=== PATIENT | male | born 1935 | race Two or more races ===

== ENCOUNTER 2018-01-09 15:01 | Inpatient (IN) | payer MEDICAID ==
[~2018-01-09] VITALS: Ht 157.5 cm; Wt 70.9 kg
[~2018-01-09 15:01] MED LIST: ACETAMINOPHEN-1 EAC1 ORAL; ACETAMINOPHEN120 MG ORAL; COLACE100 MG ORAL; LISINOPRIL10 MG ORAL; MILK OF MA400 MG/51 ORAL; TAMSULOSIN HCL0.4 MG ORAL
[2018-01-09 15:25] VITALS: BP 163/90
[2018-01-09] MEDS ORDERED: Phenazopyridine 200mg tab ORAL ONE (15:30)
[2018-01-09] MEDS ORDERED: Bacitracin Oint UD TOPIC ONE (15:30)
[2018-01-09] MEDS ORDERED: Tetanus/Diptheria/Pertussis Vaccine 0.5ml Syr IM ONE (15:30)
--- NOTE | 2018-01-09 15:30 | Emergency Room Report ---
History of Present Illness General Chief Complaint: Male Urogenital Problems Source: Patient (Mariela Nunez) Present Illness HPI 82-year-old male presents to the emergency department with several complaints. Pt. reports Dysuria, he denies fevers, chills, nausea, vomiting, abdominal pain. Patient reports his dysuria as 5 out of 10 in severity. Patient also states that he sustained a scratch from a dog yesterday on the right forearm. Patient does not know when his last tetanus vaccination was. Patient also is reporting that he has been out of his insulin for 3 days and his sugar is high. Patient reports past medical history of insulin-dependent diabetes, BPH, hypertension. (Mariela Nunez) Allergies: Coded Allergies: No Known Allergies (Unverified , 02/14/16) Patient History Limited by: language barrier Past Medical History: see triage record Past Surgical History: none Pertinent Family History: none Reviewed Nursing Documentation: PMH: Agreed; PSxH: Agreed (Mariela Nunez) Nursing Documentation-PMH Hx Hypertension: Yes Hx Diabetes: Yes - CKD STAGE 4 Hx Cerebrovascular Accident: No - BPH Hx Dementia: Yes (Mariela Nunez) Review of Systems All Other Systems: negative except mentioned in HPI (Mariela Nunez) Physical Exam Vital Signs Date Time Temp Pulse Resp B/P (MAP) Pulse Ox O2 Delivery O2 Flow Rate FiO2 01/09/18 15:12 98.7 84 18 163/90 95 Room Air 98.8 Sp02 EP Interpretation: reviewed, normal General Appearance: no apparent distress, alert, GCS 15, non-toxic, Chronically Ill Head: normocephalic, atraumatic Eyes: bilateral eye normal inspection, bilateral eye PERRL ENT: hearing grossly normal, normal voice Neck: full range of motion Respiratory: chest non-tender, lungs clear, normal breath sounds, no wheezing, speaking full sentences Cardiovascular #1: regular rate, rhythm, no edema Gastrointestinal: non tender, soft, other - mild lower abdominal distention Rectal: deferred Genitourinary: normal inspection, no CVA tenderness Musculoskeletal: back normal, gait/station normal, normal range of motion, non- tender Neurologic: alert, oriented x3, responsive, motor strength/tone normal, sensory intact, normal gait, speech normal, grossly normal Psychiatric: judgement/insight normal Skin: normal color, no rash, warm/dry, well hydrated, other - Skin tear/ scratch 3cm right lateral forearm, not bleeding. (Mariela Nunez) Medical Decision Making PA Attestation Dr. Espinal is my supervising physician whom pt. management has been discussed with. (Mariela Nunez) Diagnostic Impression: Primary Impression: UTI (urinary tract infection) Qualified Codes: N30.01 - Acute cystitis with hematuria Additional Impressions: Hyperglycemia Acute kidney injury ER Course 82-year-old male presents to the emergency department with several complaints. Pt. reports Dysuria, he denies fevers, chills, nausea, vomiting, abdominal pain. Patient reports his dysuria as 5 out of 10 in severity. Patient also states that he sustained a scratch from a dog yesterday on the right forearm. Patient does not know when his last tetanus vaccination was. Patient also is reporting that he has been out of his insulin for 3 days and his sugar is high. Patient reports past medical history of insulin-dependent diabetes, BPH, hypertension. PT MEDS: on 40mg Lasix daily, 10mg Amlodipine daily, 5mg Finasteride daily, 0.4mg Tamulosin QHS, Hydroxyzine 50mg Q6 pRN. Pt. also rx'd 600mg IBU and unknown dosage of Insulin. Ddx considered but are not limited to hyperglycemia, HONK, DKA, Encephalopathy , Renal failure, Cellulitis-animal bite. Vital signs: are WNL, pt. is afebrile H&PE are most consistent with [ ] ORDERS: - CBC -CMP -Acetone -UA: nitrite positive for UTI -Troponin -EKG: -CXR ED INTERVENTIONS: None required at this time. DISCHARGE: At this time pt. is stable for d/c to home. Will provide printed patient care instructions, and any necessary prescriptions. Care plan and follow up instructions have been discussed with the patient prior to discharge. (Mariela Nunez) ER Course I had a [id number] Encounter with this patient, urinalysis revealed evidence of UTI, he had 200 mL of urine output after Huerta catheter, he was given Rocephin, IV fluids, insulin for his hyperglycemia, I spoke with Dr. Cruz who agreed to admit the patient, hopefully his renal function improves after Huerta catheter placement and tighter glucose control. Patient has normal CO2, do not suspect DKA, will admit. (LAYNE ESPINAL M.D) EKG Diagnostic Results EP Interpretation: Dr. Espinal Rate: normal - 68 BPM Rhythm: NSR ST Segments: no acute changes ASA given to the pt in ED: No PA Scribe Text This Interpretation was scribed by SYLVIA Nunez. (Mariela Nunez) Last Vital Signs Date Time Temp Pulse Resp B/P (MAP) Pulse Ox O2 Delivery O2 Flow Rate FiO2 01/09/18 15:25 98.8 84 18 163/90 95 Room Air 98.8 (Mariela Nunez) Disposition: ADMITTED INPATIENT Condition: Serious Mariela Nunez Jan 09, 2018 15:30 LAYNE ESPINAL M.D Jan 09, 2018 20:14
[2018-01-09 16:01] LABS: BILIRUBIN, URINE NEGATIVE (NEGATIVE); COLOR,URINE PALE YELLOW; GLUCOSE, URINE (UA) 4+ (NEGATIVE); KETONES,URINE NEGATIVE (NEGATIVE); LEUKOCYTE ESTERASE ,URINE 3+ (NEGATIVE); NITRITE,URINE POSITIVE (NEGATIVE); PH,URINE 5 (4.5-8.0); PROTEIN,URINE 4+ (NEGATIVE); UROBILINOGEN,URINE NORMAL MG/DL (0.0-1.0)
[2018-01-09 16:04] LABS: APPEARANCE,URINE SLIGHTLY CLOUDY
[2018-01-09] MEDS ORDERED: Insulin Human Regular 100units/ml 3ml IV ONE ×2 (16:30→17:45)
[2018-01-09 17:05] LABS: BASOPHILS % (AUTO) 1.5 % (0.0-2.0); EOSINOPHILS % (AUTO) 16.2 % (0.0-3.0); HEMATOCRIT 43.4 % (42.0-52.0); HEMOGLOBIN 15.1 G/DL (14.2-18.0); LYMPHOCYTES % (AUTO) 28.9 % (20.0-45.0); MEAN CORPUSCULAR VOLUME 89 FL (80-99); MONOCYTES % (AUTO) 7.7 % (1.0-10.0); NEUTROPHILS % (AUTO) 45.7 % (45.0-75.0); PLATELET COUNT 184 K/UL (150-450); RED BLOOD COUNT 4.87 M/UL (4.70-6.10); RED CELL DISTRIBUTION WIDTH 11.6 % (11.6-14.8); WHITE BLOOD COUNT 9.6 K/UL (4.8-10.8)
[2018-01-09 17:21] LABS: ALANINE AMINOTRANSFERASE 17 U/L (12-78); ALBUMIN 3.5 G/DL (3.4-5.0); ALBUMIN/GLOBULIN RATIO 0.7 (1.0-2.7); ALKALINE PHOSPHATASE 112 U/L (46-116); ANION GAP 11 mmol/L (5-15); ASPARTATE AMINO TRANSFERASE 7 U/L (15-37); BILIRUBIN,TOTAL 0.6 MG/DL (0.2-1.0); BLOOD UREA NITROGEN 67 mg/dL (7-18); CALCIUM 8.9 MG/DL (8.5-10.1); CARBON DIOXIDE 24 MMOL/L (21-32); CHLORIDE 101 MMOL/L (98-107); CREATININE 4.5 MG/DL (0.55-1.30); POTASSIUM 4.3 MMOL/L (3.5-5.1); SODIUM 136 MMOL/L (136-145)
[2018-01-09] MEDS ORDERED: cefTRIAXone 1 GM in NS 55 ML IVPB SCH (17:45)
[2018-01-09 18:11] VITALS: BP 174/78
[2018-01-09 18:43] VITALS: BP 150/73
[2018-01-09] MEDS ORDERED: PROSCAR5 MG ORAL (19:58)
[2018-01-09] MEDS ORDERED: IBUPROFEN600 MG ORAL (19:58)
[2018-01-09] MEDS ORDERED: HYDRALAZINE HCL50 MG ORAL (19:58)
[2018-01-09] MEDS ORDERED: FUROSEMIDE40 MG ORAL (19:58)
[2018-01-09] MEDS ORDERED: AMLODIPINE BESY10 MG ORAL (19:58)
[2018-01-09 22:16] VITALS: BP 136/68
[2018-01-10] VITALS: BP 128/77
[2018-01-10 04:00] VITALS: BP 157/76
--- NOTE | 2018-01-10 05:00 | History and Physical Report ---
DATE OF ADMISSION: 01/09/2018 REASON FOR ADMISSION: Urinary tract infection and acute on chronic renal failure. HISTORY OF PRESENT ILLNESS: This is an 82-year-old male. He came to the emergency room complaining of dysuria of several days duration. The symptoms have been worsening over the past day. The patient has been out of his insulin for several days as well and notes very high sugar levels. It is unclear why he has not refilled his prescription. The patient also sustained a scratch from a dog yesterday on the right forearm. In the emergency room, he received a tetanus immunization. PAST MEDICAL HISTORY: Includes prostatic hypertrophy, cerebrovascular disease, insulin-requiring diabetes mellitus, and hypertension. ALLERGIES: None. FAMILY HISTORY: Noncontributory. SOCIAL HISTORY: He denies smoking, alcohol, or substance abuse. MEDICATIONS: Prior to admission, reviewed and reconciled. It is unclear . REVIEW OF SYSTEMS: ____ due to the patient's poor historical knowledge, however, pertinent data has been outlined above. PHYSICAL EXAMINATION: GENERAL: Alert, but withdrawn, no distress. VITAL SIGNS: Afebrile, blood pressure 162/90, pulse 84, and respiratory rate 18. HEENT: Conjunctivae are pink. Sclerae are anicteric. Oropharynx clear. Mucous membranes dry. NECK: Supple. Jugular venous pressure normal. LUNGS: Clear. CARDIAC: Regular rhythm and rate. Normal S1 and S2 with no murmur, rub, or gallop. ABDOMEN: Soft and nontender. No guarding. No rebound. No suprapubic pain. No CVA tenderness. EXTREMITIES: No clubbing or cyanosis. There is skin tear and scratches of around 3 cm over the right lateral forearm. No adenopathy. NEUROLOGIC: Nonfocal. LABORATORY AND DIAGNOSTIC DATA: Sodium 136, potassium 4.3, bicarbonate 24, BUN 67, creatinine 4.5, and glucose 532. White count 9.6 and hemoglobin 15.1. Urinalysis, 10 to 15 red cells, 5 to 10 white cells, and moderate bacteria. IMPRESSION: 1. Dog scratch and cellulitis, right forearm. 2. Diabetes mellitus, insulin-requiring and uncontrolled on therapy. 3. Urinary tract infection. 4. Acute on chronic renal failure. 5. History of prostatic hypertrophy. 6. History of hypertension. PLAN: 1. IV fluid hydration. 2. Bladder scan and renal ultrasound. 3. Monitor intake and output. 4. Empiric antibiotics, pending final culture results. 5. Continue tamsulosin and insulin titration. Sean Merchant M.D. DR: RENETTA JOB#: [id number] CC:
[2018-01-10] MEDS: NovoLOG Insulin Flexpen SUBQ SCH ×4 (06:05→21:01)
[2018-01-10 08:00] VITALS: BP 178/89
[2018-01-10 08:24] LABS: HEMATOCRIT 40.1 % (42.0-52.0); HEMOGLOBIN 13.7 G/DL (14.2-18.0); MEAN CORPUSCULAR VOLUME 88 FL (80-99); PLATELET COUNT 179 K/UL (150-450); RED BLOOD COUNT 4.56 M/UL (4.70-6.10); RED CELL DISTRIBUTION WIDTH 11.8 % (11.6-14.8); WHITE BLOOD COUNT 9.5 K/UL (4.8-10.8)
[2018-01-10 08:46] LABS: ALANINE AMINOTRANSFERASE 13 U/L (12-78); ALBUMIN 2.9 G/DL (3.4-5.0); ALBUMIN/GLOBULIN RATIO 0.7 (1.0-2.7); ALKALINE PHOSPHATASE 87 U/L (46-116); ANION GAP 11 mmol/L (5-15); ASPARTATE AMINO TRANSFERASE 8 U/L (15-37); BILIRUBIN,TOTAL 0.7 MG/DL (0.2-1.0); BLOOD UREA NITROGEN 57 mg/dL (7-18); CALCIUM 8.6 MG/DL (8.5-10.1); CARBON DIOXIDE 21 MMOL/L (21-32); CHLORIDE 110 MMOL/L (98-107); CREATININE 3.7 MG/DL (0.55-1.30); POTASSIUM 3.4 MMOL/L (3.5-5.1); SODIUM 142 MMOL/L (136-145)
[2018-01-10] MEDS: Heparin 5000 units/ml inj SUBQ SCH ×2 (08:54→21:00)
[2018-01-10 12:00] VITALS: BP 146/76
--- NOTE | 2018-01-10 14:23 | Diagnostic Imaging Report ---
Indication: Abnormal renal function tests, dysuria Technique: Grayscale and duplex images of the kidneys, retroperitoneum, and bladder were obtained. Comparison: none Findings: Right kidney measures 10.4 cm in length. Left kidney measures 9.6 cm in length. Both kidneys demonstrate normal echogenicity. Right kidney demonstrates equivocal minimal renal collecting system fullness, prominent extrarenal pelvis and proximal mild hydroureter. No hydronephrosis on the left.. There are renal cysts bilaterally.. Normal inferior vena cava. Bladder is empty, contains a Huerta catheter. Impression: Mild right renal findings is some fullness and slight proximal hydroureter, significance/etiology uncertain Empty bladder with a Huerta catheter Right renal cyst incidentally noted.
[2018-01-10 16:00] VITALS: BP 118/67
[2018-01-10] MEDS ORDERED: cefTRIAXone 1 GM in D5W 55 ML IVPB SCH (18:00)
[2018-01-10 20:00] VITALS: BP 159/77
[2018-01-10] MEDS: Tamsulosin 0.4mg cap ORAL SCH (20:57)
[2018-01-11] VITALS: BP 126/76
--- NOTE | 2018-01-11 02:30 | Progress Note ---
DATE: 01/10/2018 INTERNAL MEDICINE PROGRESS NOTE SUBJECTIVE: The patient has no nausea, vomiting, or shortness of breath. No noted abdominal pain. He is on IV fluids, antimicrobials, and has an indwelling Huerta catheter. Renal ultrasound revealed minimal right-sided collecting system abnormality, but no obstruction. PHYSICAL EXAMINATION: VITAL SIGNS: Blood pressure 159/77, earlier 118/67; heart rate 65; and respiratory rate 19. LUNGS: Clear. CARDIAC: Regular. ABDOMEN: Soft. No CVA tenderness. EXTREMITIES: No edema. LABORATORY DATA: White count 9.5 and hemoglobin 13.7. BUN down to 57 and creatinine 3.7. Hemoglobin A1c is 9.8. TSH is 4.98. Potassium 3.4. IMPRESSION: 1. Acute on chronic renal failure. 2. Urinary tract infection. 3. Sepsis. 4. Diabetes mellitus, on insulin and uncontrolled. 5. Possible hypothyroidism. 6. Prostatic hypertrophy with history of urinary retention. PLAN: 1. Titrate insulin. 2. Continue hydration, Huerta drainage, Flomax, and Proscar. 3. Potassium replacement. 4. Consider thyroid replacement. 5. Await final urine cultures. Sean Merchant M.D. DR: SOFI JOB#: [id number] CC:
[2018-01-11 04:00] VITALS: BP 121/86
[2018-01-11 06:32] LABS: HEMATOCRIT 38.8 % (42.0-52.0); HEMOGLOBIN 13.6 G/DL (14.2-18.0); MEAN CORPUSCULAR VOLUME 87 FL (80-99); PLATELET COUNT 177 K/UL (150-450); RED BLOOD COUNT 4.45 M/UL (4.70-6.10); RED CELL DISTRIBUTION WIDTH 11.4 % (11.6-14.8); WHITE BLOOD COUNT 9.2 K/UL (4.8-10.8)
[2018-01-11] MEDS: NovoLOG Insulin Flexpen SUBQ SCH ×5 (06:55→21:15)
[2018-01-11 07:02] LABS: CHLORIDE 110 MMOL/L (98-107); POTASSIUM 3.7 MMOL/L (3.5-5.1); SODIUM 142 MMOL/L (136-145)
[2018-01-11 07:30] LABS: ALANINE AMINOTRANSFERASE 14 U/L (12-78); ALBUMIN 2.8 G/DL (3.4-5.0); ALBUMIN/GLOBULIN RATIO 0.7 (1.0-2.7); ALKALINE PHOSPHATASE 83 U/L (46-116); ANION GAP 13 mmol/L (5-15); ASPARTATE AMINO TRANSFERASE 8 U/L (15-37); BILIRUBIN,TOTAL 0.4 MG/DL (0.2-1.0); BLOOD UREA NITROGEN 50 mg/dL (7-18); CALCIUM 8.4 MG/DL (8.5-10.1); CARBON DIOXIDE 20 MMOL/L (21-32); CREATININE 3.5 MG/DL (0.55-1.30)
[2018-01-11 08:00] VITALS: BP 129/76
[2018-01-11] MEDS: Heparin 5000 units/ml inj SUBQ SCH ×2 (08:46→21:11)
[2018-01-11 12:00] VITALS: BP 137/72
[2018-01-11 16:00] VITALS: BP 135/75
[2018-01-11 20:00] VITALS: BP 142/78
[2018-01-11] MEDS ORDERED: Ertapenem 0.5 GM in NS 55 ML IVPB SCH (20:00)
[2018-01-11] MEDS: Tamsulosin 0.4mg cap ORAL SCH (21:10)
[2018-01-12] VITALS: BP 140/80
--- NOTE | 2018-01-12 02:00 | Progress Note ---
DATE: 01/11/2018 INTERNAL MEDICINE PROGRESS NOTE SUBJECTIVE: The patient remains without new complaints. No chest pain or shortness of breath, but with urinary catheter. Culture with ESBL pathogen of the E. coli species. OBJECTIVE: VITAL SIGNS: Blood pressure 135/75, heart rate 85, respiratory rate 18, and afebrile. LUNGS: Clear. CARDIAC: Regular. Normal S1 and S2. No murmur. ABDOMEN: Soft. EXTREMITIES: No edema. LABORATORY DATA: White count 9.2 and hemoglobin 13.6. Potassium 3.7, BUN 50, creatinine 3.5, and glucose 206. IMPRESSION: 1. Urinary tract infection with sepsis. 2. Escherichia coli extended-spectrum beta-lactamase pathogen. 3. Hypovolemia with dehydration. 4. Acute on chronic renal failure. 5. Prostatic hypertrophy with history of urinary retention. 6. Diabetes mellitus, on insulin with elevated glucose. PLAN: 1. Adjust antimicrobials. 2. Discontinue Huerta catheter. 3. Observe for urinary retention. 4. Titrate diabetic regimen. 5. Continue acute care. Sean Merchant M.D. DR: ROSS JOB#: [id number] CC:
[2018-01-12 04:00] VITALS: BP 155/90
[2018-01-12] MEDS: GlipiZIDE 5mg tab ORAL SCH (06:14)
[2018-01-12] MEDS: NovoLOG Insulin Flexpen SUBQ SCH ×4 (06:15→20:59)
[2018-01-12 06:29] LABS: HEMATOCRIT 39.6 % (42.0-52.0); HEMOGLOBIN 13.8 G/DL (14.2-18.0); MEAN CORPUSCULAR VOLUME 87 FL (80-99); PLATELET COUNT 171 K/UL (150-450); RED BLOOD COUNT 4.52 M/UL (4.70-6.10); RED CELL DISTRIBUTION WIDTH 11.9 % (11.6-14.8); WHITE BLOOD COUNT 9.1 K/UL (4.8-10.8)
[2018-01-12 07:20] LABS: ANION GAP 11 mmol/L (5-15); BLOOD UREA NITROGEN 39 mg/dL (7-18); CALCIUM 8.6 MG/DL (8.5-10.1); CARBON DIOXIDE 22 MMOL/L (21-32); CHLORIDE 110 MMOL/L (98-107); CREATININE 3.4 MG/DL (0.55-1.30); SODIUM 143 MMOL/L (136-145)
[2018-01-12 08:00] VITALS: BP 146/81
[2018-01-12] MEDS: Heparin 5000 units/ml inj SUBQ SCH ×2 (09:44→21:02)
[2018-01-12 12:00] VITALS: BP 140/78
[2018-01-12 16:00] VITALS: BP 148/82
--- NOTE | 2018-01-12 19:15 | Consultation ---
DATE OF CONSULTATION: 01/12/2018 INFECTIOUS DISEASE CONSULTATION This consult is for coverage of Dr. Duffy. CONSULTING PHYSICIAN: Robbie Vyas M.D. PRIMARY ATTENDING PHYSICIAN: Sean Merchant M.D. REASON FOR CONSULT: UTI. HISTORY OF PRESENT ILLNESS: This is an 82-year-old male, admitted on 01/09/2018 complaining of dysuria. The patient has history of diabetes for long time, was also found to have high blood sugar. The patient states that he had sustained a scratch from the dog one day before admission. The dog was a family pet and it bite or scratched the right forearm. The wound was not too deep. The patient was out of insulin three days before admission. 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 MEDICATIONS: Meropenem, glipizide, sodium chloride, Flomax, amlodipine, ertapenem, finasteride, Protonix, insulin, temazepam, Tylenol and Zofran. SOCIAL HISTORY: He is originally from [facility]. He has a son and lives with his son. Denies alcohol, drug abuse, or smoking. 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 ALLERGIES: Allergic to penicillin. REVIEW OF SYSTEMS: Decreased hearing. No coughing. No nausea. No vomiting. No pain. No dysuria at the time of examination, ambulatory with walker. PHYSICAL EXAMINATION: VITAL SIGNS: Afebrile since admission, temperature 97.7, pulse 80, and blood pressure 146/81. GENERAL APPEARANCE: No acute distress. HEAD AND NECK: [place] conjunctivae. HEART: S1 and S2. Regular. LUNGS: Clear. ABDOMEN: Soft and nontender. GENITOURINARY: He has Huerta catheter. EXTREMITIES: He has no edema. LABORATORY AND DIAGNOSTIC DATA: WBC 9.1, hemoglobin 13.8, hematocrit 39.6, and platelets 171. Sodium 143, potassium 4, chloride 110, bicarbonate 22, BUN 39, and creatinine 3.4. UA showed rbc of 10 to 50, wbc of 5 to 10, leukocyte esterase 3+, bacteria moderate, nitrite positive. Urine culture grew ESBL E. coli. The patient had a renal ultrasound that showed mild right renal findings, some fullness and slight proximal hydroureter, empty bladder. IMPRESSION: Escherichia coli ESBL urinary tract infection. The patient seems to have acute cystitis with hematuria, acute renal failure with a history of chronic kidney disease, diabetes mellitus type 2 with hyperglycemia, BPH, hypertension, dog bite or scratch that is shallow and does not seem to be infected. RECOMMENDATION: I would continue with meropenem. At the end of my exam, I thank Dr. Merchant for involving me in the care of this patient. Robbie Vyas M.D. DR: TIMUR JOB#: [id number] CC: TATIANA
[2018-01-12 20:00] VITALS: BP 148/86
[2018-01-12] MEDS: Meropenem 500 MG in NS 55 ML IVPB SCH (20:43)
[2018-01-12] MEDS: Tamsulosin 0.4mg cap ORAL SCH (21:00)
--- NOTE | 2018-01-12 23:45 | Progress Note ---
INTERNAL MEDICINE PROGRESS NOTE DATE: 01/12/2018 SUBJECTIVE: The patient without fevers. No chest pain or shortness of breath. No nausea, vomiting, or abdominal pain. OBJECTIVE: VITAL SIGNS: Blood pressure 146/81, pulse 80, and respirations 20. Afebrile. LUNGS: Clear. CARDIAC: Regular. ABDOMEN: Soft. SKIN: Catheter in place. EXTREMITIES: No edema. LABORATORY DATA: White count 9.1, hemoglobin 13.8. BUN 39, creatinine 3.4. PSA 1.2. IMPRESSION: 1. Acute on chronic renal failure, improving. 2. Escherichia coli ESBL urinary tract infection. 3. Diabetes mellitus, poorly controlled with improvement. PLAN: 1. DC Huerta. 2. Continue ertapenem with intravenous route. 3. Cautious hydration with IV fluids. 4. Monitor renal parameters. 5. Titrate diabetic regimen. Sean Merchant M.D. DR: FRANCESCA JOB#: [id number] CC:
[2018-01-13] VITALS: BP 141/82
[2018-01-13 04:00] VITALS: BP 137/78
[2018-01-13] MEDS: GlipiZIDE 5mg tab ORAL SCH (06:00)
[2018-01-13] MEDS: NovoLOG Insulin Flexpen SUBQ SCH ×4 (06:01→20:46)
[2018-01-13 08:00] VITALS: BP 135/92
[2018-01-13] MEDS: Meropenem 500 MG in NS 55 ML IVPB SCH ×2 (08:05→20:34)
[2018-01-13] MEDS: Heparin 5000 units/ml inj SUBQ SCH ×2 (08:07→20:32)
--- NOTE | 2018-01-13 11:47 | Infectious Diseases Prog Note ---
Assessment/Plan Assessment/Plan antibiotics : meropenem A 1. e.coli esbl UTI 2. renal failure improving 3. diabetes mellitus 4. hypertension P 1. continue meropenem 4 more days 2. will follow up cultures Subjective ROS Limited/Unobtainable: Yes Allergies: Coded Allergies: PENICILLINS (Verified Allergy, Unknown, 01/10/18) Objective Vital Signs Last 24 Hour Vital Signs Date Time Temp Pulse Resp B/P (MAP) Pulse Ox O2 Delivery O2 Flow Rate FiO2 01/13/18 09:00 Room Air 01/13/18 08:17 85 135/92 01/13/18 08:00 98.2 85 20 135/92 (106) 85 98.2 01/13/18 04:00 97.3 78 20 137/78 (97) 97 97.3 01/13/18 00:00 97.7 89 20 141/82 (101) 99 97.7 01/12/18 21:14 Room Air 01/12/18 20:00 97.3 82 18 148/86 (106) 98 97.3 01/12/18 17:00 Room Air 01/12/18 16:00 97.9 71 18 148/82 (104) 98 97.9 01/12/18 12:00 97.0 81 18 140/78 (98) 98 97.0 Height (Feet): 5 Height (Inches): 2.00 Weight (Pounds): 150 Respiratory/Chest: lungs clear Cardiovascular: normal rate, regular rhythm, no gallop/murmur Abdomen: soft, non tender Extremities: no edema Current Medications Medications (Trade) Dose Ordered Sig/Venessa Route PRN Reason Start Time Stop Time Status Last Admin Dose Admin Acetaminophen (Tylenol) 650 mg Q4H PRN ORAL Mild Pain/Temp > 100.5 01/09/18 21:15 02/08/18 21:14 Amlodipine Besylate (Norvasc) 10 mg DAILY ORAL 01/10/18 09:00 02/09/18 08:59 01/13/18 08:17 Dextrose (Dextrose 50%) 25 ml Q30M PRN IV Hypoglycemia 01/09/18 21:15 02/08/18 21:14 Dextrose (Dextrose 50%) 50 ml Q30M PRN IV Hypoglycemia 01/09/18 21:15 02/08/18 21:14 Finasteride (Proscar) 5 mg DAILY ORAL 01/10/18 09:00 02/09/18 08:59 01/13/18 08:05 Glipizide (Glucotrol) 5 mg ACBREAKFAST ORAL 01/12/18 06:30 02/11/18 06:29 01/13/18 06:00 Heparin Sodium (Porcine) (Heparin 5000 units/ml) 5,000 units EVERY 12 HOURS SUBQ 01/10/18 09:00 02/09/18 08:59 01/13/18 08:07 Insulin Aspart (NovoLOG) BEFORE MEALS AND HS SUBQ 01/10/18 06:30 02/09/18 06:29 01/13/18 06:01 Meropenem 500 mg/ Sodium Chloride 55 ml @ 110 mls/hr Q12H IVPB 01/12/18 20:00 01/17/18 19:59 01/13/18 08:05 Ondansetron HCl (Zofran) 4 mg Q6H PRN IVP Nausea & Vomiting 01/09/18 21:15 02/08/18 21:14 Pantoprazole (Protonix) 40 mg DAILY ORAL 01/10/18 09:00 02/09/18 08:59 01/13/18 08:05 Sodium Chloride 1,000 ml @ 75 mls/hr [id number] IV 01/11/18 01:30 02/10/18 01:29 01/13/18 06:03 Tamsulosin HCl (Flomax) 0.4 mg BEDTIME ORAL 01/10/18 21:00 02/09/18 20:59 01/12/18 21:00 Temazepam (Restoril) 15 mg HSPRN PRN ORAL Insomnia 01/09/18 21:45 01/16/18 21:44 01/12/18 21:00 CHRISTINA SANTOS Jan 13, 2018 11:47
[2018-01-13 12:00] VITALS: BP 134/88
--- NOTE | 2018-01-13 14:54 | Cardiology Report ---
APPROVED REPORT EKG Measurement Heart [id number] Normal sinus rhythm Normal ECG
[2018-01-13 16:00] VITALS: BP 156/88
[2018-01-13 20:00] VITALS: BP 141/81
[2018-01-13] MEDS ORDERED: Tubing IV Secondary IV ONE (20:05)
[2018-01-13] MEDS: Tamsulosin 0.4mg cap ORAL SCH (20:34)
[2018-01-14] VITALS: BP 146/77
[2018-01-14 04:00] VITALS: BP 142/79
--- NOTE | 2018-01-14 04:45 | Progress Note ---
DATE: 01/13/2018 INTERNAL MEDICINE PROGRESS NOTE SUBJECTIVE: The patient has no shortness of breath, abdominal pain, or chest pain. He remains on IV antibiotics. ____ ESBL urinary tract infection. OBJECTIVE: VITAL SIGNS: Blood pressure 148/80, pulse 80, and respiratory rate 20. LUNGS: Clear. CARDIAC: Regular. ABDOMEN: Soft. No CVA tenderness. EXTREMITIES: No edema. PLAN: 1. Continue intravenous antibiotics per Infectious Disease recommendation. 2. Adjust diabetic regimen. 3. Check for postvoid residual. Sean Merchant M.D. DR: PURA JOB#: [id number] CC:
[2018-01-14] MEDS: GlipiZIDE 5mg tab ORAL SCH ×2 (06:23→16:40)
[2018-01-14] MEDS: NovoLOG Insulin Flexpen SUBQ SCH ×4 (06:23→20:40)
[2018-01-14 06:38] LABS: BASOPHILS % (AUTO) 1.5 % (0.0-2.0); EOSINOPHILS % (AUTO) 18.2 % (0.0-3.0); HEMATOCRIT 39.6 % (42.0-52.0); MEAN CORPUSCULAR VOLUME 88 FL (80-99); MONOCYTES % (AUTO) 8.4 % (1.0-10.0); NEUTROPHILS % (AUTO) 32.9 % (45.0-75.0); PLATELET COUNT 173 K/UL (150-450); RED BLOOD COUNT 4.52 M/UL (4.70-6.10); RED CELL DISTRIBUTION WIDTH 11.8 % (11.6-14.8); WHITE BLOOD COUNT 8.6 K/UL (4.8-10.8)
[2018-01-14 07:24] LABS: ALANINE AMINOTRANSFERASE 24 U/L (12-78); ALBUMIN 2.8 G/DL (3.4-5.0); ALBUMIN/GLOBULIN RATIO 0.7 (1.0-2.7); ALKALINE PHOSPHATASE 93 U/L (46-116); ASPARTATE AMINO TRANSFERASE 22 U/L (15-37); BILIRUBIN,TOTAL 0.5 MG/DL (0.2-1.0); BLOOD UREA NITROGEN 32 mg/dL (7-18); CALCIUM 9.1 MG/DL (8.5-10.1); CHLORIDE 111 MMOL/L (98-107); CREATININE 3.1 MG/DL (0.55-1.30); POTASSIUM 3.7 MMOL/L (3.5-5.1); SODIUM 144 MMOL/L (136-145)
[2018-01-14 07:59] LABS: CARBON DIOXIDE 21 MMOL/L (21-32)
[2018-01-14 08:00] VITALS: BP 148/85
[2018-01-14] MEDS: Meropenem 500 MG in NS 55 ML IVPB SCH ×2 (08:39→20:32)
[2018-01-14] MEDS: Heparin 5000 units/ml inj SUBQ SCH ×2 (08:40→20:34)
[2018-01-14 12:00] VITALS: BP 158/88
--- NOTE | 2018-01-14 14:17 | Infectious Diseases Prog Note ---
Assessment/Plan Assessment/Plan A: 1. E.coli ESBL UTI 2. renal failure improving 3. diabetes mellitus 4. hypertension P 1. continue meropenem 3 more days Subjective ROS Limited/Unobtainable: Yes Neurologic: Reports: weakness, other - in legs Allergies: Coded Allergies: PENICILLINS (Verified Allergy, Unknown, 01/10/18) Objective Vital Signs Last 24 Hour Vital Signs Date Time Temp Pulse Resp B/P (MAP) Pulse Ox O2 Delivery O2 Flow Rate FiO2 01/14/18 12:00 97.5 75 20 158/88 (111) 97 97.5 01/14/18 09:00 Room Air 01/14/18 08:40 76 148/85 01/14/18 08:00 96.6 76 19 148/85 (106) 96 96.6 01/14/18 04:00 98.2 79 19 142/79 (100) 95 98.2 01/14/18 00:00 98.7 68 19 146/77 (100) 98 98.7 01/13/18 21:00 Room Air 01/13/18 20:00 99.0 66 20 141/81 (101) 97 99.0 01/13/18 16:00 97.7 84 20 156/88 (110) 96 97.7 Height (Feet): 5 Height (Inches): 2.00 Weight (Pounds): 150 General Appearance: no acute distress HEENT: mucous membranes moist Respiratory/Chest: lungs clear Cardiovascular: normal peripheral pulses Abdomen: soft, non tender Neurologic/Psychiatric: alert, responsive, other - hearig loss Laboratory Tests Test 01/14/18 06:00 White Blood Count 8.6 K/UL (4.8-10.8) Red Blood Count 4.52 M/UL (4.70-6.10) L Hemoglobin 14.0 G/DL (14.2-18.0) L Hematocrit 39.6 % (42.0-52.0) L Mean Corpuscular Volume 88 FL (80-99) Mean Corpuscular Hemoglobin 30.9 PG (27.0-31.0) Mean Corpuscular Hemoglobin Concent 35.3 G/DL (32.0-36.0) Red Cell Distribution Width 11.8 % (11.6-14.8) Platelet Count 173 K/UL (150-450) Mean Platelet Volume 10.9 FL (6.5-10.1) H Neutrophils (%) (Auto) 32.9 % (45.0-75.0) L Lymphocytes (%) (Auto) 39.0 % (20.0-45.0) Monocytes (%) (Auto) 8.4 % (1.0-10.0) Eosinophils (%) (Auto) 18.2 % (0.0-3.0) H Basophils (%) (Auto) 1.5 % (0.0-2.0) Sodium Level 144 MMOL/L (136-145) Potassium Level 3.7 MMOL/L (3.5-5.1) Chloride Level 111 MMOL/L (98-107) H Carbon Dioxide Level 21 MMOL/L (21-32) Blood Urea Nitrogen 32 mg/dL (7-18) H Creatinine 3.1 MG/DL (0.55-1.30) H Estimat Glomerular Filtration Rate mL/min (>60) Glucose Level 180 MG/DL (74-106) H Calcium Level 9.1 MG/DL (8.5-10.1) Magnesium Level 1.8 MG/DL (1.8-2.4) Total Bilirubin 0.5 MG/DL (0.2-1.0) Aspartate Amino Transf (AST/SGOT) 22 U/L (15-37) Alanine Aminotransferase (ALT/SGPT) 24 U/L (12-78) Alkaline Phosphatase 93 U/L (46-116) Pro-B-Type Natriuretic Peptide 641 pg/mL (0-125) H Total Protein 6.9 G/DL (6.4-8.2) Albumin 2.8 G/DL (3.4-5.0) L Globulin 4.1 g/dL Albumin/Globulin Ratio 0.7 (1.0-2.7) L Current Medications Medications (Trade) Dose Ordered Sig/Venessa Route PRN Reason Start Time Stop Time Status Last Admin Dose Admin Acetaminophen (Tylenol) 650 mg Q4H PRN ORAL Mild Pain/Temp > 100.5 01/09/18 21:15 02/08/18 21:14 Amlodipine Besylate (Norvasc) 10 mg DAILY ORAL 01/10/18 09:00 02/09/18 08:59 01/14/18 08:40 Dextrose (Dextrose 50%) 25 ml Q30M PRN IV Hypoglycemia 01/09/18 21:15 02/08/18 21:14 Dextrose (Dextrose 50%) 50 ml Q30M PRN IV Hypoglycemia 01/09/18 21:15 02/08/18 21:14 Finasteride (Proscar) 5 mg DAILY ORAL 01/10/18 09:00 02/09/18 08:59 01/14/18 08:40 Glipizide (Glucotrol) 5 mg BIAC ORAL 01/14/18 06:30 02/13/18 06:29 01/14/18 06:23 Heparin Sodium (Porcine) (Heparin 5000 units/ml) 5,000 units EVERY 12 HOURS SUBQ 01/10/18 09:00 02/09/18 08:59 01/14/18 08:40 Insulin Aspart (NovoLOG) BEFORE MEALS AND HS SUBQ 01/10/18 06:30 02/09/18 06:29 01/14/18 12:01 Meropenem 500 mg/ Sodium Chloride 55 ml @ 110 mls/hr Q12H IVPB 01/12/18 20:00 01/17/18 19:59 01/14/18 08:39 Ondansetron HCl (Zofran) 4 mg Q6H PRN IVP Nausea & Vomiting 01/09/18 21:15 02/08/18 21:14 Pantoprazole (Protonix) 40 mg DAILY ORAL 01/10/18 09:00 02/09/18 08:59 01/14/18 08:41 Sodium Chloride 1,000 ml @ 75 mls/hr [id number] IV 01/11/18 01:30 02/10/18 01:29 01/13/18 20:33 Tamsulosin HCl (Flomax) 0.4 mg BEDTIME ORAL 01/10/18 21:00 02/09/18 20:59 01/13/18 20:34 Temazepam (Restoril) 15 mg HSPRN PRN ORAL Insomnia 01/09/18 21:45 01/16/18 21:44 01/13/18 20:34 Robbie Vyas MD Jan 14, 2018 14:17
[2018-01-14 16:00] VITALS: BP 129/64
[2018-01-14 20:00] VITALS: BP 154/86
[2018-01-14] MEDS: Tamsulosin 0.4mg cap ORAL SCH (20:32)
[2018-01-15] VITALS: BP 129/79
--- NOTE | 2018-01-15 01:45 | Progress Note ---
DATE: 01/14/2018 INTERNAL MEDICINE PROGRESS NOTE SUBJECTIVE: The patient without any new complaints. No nausea, vomiting, or abdominal pain. No chest pain or shortness of breath. Condom catheter is in place. OBJECTIVE: VITAL SIGNS: Blood pressure 148/85, pulse 76, and respiratory rate 19. LUNGS: Clear. CARDIAC: Regular. ABDOMEN: Soft. EXTREMITIES: No edema. Postvoid residual is 170 mL. LABORATORY DATA: White count 8.6, hemoglobin 14. Albumin 2.8. BUN 32 and creatinine 3.1. IMPRESSION: 1. Urinary tract infection with Escherichia coli multi-drug resistant pathogen. 2. Moderate protein-calorie malnutrition. 3. Improving renal failure. 4. Chronic diastolic congestive heart failure. 5. Chronic kidney disease. PLAN: 1. Antimicrobials per Infectious Disease sales and service consultant. 2. Titrate antihypertensives. 3. Protein supplement. 4. Monitor volume status and cardiorenal parameters. 5. Continue cautious hydration. Sean Merchant M.D. DR: JORJE JOB#: [id number] CC:
[2018-01-15 04:00] VITALS: BP 150/86
[2018-01-15] MEDS: GlipiZIDE 5mg tab ORAL SCH ×2 (06:24→17:19)
[2018-01-15] MEDS: NovoLOG Insulin Flexpen SUBQ SCH ×4 (06:33→20:39)
[2018-01-15 08:00] VITALS: BP 158/79
[2018-01-15] MEDS: Heparin 5000 units/ml inj SUBQ SCH ×2 (08:41→20:39)
[2018-01-15] MEDS: Meropenem 500 MG in NS 55 ML IVPB SCH ×2 (08:42→20:38)
--- NOTE | 2018-01-15 11:13 | Infectious Diseases Prog Note ---
Assessment/Plan Assessment/Plan antibiotics : meropenem A 1. e.coli esbl UTI 2. renal failure improving 3. diabetes mellitus 4. hypertension P 1. continue meropenem 2 more days 2. will follow up cultures Subjective Constitutional: Denies: fever, chills Respiratory: Denies: shortness of breath, dry cough Gastrointestinal/Abdominal: Denies: nausea, vomiting, diarrhea Musculoskeletal: Denies: pain Allergies: Coded Allergies: PENICILLINS (Verified Allergy, Unknown, 01/10/18) Objective Vital Signs Last 24 Hour Vital Signs Date Time Temp Pulse Resp B/P (MAP) Pulse Ox O2 Delivery O2 Flow Rate FiO2 01/15/18 09:00 Room Air 01/15/18 08:40 74 158/79 01/15/18 08:00 97.5 74 19 158/79 (105) 95 97.5 01/15/18 04:00 98.1 83 19 150/86 (107) 97 98.1 01/15/18 00:00 98.3 81 18 129/79 (96) 96 98.3 01/14/18 21:00 Room Air 01/14/18 20:00 98.4 77 18 154/86 (108) 95 98.4 01/14/18 16:00 98.0 81 18 129/64 (85) 97 98.0 01/14/18 12:00 97.5 75 20 158/88 (111) 97 97.5 Height (Feet): 5 Height (Inches): 2.00 Weight (Pounds): 156 Respiratory/Chest: lungs clear Cardiovascular: normal rate, regular rhythm, no gallop/murmur Abdomen: soft, non tender Extremities: no edema Current Medications Medications (Trade) Dose Ordered Sig/Venessa Route PRN Reason Start Time Stop Time Status Last Admin Dose Admin Acetaminophen (Tylenol) 650 mg Q4H PRN ORAL Mild Pain/Temp > 100.5 01/09/18 21:15 02/08/18 21:14 01/14/18 22:19 Amlodipine Besylate (Norvasc) 10 mg DAILY ORAL 01/10/18 09:00 02/09/18 08:59 01/15/18 08:40 Dextrose (Dextrose 50%) 25 ml Q30M PRN IV Hypoglycemia 01/09/18 21:15 02/08/18 21:14 Dextrose (Dextrose 50%) 50 ml Q30M PRN IV Hypoglycemia 01/09/18 21:15 02/08/18 21:14 Finasteride (Proscar) 5 mg DAILY ORAL 01/10/18 09:00 02/09/18 08:59 01/15/18 08:40 Glipizide (Glucotrol) 5 mg BIAC ORAL 01/14/18 06:30 02/13/18 06:29 01/15/18 06:24 Heparin Sodium (Porcine) (Heparin 5000 units/ml) 5,000 units EVERY 12 HOURS SUBQ 01/10/18 09:00 02/09/18 08:59 01/15/18 08:41 Insulin Aspart (NovoLOG) BEFORE MEALS AND HS SUBQ 01/10/18 06:30 02/09/18 06:29 01/15/18 06:33 Meropenem 500 mg/ Sodium Chloride 55 ml @ 110 mls/hr Q12H IVPB 01/12/18 20:00 01/17/18 19:59 01/15/18 08:42 Ondansetron HCl (Zofran) 4 mg Q6H PRN IVP Nausea & Vomiting 01/09/18 21:15 02/08/18 21:14 Pantoprazole (Protonix) 40 mg DAILY ORAL 01/10/18 09:00 02/09/18 08:59 01/15/18 08:40 Sodium Chloride 1,000 ml @ 75 mls/hr [id number] IV 01/11/18 01:30 02/10/18 01:29 01/15/18 06:24 Tamsulosin HCl (Flomax) 0.4 mg BEDTIME ORAL 01/10/18 21:00 02/09/18 20:59 01/14/18 20:32 Temazepam (Restoril) 15 mg HSPRN PRN ORAL Insomnia 01/09/18 21:45 01/16/18 21:44 01/14/18 20:32 CHRISTINA SANTOS Jan 15, 2018 11:13
[2018-01-15 12:00] VITALS: BP 157/75
[2018-01-15 16:00] VITALS: BP 145/86
[2018-01-15] MEDS ORDERED: Milk of Magnesia 30ml Ud ORAL PRN (18:45)
[2018-01-15] MEDS ORDERED: Milk of Magnesia 30ml Ud ORAL SCH (18:46)
[2018-01-15 20:00] VITALS: BP 154/75
[2018-01-15] MEDS: Tamsulosin 0.4mg cap ORAL SCH (20:38)
[2018-01-16] VITALS: BP 131/61
[2018-01-16 04:00] VITALS: BP 150/82
[2018-01-16] MEDS: GlipiZIDE 5mg tab ORAL SCH ×2 (06:23→17:09)
[2018-01-16] MEDS: NovoLOG Insulin Flexpen SUBQ SCH ×4 (06:25→21:15)
[2018-01-16] MEDS: Meropenem 500 MG in NS 55 ML IVPB SCH ×2 (08:15→20:37)
[2018-01-16 08:22] VITALS: BP 142/87
[2018-01-16] MEDS: Docusate 250mg cap ORAL SCH (08:31)
[2018-01-16] MEDS: Heparin 5000 units/ml inj SUBQ SCH ×2 (08:33→21:10)
[2018-01-16 12:00] VITALS: BP 134/65
--- NOTE | 2018-01-16 13:48 | Infectious Diseases Prog Note ---
Assessment/Plan Assessment/Plan A: 1. E.coli ESBL UTI 2. renal failure improving 3. diabetes mellitus 4. hypertension P 1. continue meropenem 1 more day Subjective ROS Limited/Unobtainable: Yes Allergies: Coded Allergies: PENICILLINS (Verified Allergy, Unknown, 01/10/18) Objective Vital Signs Last 24 Hour Vital Signs Date Time Temp Pulse Resp B/P (MAP) Pulse Ox O2 Delivery O2 Flow Rate FiO2 01/16/18 12:00 98.1 85 20 134/65 (88) 98 98.1 01/16/18 09:00 Room Air 01/16/18 08:32 78 142/87 01/16/18 08:22 97.3 78 18 142/87 (105) 96 97.3 01/16/18 04:00 98.1 68 19 150/82 (104) 96 98.1 01/16/18 00:00 98.0 76 19 131/61 (84) 96 98.0 01/15/18 21:00 Room Air 01/15/18 20:00 97.6 69 19 154/75 (101) 96 97.6 01/15/18 16:00 98.1 69 18 145/86 (105) 97 98.1 Height (Feet): 5 Height (Inches): 2.00 Weight (Pounds): 156 General Appearance: no acute distress HEENT: mucous membranes moist Respiratory/Chest: lungs clear Cardiovascular: normal rate Abdomen: soft, non tender Extremities: no edema Neurologic/Psychiatric: alert, responsive, other - hearing loss Current Medications Medications (Trade) Dose Ordered Sig/Venessa Route PRN Reason Start Time Stop Time Status Last Admin Dose Admin Acetaminophen (Tylenol) 650 mg Q4H PRN ORAL Mild Pain/Temp > 100.5 01/09/18 21:15 02/08/18 21:14 01/15/18 21:32 Amlodipine Besylate (Norvasc) 10 mg DAILY ORAL 01/10/18 09:00 02/09/18 08:59 01/16/18 08:32 Dextrose (Dextrose 50%) 25 ml Q30M PRN IV Hypoglycemia 01/09/18 21:15 02/08/18 21:14 Dextrose (Dextrose 50%) 50 ml Q30M PRN IV Hypoglycemia 01/09/18 21:15 02/08/18 21:14 Docusate Sodium (Colace) 250 mg DAILY ORAL 01/16/18 09:00 02/15/18 08:59 01/16/18 08:31 Finasteride (Proscar) 5 mg DAILY ORAL 01/10/18 09:00 02/09/18 08:59 01/16/18 08:32 Glipizide (Glucotrol) 5 mg BIAC ORAL 01/14/18 06:30 02/13/18 06:29 01/16/18 06:23 Heparin Sodium (Porcine) (Heparin 5000 units/ml) 5,000 units EVERY 12 HOURS SUBQ 01/10/18 09:00 02/09/18 08:59 01/16/18 08:33 Insulin Aspart (NovoLOG) BEFORE MEALS AND HS SUBQ 01/10/18 06:30 02/09/18 06:29 01/16/18 11:55 Magnesium Hydroxide (Mom) 30 ml HSPRN PRN ORAL Constipation 01/15/18 18:45 02/14/18 18:44 Meropenem 500 mg/ Sodium Chloride 55 ml @ 110 mls/hr Q12H IVPB 01/12/18 20:00 01/17/18 19:59 01/16/18 08:15 Ondansetron HCl (Zofran) 4 mg Q6H PRN IVP Nausea & Vomiting 01/09/18 21:15 02/08/18 21:14 Pantoprazole (Protonix) 40 mg DAILY ORAL 01/10/18 09:00 02/09/18 08:59 01/16/18 08:32 Sodium Chloride 1,000 ml @ 75 mls/hr [id number] IV 01/11/18 01:30 02/10/18 01:29 01/15/18 20:50 Tamsulosin HCl (Flomax) 0.4 mg BEDTIME ORAL 01/10/18 21:00 02/09/18 20:59 01/15/18 20:38 Temazepam (Restoril) 15 mg HSPRN PRN ORAL Insomnia 01/09/18 21:45 01/16/18 21:44 01/15/18 20:38 Robbie Vyas MD Jan 16, 2018 13:48
[2018-01-16 16:00] VITALS: BP 140/77
[2018-01-16 20:00] VITALS: BP 143/75
[2018-01-16] MEDS: Tamsulosin 0.4mg cap ORAL SCH (21:16)
[2018-01-17] VITALS: BP 148/76
[2018-01-17 04:00] VITALS: BP 129/77
[2018-01-17] MEDS: GlipiZIDE 5mg tab ORAL SCH ×2 (06:14→17:06)
[2018-01-17] MEDS: NovoLOG Insulin Flexpen SUBQ SCH ×4 (06:15→21:45)
[2018-01-17 08:09] VITALS: BP 154/90
[2018-01-17] MEDS: Meropenem 500 MG in NS 55 ML IVPB SCH (08:15)
[2018-01-17] MEDS: Docusate 250mg cap ORAL SCH (08:15)
[2018-01-17] MEDS: Heparin 5000 units/ml inj SUBQ SCH ×2 (08:18→21:00)
--- NOTE | 2018-01-17 11:22 | Infectious Diseases Prog Note ---
Assessment/Plan Assessment/Plan antibiotics : meropenem A 1. e.coli esbl UTI s/p rx 2. renal failure improving 3. diabetes mellitus 4. hypertension P 1. d/c meropenem 2. observe off antibiotics Subjective ROS Limited/Unobtainable: Yes Allergies: Coded Allergies: PENICILLINS (Verified Allergy, Unknown, 01/10/18) Objective Vital Signs Last 24 Hour Vital Signs Date Time Temp Pulse Resp B/P (MAP) Pulse Ox O2 Delivery O2 Flow Rate FiO2 01/17/18 08:15 90 154/90 01/17/18 08:09 97.3 90 19 154/90 (111) 94 97.3 01/17/18 04:00 97.8 79 16 129/77 (94) 93 97.8 01/17/18 00:00 97.7 73 17 148/76 (100) 96 97.7 01/16/18 23:54 Room Air 01/16/18 20:00 97.7 79 17 143/75 (97) 96 97.7 01/16/18 16:00 97.9 73 20 140/77 (98) 100 97.9 01/16/18 12:00 98.1 85 20 134/65 (88) 98 98.1 Height (Feet): 5 Height (Inches): 2.00 Weight (Pounds): 156 Respiratory/Chest: lungs clear Cardiovascular: normal rate, regular rhythm, no gallop/murmur Abdomen: soft, non tender Extremities: no edema Current Medications Medications (Trade) Dose Ordered Sig/Venessa Route PRN Reason Start Time Stop Time Status Last Admin Dose Admin Acetaminophen (Tylenol) 650 mg Q4H PRN ORAL Mild Pain/Temp > 100.5 01/09/18 21:15 02/08/18 21:14 01/15/18 21:32 Amlodipine Besylate (Norvasc) 10 mg DAILY ORAL 01/10/18 09:00 02/09/18 08:59 01/17/18 08:15 Dextrose (Dextrose 50%) 25 ml Q30M PRN IV Hypoglycemia 01/09/18 21:15 02/08/18 21:14 Dextrose (Dextrose 50%) 50 ml Q30M PRN IV Hypoglycemia 01/09/18 21:15 02/08/18 21:14 Docusate Sodium (Colace) 250 mg DAILY ORAL 01/16/18 09:00 11/10/18 08:59 01/17/18 08:15 Finasteride (Proscar) 5 mg DAILY ORAL 01/10/18 09:00 02/09/18 08:59 01/17/18 08:16 Glipizide (Glucotrol) 5 mg BIAC ORAL 01/14/18 06:30 02/13/18 06:29 01/17/18 06:14 Heparin Sodium (Porcine) (Heparin 5000 units/ml) 5,000 units EVERY 12 HOURS SUBQ 01/10/18 09:00 02/09/18 08:59 01/17/18 08:18 Insulin Aspart (NovoLOG) BEFORE MEALS AND HS SUBQ 01/10/18 06:30 02/09/18 06:29 01/17/18 06:15 Magnesium Hydroxide (Mom) 30 ml HSPRN PRN ORAL Constipation 01/15/18 18:45 02/14/18 18:44 Meropenem 500 mg/ Sodium Chloride 55 ml @ 110 mls/hr Q12H IVPB 01/12/18 20:00 01/17/18 19:59 01/17/18 08:15 Ondansetron HCl (Zofran) 4 mg Q6H PRN IVP Nausea & Vomiting 01/09/18 21:15 02/08/18 21:14 Pantoprazole (Protonix) 40 mg DAILY ORAL 01/10/18 09:00 02/09/18 08:59 01/17/18 08:16 Sodium Chloride 1,000 ml @ 75 mls/hr [id number] IV 01/11/18 01:30 02/10/18 01:29 01/17/18 04:04 Tamsulosin HCl (Flomax) 0.4 mg BEDTIME ORAL 01/10/18 21:00 02/09/18 20:59 01/16/18 21:16 Alhaji Duffy MD Jan 17, 2018 11:22
[2018-01-17 12:00] VITALS: BP 140/76
[2018-01-17 16:00] VITALS: BP 150/78
[2018-01-17] MEDS: Tamsulosin 0.4mg cap ORAL SCH (21:00)
--- NOTE | 2018-01-18 02:15 | Progress Note ---
DATE: 01/15/2018 INTERNAL MEDICINE PROGRESS NOTE SUBJECTIVE: The case was discussed with the Infectious Disease senior erp consultant. Recommendations for an additional 2 days of intravenous antibiotics for multidrug-resistant E. coli pathogen. The patient has no chest pain, abdominal pain, or shortness of breath. OBJECTIVE: VITAL SIGNS: Blood pressure 154/75, pulse 69, respiratory rate 19. LUNGS: Clear. CARDIAC: Regular. ABDOMEN: Soft. EXTREMITIES: No edema. IMPRESSION: Improved. PLAN: 1. Continue hydration. 2. Monitor cardiorenal parameters. 3. Titrate diabetic and antihypertensive drugs. 4. Complete IV antibiotics for E. coli infection as noted. Sean Merchant M.D. DR: Paz JOB#: [id number] CC:
--- NOTE | 2018-01-18 03:15 | Progress Note ---
DATE: 01/16/2018 INTERNAL MEDICINE PROGRESS NOTE SUBJECTIVE: No new complaints. Vitals are stable. Afebrile. Voiding well with no catheter in place. OBJECTIVE: LUNGS: Clear. ABDOMEN: Soft and nontender CARDIAC: Regular with no new murmur. EXTREMITIES: No edema. IMPRESSION: Continued progress. PLAN: 1. Complete antibiotics tomorrow with discharge plan anticipated. 2. Outpatient monitoring of cardiorenal parameters. 3. Diabetic regimen. Sean Merchant M.D. DR: JACK JOB#: [id number] CC:
--- NOTE | 2018-01-19 11:02 | Discharge Summary ---
Discharge Summary Discharge Summary _ DATE OF ADMISSION: 01/09/2018 DATE OF DISCHARGE: 01/17/2018 REASON FOR ADMISSION: 82 years old male with past medical history of hypertension, BPH, chronic kidney disease stage IV, bilateral hearing loss, insulin-dependent diabetes mellitus , presented from home with few complaints. Patient reported dysuria 5 out of 10 on a scale 1-10, but denied fever, chills , nausea, vomiting, and abdominal pain. Patient reported scratch by the dog to right forearm few days ago. No bleeding. Patient also reported not being on insulin for the past few days and high blood sugar readings at home. Patient denied chest pain or shortness of breath. Upon evaluation vital signs revealed elevated blood pressure 163/90. Laboratory workup revealed no leukocytosis, stable hemoglobin and hematocrit. BUN 67, creatinine 4.5. Glucose 532, normal anion gap and bicarbonate. Potassium within normal limits. Urinalysis with evidence of UTI. Patient received T dap vaccine in ED and started on empiric antibiotic for UTI. Pyridium provided for comfort. Patient admitted with diagnoses of possible sepsis, dog scratch and cellulitis right shoulder, hyperglycemia associated with insulin dependent diabetes mellitus, urinary tract infection , acute on chronic renal failure , BPH, hypertension. CONSULTANTS: ID specialist Dr. Duffy [facility] COURSE: Patient admitted and started on cautious hydration and empiric antibiotics. Infectious disease specialist followed. Urine culture revealed Escherichia coli ESBL . Antibiotic regimen optimized and completed prior to discharge. Topical wound care provided with Bacitracin ointment .Wound improved with treatment. No fevers,no chills, no leukocytosis. Infectious disease recommended to observe patient off antibiotics. Postvoid residual revealed significant amount of urine. Subsequently Huerta catheter was placed. Renal parameters and electrolytes were closely monitored. Electrolytes were corrected as needed. Nephrotoxins were avoided. Renal ultrasound revealed normal kidney echogenicity bilaterally. No hydronephrosis on the left. Right kidney demonstrated equivocal minimal renal collecting system fullness, prominent extrarenal pelvis and proximal mild hydroureter. No hydronephrosis on the left. Bladder empty containing Huerta catheter. As patient clinically improved , Huerta catheter was discontinued. Patient started on Flomax and Proscar. PSA was within normal limits. Patient was able to void . BUN down to 32, creatinine down to 3.1. renal parameters down to baseline/ chronic kidney disease stage 4. Acute renal failure was likely precipitated by infection. Blood sugar was managed with glipizide and sliding scale of insulin as needed. Hemoglobin A1c -9.8, not at goal. Patient will need further optimization of anti- glycemic regimen as outpatient. Blood pressure was managed with calcium channel whitney and remained stable. Volumes and cardiorenal parameters closely monitored. Bowel regimen instituted. Dietary supplement implemented in plan of care. Patient clinically improved and was stable for discharge home . FINAL DIAGNOSES: Possible sepsis Escherichia coli ESBL urinary tract infection, status post treatment Dog scratch and cellulitis right forearm Hyperglycemia associated with insulin-dependent diabetes mellitus, uncontrolled Acute on chronic renal failure Hypertension Moderate protein calorie malnutrition Chronic diastolic congestive heart failure BPH with a history of urinary retention DISCHARGE MEDICATIONS: See Medication Reconciliation list. DISCHARGE INSTRUCTIONS: Patient was discharged home Follow up with primary care provider in one week. Patient was counseled on adherence with medication regimen I have been assigned to dictate discharge summary for this account. I was not involved in the patient's management. Nancy Bazan NP Jan 19, 2018 11:02
== END 2018-01-17 22:00 | disposition home or self-care (01) | DRG 720 ==
LOC: EMR 15:33 → EDBEDREQ 17:56 → 4E 18:50 → EDBEDREQ 19:24
DX: A41.9 Sepsis, unspecified organism (principal); N17.9 Acute kidney failure, unspecified; E44.0 Moderate protein-calorie malnutrition; E11.22 Type 2 diabetes mellitus with diabetic chronic kidney disease; N39.0 Urinary tract infection, site not specified; I13.0 Hypertensive heart and chronic kidney disease with heart failure and stage 1 through stage 4 chronic kidney disease, or unspecified chronic kidney disease; I50.32 Chronic diastolic (congestive) heart failure; E11.65 Type 2 diabetes mellitus with hyperglycemia; B96.20 Unspecified Escherichia coli [E. coli] as the cause of diseases classified elsewhere; Z16.12 Extended spectrum beta lactamase (ESBL) resistance; N18.9 Chronic kidney disease, unspecified; Z79.4 Long term (current) use of insulin; N40.1 Benign prostatic hyperplasia with lower urinary tract symptoms; R33.8 Other retention of urine; Z91.14 Patient's other noncompliance with medication regimen; Z23 Encounter for immunization; S50.811A Abrasion of right forearm, initial encounter; L03.113 Cellulitis of right upper limb; W54.8XXA Other contact with dog, initial encounter; Y92.009 Unspecified place in unspecified non-institutional (private) residence as the place of occurrence of the external cause; H91.93 Unspecified hearing loss, bilateral; Z88.0 Allergy status to penicillin; E03.9 Hypothyroidism, unspecified; E86.1 Hypovolemia; E86.0 Dehydration
CPT/HCPCS: 36415; 76770; 80048; 80053; 81003; 82009; 82962; 83036; 83735; 83880; 84153; 84443; 84550; 85007; 85025; 87086; 87181; 90471; 90715; 93005; 96361; 96365; 96375; 96376; 99285; J1815; J8499

== ENCOUNTER 2018-02-16 12:42 | Inpatient (IN) | payer MEDICAID ==
[~2018-02-16] VITALS: Ht 167.6 cm; Wt 67.8 kg
[~2018-02-16 12:42] MED LIST changes: +AMLODIPINE BESY10 MG ORAL; +FUROSEMIDE40 MG ORAL; +HYDRALAZINE HCL50 MG ORAL; +IBUPROFEN600 MG ORAL; +PROSCAR5 MG ORAL
[2018-02-16 12:54] VITALS: BP 152/84
--- NOTE | 2018-02-16 12:54 | Emergency Room Report ---
History of Present Illness General Chief Complaint: Abnormal Labs Source: Family Member Present Illness HPI Patient was recently in the hospital and dispositioned This is the patient's note from recent discharge >>>>82 years old male with past medical history of hypertension, BPH, chronic kidney disease stage IV, bilateral hearing loss, insulin-dependent diabetes mellitus , presented from home with few complaints. Patient reported dysuria 5 out of 10 on a scale 1-10, but denied fever, chills , nausea, vomiting, and abdominal pain. Patient reported scratch by the dog to right forearm few days ago. No bleeding. Patient also reported not being on insulin for the past few days and high blood sugar readings at home. Patient denied chest pain or shortness of breath. Upon evaluation vital signs revealed elevated blood pressure 163/90. Laboratory workup revealed no leukocytosis, stable hemoglobin and hematocrit. BUN 67, creatinine 4.5. Glucose 532, normal anion gap and bicarbonate. Potassium within normal limits. Urinalysis with evidence of UTI. Patient received T dap vaccine in ED and started on empiric antibiotic for UTI. Pyridium provided for comfort. Patient admitted with diagnoses of possible sepsis, dog scratch and cellulitis right shoulder, hyperglycemia associated with insulin dependent diabetes mellitus, urinary tract infection , acute on chronic renal failure , BPH, hypertension.<<< < Currently the history is obtained essentially from the patient's son, he reports that the patient was previously in a intermediate for approximately 5 years, after recent hospitalization patient has been out home however over the past several days has been acting weaker than usual more lethargic, essentially fairly similar to the reason why he came to the hospital recently There was no reports of any obvious fever Patient's Accu-Chek upon arrival was elevated however the patient does not have any obvious history of diabetes and the son reports that the patient does not take any diabetic medication Allergies: Coded Allergies: PENICILLINS (Verified Allergy, Unknown, 01/10/18) Patient History Limited by: medical condition Pertinent Family History: none Reviewed Nursing Documentation: PMH: Agreed; PSxH: Agreed Nursing Documentation-PM Past Medical History: No History, Except For Hx Hypertension: Yes Hx Diabetes: Yes - CKD STAGE 4 Hx Cancer: No Hx Cerebrovascular Accident: No - BPH Hx Dementia: Yes Review of Systems All Other Systems: limited - Other than the ones mentioned in the history of present illness all others are reviewed however they do stay limited due to the patient's mental status Physical Exam Vital Signs Date Time Temp Pulse Resp B/P (MAP) Pulse Ox O2 Delivery O2 Flow Rate FiO2 02/16/18 12:44 97.5 106 18 113/75 95 Room Air Sp02 EP Interpretation: reviewed, normal General Appearance: no apparent distress Head: normocephalic, atraumatic Eyes: bilateral eye PERRL, bilateral eye EOMI ENT: dry mucus membranes Neck: full range of motion, supple Respiratory: lungs clear, normal breath sounds Cardiovascular #1: regular rate, rhythm Gastrointestinal: non tender, soft Genitourinary: no CVA tenderness Musculoskeletal: other - No obvious focal deficit Neurologic: alert, responsive Skin: normal color, no rash Lymphatic: no adenopathy Medical Decision Making Diagnostic Impression: Primary Impression: Acute encephalopathy Additional Impressions: Hyperglycemia Dehydration ER Course Patient is a fairly complex patient with multiple differential to consideration including but not limited to cardiac cardiopulmonary and vascular emergencies Patient's Accu-Chek is also reading elevated patient initiated on IV hydration Patient shows significant abnormalities including glucose in the 900 range No obvious acidosis and does not appear to be in acute DKA however patient also shows signs of UTI IV hydration, insulin and antibiotics and provided patient requiring admission to monitored bed Labs Test 02/16/18 13:10 02/16/18 13:20 White Blood Count 9.9 K/UL (4.8-10.8) Red Blood Count 5.93 M/UL (4.70-6.10) Hemoglobin 17.0 G/DL (14.2-18.0) Hematocrit 52.5 % (42.0-52.0) Mean Corpuscular Volume 88 FL (80-99) Mean Corpuscular Hemoglobin 28.8 PG (27.0-31.0) Mean Corpuscular Hemoglobin Concent 32.5 G/DL (32.0-36.0) Red Cell Distribution Width 11.1 % (11.6-14.8) Platelet Count 285 K/UL (150-450) Mean Platelet Volume 10.7 FL (6.5-10.1) Neutrophils (%) (Auto) 73.9 % (45.0-75.0) Lymphocytes (%) (Auto) 15.7 % (20.0-45.0) Monocytes (%) (Auto) 7.7 % (1.0-10.0) Eosinophils (%) (Auto) 2.0 % (0.0-3.0) Basophils (%) (Auto) 0.8 % (0.0-2.0) Sodium Level 131 MMOL/L (136-145) Potassium Level 4.5 MMOL/L (3.5-5.1) Chloride Level 89 MMOL/L (98-107) Carbon Dioxide Level 23 MMOL/L (21-32) Anion Gap 19 mmol/L (5-15) Blood Urea Nitrogen 93 mg/dL (7-18) Creatinine 4.9 MG/DL (0.55-1.30) Estimat Glomerular Filtration Rate mL/min (>60) Glucose Level 989 MG/DL (74-106) Calcium Level 9.9 MG/DL (8.5-10.1) Total Bilirubin 0.7 MG/DL (0.2-1.0) Aspartate Amino Transf (AST/SGOT) 8 U/L (15-37) Alanine Aminotransferase (ALT/SGPT) 6 U/L (12-78) Alkaline Phosphatase 139 U/L (46-116) Total Creatine Kinase 63 U/L (26-308) Creatine Kinase MB 1.3 NG/ML (0.0-3.6) Creatine Kinase MB Relative Index 2.0 Troponin I 0.004 ng/mL (0.000-0.056) Pro-B-Type Natriuretic Peptide 841 pg/mL (0-125) Total Protein 10.2 G/DL (6.4-8.2) Albumin 3.8 G/DL (3.4-5.0) Globulin 6.4 g/dL Albumin/Globulin Ratio 0.6 (1.0-2.7) Lipase 242 U/L (73-393) Urine Color Pale yellow Urine Appearance Clear Urine pH 5 (4.5-8.0) Urine Specific Cyrus 1.010 (1.005-1.035) Urine Protein 3+ (NEGATIVE) Urine Glucose (UA) 4+ (NEGATIVE) Urine Ketones 1+ (NEGATIVE) Urine Blood 4+ (NEGATIVE) Urine Nitrite Positive (NEGATIVE) Urine Bilirubin Negative (NEGATIVE) Urine Urobilinogen Normal MG/DL (0.0-1.0) Urine Leukocyte Esterase 3+ (NEGATIVE) Urine RBC 2-4 /HPF (0 - 0) Urine WBC 10-15 /HPF (0 - 0) Urine Squamous Epithelial Cells Few /LPF (NONE/OCC) Urine Bacteria Moderate /HPF (NONE) Rhythm Strip Diag. Results EP Interpretation: yes Rate: 88 Rhythm: NSR, no PVC's, no ectopy Chest X-Ray Diagnostic Results Chest X-Ray Diagnostic Results : Chest X-Ray Ordered: Yes # of Views/Limited/Complete: 1 View Indication: Chest Pain EP Interpretation: Yes Interpretation: no consolidation, no effusion, no pneumothorax Impression: No acute disease Electronically Signed by: Aileen Ulloa DO Last Vital Signs Date Time Temp Pulse Resp B/P (MAP) Pulse Ox O2 Delivery O2 Flow Rate FiO2 02/16/18 12:44 97.5 106 18 113/75 95 Room Air Status: improved Disposition: ADMITTED INPATIENT Condition: Critical Aileen Ulloa DO Feb 16, 2018 12:54
[2018-02-16 13:30] LABS: BASOPHILS % (AUTO) 0.8 % (0.0-2.0); HEMATOCRIT 52.5 % (42.0-52.0); LYMPHOCYTES % (AUTO) 15.7 % (20.0-45.0); MEAN CORPUSCULAR VOLUME 88 FL (80-99); MONOCYTES % (AUTO) 7.7 % (1.0-10.0); NEUTROPHILS % (AUTO) 73.9 % (45.0-75.0); PLATELET COUNT 285 K/UL (150-450); RED BLOOD COUNT 5.93 M/UL (4.70-6.10); RED CELL DISTRIBUTION WIDTH 11.1 % (11.6-14.8); WHITE BLOOD COUNT 9.9 K/UL (4.8-10.8)
[2018-02-16 13:42] LABS: APPEARANCE,URINE CLEAR; BILIRUBIN, URINE NEGATIVE (NEGATIVE); COLOR,URINE PALE YELLOW; GLUCOSE, URINE (UA) 4+ (NEGATIVE); KETONES,URINE 1+ (NEGATIVE); LEUKOCYTE ESTERASE ,URINE 3+ (NEGATIVE); NITRITE,URINE POSITIVE (NEGATIVE); PH,URINE 5 (4.5-8.0); PROTEIN,URINE 3+ (NEGATIVE); UROBILINOGEN,URINE NORMAL MG/DL (0.0-1.0)
[2018-02-16 13:59] LABS: ALANINE AMINOTRANSFERASE 6 U/L (12-78); ALBUMIN 3.8 G/DL (3.4-5.0); ALBUMIN/GLOBULIN RATIO 0.6 (1.0-2.7); ALKALINE PHOSPHATASE 139 U/L (46-116); ANION GAP 19 mmol/L (5-15); ASPARTATE AMINO TRANSFERASE 8 U/L (15-37); BILIRUBIN,TOTAL 0.7 MG/DL (0.2-1.0); BLOOD UREA NITROGEN 93 mg/dL (7-18); CALCIUM 9.9 MG/DL (8.5-10.1); CARBON DIOXIDE 23 MMOL/L (21-32); CHLORIDE 89 MMOL/L (98-107); CKMB 1.3 NG/ML (0.0-3.6); CREATINE KINASE 63 U/L (26-308); CREATININE 4.9 MG/DL (0.55-1.30); POTASSIUM 4.5 MMOL/L (3.5-5.1); SODIUM 131 MMOL/L (136-145)
[2018-02-16] MEDS ORDERED: Clindamycin 600mg 50 ML IVPB ONE (14:00)
[2018-02-16] MEDS ORDERED: Insulin Human Regular 100units/ml 3ml IV ONE ×2 (14:00→14:15)
[2018-02-16] MEDS ORDERED: Miralax 17gm pkt ORAL PRN (14:30)
[2018-02-16] MEDS ORDERED: Morphine Sulfate 2mg/ml Inj IVP PRN (14:30)
[2018-02-16] MEDS ORDERED: Albuterol/Ipratropium 3ml neb HHN PRN (14:30)
[2018-02-16] MEDS ORDERED: Nitroglycerin Subl 0.4mg tab SL PRN (14:30)
[2018-02-16 15:00] VITALS: BP 146/82
[2018-02-16] MEDS ORDERED: Vancomycin 1250mg/D5W 250ml IVPB SCH (16:00)
[2018-02-16 16:22] VITALS: BP 125/80
[2018-02-16 16:30] VITALS: BP 139/84
[2018-02-16] MEDS ORDERED: NovoLOG Insulin Flexpen SUBQ SCH (16:30)
[2018-02-16 20:00] VITALS: BP 135/76
[2018-02-16] MEDS: Heparin 5000 units/ml inj SUBQ SCH (20:57)
[2018-02-16] MEDS ORDERED: Tamsulosin 0.4mg cap ORAL SCH (21:00)
[2018-02-16] MEDS ORDERED: Cefepime HCl 2 GM in D5W 110 ML IV SCH (21:00)
[2018-02-16] MEDS: NovoLOG Insulin Flexpen SUBQ SCH (21:15)
[2018-02-17] VITALS: BP 113/71
[2018-02-17] MEDS ORDERED: Vancomycin 1 GM in D5W 275 ML IV SCH (00:30)
[2018-02-17 01:54] LABS: BILIRUBIN, URINE NEGATIVE (NEGATIVE); COLOR,URINE PALE YELLOW; GLUCOSE, URINE (UA) 4+ (NEGATIVE); KETONES,URINE NEGATIVE (NEGATIVE); LEUKOCYTE ESTERASE ,URINE 3+ (NEGATIVE); NITRITE,URINE POSITIVE (NEGATIVE); PH,URINE 5 (4.5-8.0); PROTEIN,URINE 3+ (NEGATIVE); UROBILINOGEN,URINE NORMAL MG/DL (0.0-1.0)
[2018-02-17 02:03] LABS: APPEARANCE,URINE SLIGHTLY CLOUDY
[2018-02-17 04:00] VITALS: BP 140/77
[2018-02-17] MEDS: NovoLOG Insulin Flexpen SUBQ SCH ×9 (06:21→22:47)
[2018-02-17 07:02] LABS: BASOPHILS % (AUTO) 0.9 % (0.0-2.0); EOSINOPHILS % (AUTO) 4.2 % (0.0-3.0); HEMATOCRIT 46.9 % (42.0-52.0); HEMOGLOBIN 16.3 G/DL (14.2-18.0); LYMPHOCYTES % (AUTO) 19.3 % (20.0-45.0); MEAN CORPUSCULAR VOLUME 86 FL (80-99); MONOCYTES % (AUTO) 6.1 % (1.0-10.0); NEUTROPHILS % (AUTO) 69.5 % (45.0-75.0); PLATELET COUNT 242 K/UL (150-450); RED BLOOD COUNT 5.46 M/UL (4.70-6.10); RED CELL DISTRIBUTION WIDTH 10.9 % (11.6-14.8); WHITE BLOOD COUNT 11.4 K/UL (4.8-10.8)
[2018-02-17 07:14] LABS: ALANINE AMINOTRANSFERASE 14 U/L (12-78); ALBUMIN 3.3 G/DL (3.4-5.0); ALBUMIN/GLOBULIN RATIO 0.5 (1.0-2.7); ALKALINE PHOSPHATASE 110 U/L (46-116); ANION GAP 15 mmol/L (5-15); ASPARTATE AMINO TRANSFERASE 13 U/L (15-37); BILIRUBIN,TOTAL 0.8 MG/DL (0.2-1.0); BLOOD UREA NITROGEN 83 mg/dL (7-18); CALCIUM 9.8 MG/DL (8.5-10.1); CARBON DIOXIDE 24 MMOL/L (21-32); CHLORIDE 101 MMOL/L (98-107); CREATININE 4.3 MG/DL (0.55-1.30); POTASSIUM 4.5 MMOL/L (3.5-5.1); SODIUM 140 MMOL/L (136-145)
[2018-02-17 08:00] VITALS: BP 143/75
[2018-02-17] MEDS: Heparin 5000 units/ml inj SUBQ SCH ×2 (08:32→22:46)
[2018-02-17] MEDS ORDERED: Levemir Flexpen SUBQ SCH (09:00)
--- NOTE | 2018-02-17 09:20 | Diagnostic Imaging Report ---
Indication: Chest pain Technique: One view of the chest Comparison: none Findings: The lungs and pleural spaces are clear. The heart is upper limits normal in size. The aorta is elongated tortuous and calcified. Impression: No acute process
[2018-02-17 12:00] VITALS: BP 114/70
--- NOTE | 2018-02-17 13:24 | Consultation ---
History of Present Illness General Date patient seen: Feb 17, 2018 Chief Complaint: Abnormal Labs Present Illness HPI 82 years old male with past medical history of hypertension, BPH, chronic kidney disease stage IV, bilateral hearing loss, insulin-dependent diabetes mellitus brought in by ambulance because over the past several days has been acting weaker than usual more lethargic His Glucose level was critically high and he is admitted for further evaluation. Allergies: Coded Allergies: PENICILLINS (Verified Allergy, Unknown, 01/10/18) Medication History Scheduled Amlodipine Besylate* (Amlodipine Besylate*), 10 MG ORAL DAILY, (Reported) Finasteride* (Proscar*), 5 MG ORAL DAILY, (Reported) Furosemide* (Lasix*), 40 MG ORAL DAILY, (Reported) Tamsulosin Hcl (Tamsulosin Hcl*), 0.4 MG ORAL BEDTIME, (Reported) Scheduled PRN Hydralazine Hcl* (Hydralazine Hcl*), 100 MG ORAL Q6HR PRN for Itching, (Reported ) Ibuprofen* (Motrin*), 600 MG ORAL Q6H PRN for For Pain, (Reported) Patient History Healthcare decision maker Resuscitation status Advanced Directive on File Past Medical/Surgical History Past Medical/Surgical History: (1) Stage 4 chronic kidney disease (2) Diabetes mellitus Review of Systems All Other Systems: negative except mentioned in HPI Physical Exam General Appearance: cachetic Lines, tubes and drains: peripheral HEENT: normocephalic Neck: non-tender, normal alignment Respiratory/Chest: chest wall non-tender, lungs clear Cardiovascular/Chest: normal peripheral pulses, normal rate Abdomen: normal bowel sounds Genitourinary/Rectal: normal genital exam Last 24 Hour Vital Signs Date Time Temp Pulse Resp B/P (MAP) Pulse Ox O2 Delivery O2 Flow Rate FiO2 02/17/18 09:00 Room Air 02/17/18 08:32 108 143/75 02/17/18 08:00 97.8 108 20 143/75 (97) 96 02/17/18 08:00 107 02/17/18 04:00 98.0 96 20 140/77 (98) 97 02/17/18 04:00 99 02/17/18 00:00 97.0 94 20 113/71 (85) 96 02/17/18 00:00 97 02/16/18 21:00 Room Air 02/16/18 20:00 91 02/16/18 20:00 97.3 66 20 135/76 (95) 96 02/16/18 17:11 Room Air 02/16/18 16:30 98.6 90 18 139/84 (102) 96 02/16/18 16:22 97.8 93 22 125/80 100 Room Air 02/16/18 16:22 97.8 93 22 125/80 100 Room Air 02/16/18 15:00 99 25 146/82 100 Room Air Intake and Output 02/16/18 02/17/18 18:59 06:59 Intake Total 2000 ml 450 ml Balance 2000 ml 450 ml Intake IV Total 2000 ml Other 450 ml # Voids 1 2 # Bowel Movements 1 Laboratory Tests Test 02/16/18 13:20 02/16/18 14:33 02/16/18 17:00 02/17/18 05:30 Urine Color Pale yellow Urine Appearance Clear Urine pH 5 (4.5-8.0) Urine Specific [place] 1.010 (1.005-1.035) Urine Protein 3+ (NEGATIVE) H Urine Glucose (UA) 4+ (NEGATIVE) H Urine Ketones 1+ (NEGATIVE) H Urine Blood 4+ (NEGATIVE) H Urine Nitrite Positive (NEGATIVE) H Urine Bilirubin Negative (NEGATIVE) Urine Urobilinogen Normal MG/DL (0.0-1.0) Urine Leukocyte Esterase 3+ (NEGATIVE) H Urine RBC 2-4 /HPF (0 - 0) H Urine WBC 10-15 /HPF (0 - 0) H Urine Squamous Epithelial Cells Few /LPF (NONE/OCC) Urine Bacteria Moderate /HPF (NONE) H Lactic Acid Level 2.60 mmol/L (0.66-2.22) H Glucose Level 545 MG/DL (74-106) #*H 248 MG/DL (74-106) #H White Blood Count 11.4 K/UL (4.8-10.8) H Red Blood Count 5.46 M/UL (4.70-6.10) Hemoglobin 16.3 G/DL (14.2-18.0) Hematocrit 46.9 % (42.0-52.0) Mean Corpuscular Volume 86 FL (80-99) Mean Corpuscular Hemoglobin 29.8 PG (27.0-31.0) Mean Corpuscular Hemoglobin Concent 34.8 G/DL (32.0-36.0) Red Cell Distribution Width 10.9 % (11.6-14.8) L Platelet Count 242 K/UL (150-450) Mean Platelet Volume 10.8 FL (6.5-10.1) H Neutrophils (%) (Auto) 69.5 % (45.0-75.0) Lymphocytes (%) (Auto) 19.3 % (20.0-45.0) L Monocytes (%) (Auto) 6.1 % (1.0-10.0) Eosinophils (%) (Auto) 4.2 % (0.0-3.0) H Basophils (%) (Auto) 0.9 % (0.0-2.0) Sodium Level 140 MMOL/L (136-145) Potassium Level 4.5 MMOL/L (3.5-5.1) Chloride Level 101 MMOL/L (98-107) Carbon Dioxide Level 24 MMOL/L (21-32) Anion Gap 15 mmol/L (5-15) Blood Urea Nitrogen 83 mg/dL (7-18) H Creatinine 4.3 MG/DL (0.55-1.30) H Estimat Glomerular Filtration Rate mL/min (>60) Calcium Level 9.8 MG/DL (8.5-10.1) Total Bilirubin 0.8 MG/DL (0.2-1.0) Aspartate Amino Transf (AST/SGOT) 13 U/L (15-37) L Alanine Aminotransferase (ALT/SGPT) 14 U/L (12-78) Alkaline Phosphatase 110 U/L (46-116) Total Protein 9.4 G/DL (6.4-8.2) H Albumin 3.3 G/DL (3.4-5.0) L Globulin 6.1 g/dL Albumin/Globulin Ratio 0.5 (1.0-2.7) L Microbiology Date/Time Source Procedure Growth Status 02/16/18 13:20 Urine,Clean Catch Urine Culture - Preliminary Gram Negative Bacillus 1 Resulted Height (Feet): 5 Height (Inches): 6.00 Weight (Pounds): 150 Medications Current Medications Medications (Trade) Dose Ordered Sig/Venessa Route PRN Reason Start Time Stop Time Status Last Admin Dose Admin Acetaminophen (Tylenol) 650 mg Q4H PRN ORAL fever 02/16/18 14:30 03/18/18 14:29 Albuterol/ Ipratropium (Albuterol/ Ipratropium) 3 ml Q4H PRN HHN Shortness of Breath 02/16/18 14:30 02/21/18 14:29 Amlodipine Besylate (Norvasc) 10 mg DAILY ORAL 02/17/18 09:00 03/19/18 08:59 02/17/18 08:32 Dextrose (Dextrose 50%) 25 ml Q30M PRN IV Hypoglycemia 02/17/18 07:00 03/19/18 06:59 Dextrose (Dextrose 50%) 50 ml Q30M PRN IV Hypoglycemia 02/17/18 07:00 03/19/18 06:59 Finasteride (Proscar) 5 mg DAILY ORAL 02/17/18 09:00 03/19/18 08:59 02/17/18 08:32 Heparin Sodium (Porcine) (Heparin 5000 units/ml) 5,000 units EVERY 12 HOURS SUBQ 02/16/18 21:00 03/18/18 20:59 02/17/18 08:32 Insulin Aspart (NovoLOG) BEFORE MEALS AND HS SUBQ 02/16/18 21:00 03/18/18 16:29 02/17/18 12:10 Insulin Aspart (NovoLOG) 5 units NOVOTIAC SUBQ 02/17/18 08:00 03/19/18 07:59 02/17/18 12:09 Insulin Detemir (Levemir) 15 units DAILY SUBQ 02/17/18 09:00 03/19/18 08:59 02/17/18 09:25 Morphine Sulfate (Morphine Sulfate) 2 mg Q4H PRN IVP Moderate Pain (Pain Scale 4-6) 02/16/18 14:30 02/23/18 14:29 Nitroglycerin (Ntg) 0.4 mg Q5M PRN SL Prn Chest Pain 02/16/18 14:30 03/18/18 14:29 Ondansetron HCl (Zofran) 4 mg Q6H PRN IVP Nausea & Vomiting 02/16/18 14:30 03/18/18 14:29 Polyethylene Glycol (Miralax) 17 gm DAILYPRN PRN ORAL Constipation 02/16/18 14:30 03/18/18 14:29 Tamsulosin HCl (Flomax) 0.4 mg BEDTIME ORAL 02/16/18 21:00 03/18/18 20:59 02/16/18 20:56 Temazepam (Restoril) 15 mg HSPRN PRN ORAL Insomnia 02/16/18 14:30 02/23/18 14:29 Vancomycin HCl (Vanco rx to dose) 1 ea DAILY PRN MISC per rx protocol 02/16/18 15:45 03/18/18 15:44 Assessment/Plan Problem List: (1) Hyperglycemia ICD Codes: R73.9 - Hyperglycemia, unspecified SNOMED: 11660048 (2) Acute encephalopathy ICD Codes: G93.40 - Encephalopathy, unspecified SNOMED: 2670925 (3) Stage 4 chronic kidney disease ICD Codes: N18.4 - Chronic kidney disease, stage 4 (severe) SNOMED: 342520395 (4) Diabetes mellitus ICD Codes: E11.9 - Type 2 diabetes mellitus without complications SNOMED: 79583401 (5) mild vascular dementia Assessment/Plan iv fluids sliding scale Renal evaluation diabetic diet Joyce Winters MD Feb 17, 2018 13:24
[2018-02-17 13:38] LABS: CREATINE KINASE 77 U/L (26-308)
[2018-02-17] MEDS ORDERED: Tamsulosin 0.4mg cap ORAL SCH (15:04)
--- NOTE | 2018-02-17 15:09 | Consultation ---
Consult Note Consult Note ID DIC # [id number] Deshaun Cheung MD Feb 17, 2018 15:09
--- NOTE | 2018-02-17 15:13 | Consultation ---
Consult Note Consult Note asked to eval for renal failure- 82 years old male with past medical history of hypertension, BPH, chronic kidney disease stage IV, bilateral hearing loss, insulin-dependent diabetes mellitus , presented from home with few complaints. Patient reported dysuria 5 out of 10 on a scale 1-10, but denied fever, chills , nausea, vomiting, and abdominal pain. Patient reported scratch by the dog to right forearm few days ago. No bleeding. Patient also reported not being on insulin for the past few days and high blood sugar readings at home. Patient denied chest pain or shortness of breath. Upon evaluation vital signs revealed elevated blood pressure 163/90. Laboratory workup revealed no leukocytosis, stable hemoglobin and hematocrit. BUN 67, creatinine 4.5. Glucose 532, normal anion gap and bicarbonate. Potassium within normal limits. Urinalysis with evidence of UTI. Patient received T dap vaccine in ED and started on empiric antibiotic for UTI. Pyridium provided for comfort. Patient admitted with diagnoses of possible sepsis, dog scratch and cellulitis right shoulder, hyperglycemia associated with insulin dependent diabetes mellitus, urinary tract infection , acute on chronic renal failure , BPH, hypertension examined- hard of hearing data reviewed . Assessment/Plan Acute on Chronic Renal failure- Hyperglycemia HyperUrecemia UTI Proteinuria and HypoAlbuminemia Flomax Fluid Challenge BS control Monitor renal parameters 2D Echo Kidney HIEN per orders Guilherme Ernandez MD Feb 17, 2018 15:13
[2018-02-17] MEDS ORDERED: Meropenem 1 GM in NS 55 ML IVPB SCH (15:15)
[2018-02-17] MEDS ORDERED: Allopurinol 100mg Tab ORAL SCH (15:19)
[2018-02-17 15:35] LABS: APPEARANCE,URINE SLIGHTLY CLOUDY; BILIRUBIN, URINE NEGATIVE (NEGATIVE); COLOR,URINE PALE YELLOW; GLUCOSE, URINE (UA) 3+ (NEGATIVE); KETONES,URINE 1+ (NEGATIVE); LEUKOCYTE ESTERASE ,URINE 3+ (NEGATIVE); NITRITE,URINE POSITIVE (NEGATIVE); PH,URINE 5 (4.5-8.0); PROTEIN,URINE 3+ (NEGATIVE); UROBILINOGEN,URINE NORMAL MG/DL (0.0-1.0)
[2018-02-17 16:00] VITALS: BP 127/69
[2018-02-17] MEDS ORDERED: Albuterol/Ipratropium 3ml neb HHN PRN (16:29)
[2018-02-17] MEDS ORDERED: Nitroglycerin Subl 0.4mg tab SL PRN (16:30)
[2018-02-17] MEDS ORDERED: Miralax 17gm pkt ORAL PRN (16:30)
--- NOTE | 2018-02-17 17:43 | Diagnostic Imaging Report ---
Indication: Acute renal failure and chronic renal failure Technique: Grayscale and duplex images of the kidneys, retroperitoneum, and bladder were obtained. Comparison: 01/10/2018 Findings: Right kidney measures 10.5 cm in length. Left kidney measures 9 cm in length. Both kidneys demonstrate slightly increased echogenicity. Mildly prominent right extrarenal pelvis but no patti hydronephrosis. There are bilateral renal cysts. Previously demonstrated Huerta catheter is no longer evident. Poorly visualized Inferior vena cava. The prostate is enlarged, calculated volume 51 mL. It protrudes into the bladder floor. There is posterior bladder wall thickening versus intraluminal debris. Impression: Increased hepatic echogenicity, consistent with medical renal disease. No definite hydronephrosis Posterior bladder wall thickening versus debris, bladder neoplasm not excludable. Consider further evaluation with cystoscopy if clinically indicated Enlarged 51 mL prostate Bilateral renal cysts incidentally noted
[2018-02-17] MEDS: Docusate 100mg cap ORAL SCH (17:49)
[2018-02-17] MEDS ORDERED: Docusate 100mg cap ORAL SCH (18:00)
--- NOTE | 2018-02-17 18:26 | Cardiology Report ---
APPROVED REPORT EKG Measurement Heart [id number] Normal sinus rhythm Possible Inferior infarct, age undetermined Cannot rule out Anterior infarct, age undetermined Abnormal ECG
[2018-02-17 20:00] VITALS: BP 127/69
--- NOTE | 2018-02-17 20:01 | History and Physical Report ---
DATE OF ADMISSION: 02/16/2018 TIME SEEN: 1 p.m. CONSULTANTS: 1. Joyce Winters M.D. 2. Reji Correa M.D. 3. Armani Goodson M.D. 4. Deshaun Cheung M.D CHIEF COMPLAINT: Hyperglycemia , weakness, urinary tract infection, poor hearing. BRIEF HISTORY: The patient is an 82-year-old male who lives at home presents with shaky, weakness and thirsty, came to [facility], diagnosed with hyperglycemia and admitted to telemetry for further care. Currently, calm in bed, slightly weak, no complaint. REVIEW OF SYSTEMS: No chest pain. No shortness of breath. No nausea, vomiting, or diarrhea. PAST MEDICAL HISTORY: Includes diabetes, hypertension, poor hearing. PAST SURGICAL HISTORY: Bladder catheterization. MEDICATIONS: Norvasc, Proscar, insulin, , albuterol, Tylenol, morphine, and Zofran. ALLERGIES: PENICILLIN. SOCIAL HISTORY: No smoking. No alcohol. No intravenous drug abuse. FAMILY HISTORY: Noncontributory. PHYSICAL EXAMINATION: GENERAL: Calm in bed, oriented x1, in no acute distress. VITAL SIGNS: Temperature 97, pulse 108, respiratory rate 20, blood pressure 143/75. CARDIOVASCULAR: No murmur. LUNGS: Distant and clear. ABDOMEN: Positive bowel sounds. Soft, nontender, nondistended. EXTREMITIES: Show no cyanosis, clubbing, or edema. NEUROLOGIC: The patient moves all extremities, slightly weak. LABORATORY DATA: Labs at this time show white count 11.4, otherwise CBC is normal. BMP shows BUN and creatinine is 83 over 4.3, renal failure. Glucose was initially 535 now 248. Urinalysis show 3+ leukocyte esterase. ASSESSMENT: 1. Weakness. 2. Thirsty. 3. Shaky. 4. Hyperglycemia, diabetes. 5. Renal failure. 6. UTI. 7. Hypertension. PLAN: 1. OT/PT, dietary evaluation. 2. Blood pressure and blood sugar control. 3. CBC and BMP in the morning. 4. Antibiotics per Infectious Diseases. Dr. Ernandez Nephrology will be added. We will continue to follow the patient. Kevon Viera D.O. DR: Rafa JOB#: [id number] CC:
--- NOTE | 2018-02-17 20:46 | Consultation ---
DATE OF CONSULTATION: 02/17/2018 INFECTIOUS DISEASE CONSULTATION CONSULTING PHYSICIAN: Deshaun Cheung M.D. REFERRING PHYSICIAN: Kevon Viera D.O. REASON FOR CONSULTATION: Evaluation of the patient for UTI and antibiotic management. HISTORY OF PRESENT ILLNESS: The patient is an 82-year-old male with multiple medical problems, who was recently admitted to this medical center with UTI. The patient now comes to the hospital with chief complaint of difficulty urination/dysuria and painful urination, admitted with impression of possible recurrent UTI. Infectious Disease consultation has been requested for further evaluation of the patient and antibiotic management. PAST MEDICAL HISTORY: 1. Bilateral hearing loss. 2. Dementia. 3. BPH. 4. Hypertension. 5. History of hydronephrosis. 6. Diabetes. 7. CKD. ALLERGIES: Allergic to penicillin? (severity of reaction), the patient has in the past. MEDICATIONS: The patient received a dose of cefepime prior to admission. SOCIAL HISTORY: The patient lives at home. FAMILY HISTORY: Not contributing. REVIEW OF SYSTEMS: Limited. Much of information is able to gather patient and nursing as mentioned above. PHYSICAL EXAMINATION: VITAL SIGNS: Temperature 97.8, pulse 86, respiratory rate 18, and blood pressure 114/70. HEENT: No pale conjunctivae. No icterus. NECK: No lymphadenopathy. CHEST: Clear. HEART: S1 and S2. ABDOMEN: Soft and nontender. EXTREMITIES: No cyanosis at this time. LABORATORY AND DIAGNOSTIC DATA: White blood cells 11.44, hemoglobin 16, and platelets 242,000. UA shows 10 to 15 white blood cells, too numerous to count. BUN 83 and creatinine 4.3. ALT, AST, and alkaline phosphatase are unremarkable. Urine culture is growing gram-negative rods. Urine culture from 01/09/2018 growing ESBL E. coli. Ultrasound of kidney on 01/10/2018 showed mild renal hydroureter. ASSESSMENT: 1. The patient is an 82-year-old male with UTI. Urine culture is growing gram-negative rods (history of ESBL E. coli UTI). 2. Probable prostatitis. 3. Probable urinary obstruction. 4. Worsening of CKD. PLAN: 1. We will start the patient on IV meropenem day #1. 2. Monitor CBC. 3. Monitor BMP. 4. Monitor cultures (blood, urine). 5. Ultrasound of kidney is pending. 6. Nephrology follow up. 7. PSA. 8. Based on the patient's laboratories and cultures, we will do further recommendations. Deshaun Cheung M.D. DR: INDIRA JOB#: [id number] CC:
[2018-02-17] MEDS ORDERED: Meropenem 500mg in NS 55ml IVPB SCH (21:00)
[2018-02-17] MEDS: Meropenem 500 MG in NS 55 ML IVPB SCH (22:45)
[2018-02-18] VITALS: BP 133/79
[2018-02-18 04:00] VITALS: BP 132/78
[2018-02-18] MEDS: NovoLOG Insulin Flexpen SUBQ SCH ×7 (06:29→20:57)
--- NOTE | 2018-02-18 06:29 | General Progress Note ---
Assessment/Plan Problem List: (1) Stage 4 chronic kidney disease ICD Codes: N18.4 - Chronic kidney disease, stage 4 (severe) SNOMED: 688445997 (2) Diabetes mellitus ICD Codes: E11.9 - Type 2 diabetes mellitus without complications SNOMED: 83495090 (3) Hyperglycemia ICD Codes: R73.9 - Hyperglycemia, unspecified SNOMED: 06702153 Assessment/Plan continue Levemir 15 units daily continue Novolog 5 units ac tid + NSSI ac / hs Subjective ROS Limited/Unobtainable: Yes Allergies: Coded Allergies: PENICILLINS (Verified Allergy, Unknown, 01/10/18) Subjective events noted Objective Last 24 Hour Vital Signs Date Time Temp Pulse Resp B/P (MAP) Pulse Ox O2 Delivery O2 Flow Rate FiO2 02/18/18 04:00 99.2 97 19 132/78 (96) 95 02/18/18 00:00 98.5 92 18 133/79 (97) 97 02/17/18 21:00 Room Air 02/17/18 21:00 Room Air 02/17/18 20:00 98.1 89 18 127/69 (88) 100 02/17/18 16:00 98.3 93 20 127/69 (88) 98 02/17/18 12:00 96 02/17/18 12:00 98.7 101 20 114/70 (85) 98 02/17/18 09:00 Room Air 02/17/18 08:32 108 143/75 02/17/18 08:00 97.8 108 20 143/75 (97) 96 02/17/18 08:00 107 Intake and Output 02/17/18 02/18/18 19:00 07:00 Intake Total 390 ml 855 ml Balance 390 ml 855 ml Intake Oral 290 ml IV Total 100 ml 855 ml # Voids 3 Laboratory Tests 02/17/18 14:36: Urine Color Pale yellow, Urine Appearance Slightly cloudy, Urine pH 5, Urine Specific [place] 1.015, Urine Protein 3+H, Urine Glucose (UA) 3+H, Urine Ketones 1+H, Urine Blood 4+H, Urine Nitrite PositiveH, Urine Bilirubin Negative , Urine Urobilinogen Normal, Urine Leukocyte Esterase 3+H, Urine RBC 5-10H, Urine WBC 15-20H, Urine Squamous Epithelial Cells None, Urine Amorphous Sediment FewH, Urine Bacteria ModerateH, Urine Yeast FewH, Urine Eosinophils None seen, Urine Random Sodium < 20L, Urine Potassium Timed 35 02/18/18 05:33: White Blood Count [Pending], Red Blood Count [Pending], Hemoglobin [Pending], Hematocrit [Pending], Mean Corpuscular Volume [Pending], Mean Corpuscular Hemoglobin [Pending], Mean Corpuscular Hemoglobin Concent [Pending], Red Cell Distribution Width [Pending], Platelet Count [Pending], Mean Platelet Volume [ Pending], Neutrophils (%) (Auto) [Pending], Lymphocytes (%) (Auto) [Pending], Monocytes (%) (Auto) [Pending], Eosinophils (%) (Auto) [Pending], Basophils (%) (Auto) [Pending], Sodium Level [Pending], Potassium Level [Pending], Chloride Level [Pending], Carbon Dioxide Level [Pending], Blood Urea Nitrogen [Pending], Creatinine [Pending], Estimat Glomerular Filtration Rate [Pending], Glucose Level [Pending], Hemoglobin A1c [Pending], Uric Acid [Pending], Calcium Level [ Pending], Phosphorus Level [Pending], Magnesium Level [Pending], Total Bilirubin [Pending], Gamma Glutamyl Transpeptidase [Pending], Aspartate Amino Transf (AST/SGOT) [Pending], Alanine Aminotransferase (ALT/SGPT) [Pending], Alkaline Phosphatase [Pending], Ammonia [Pending], Total Creatine Kinase [ Pending], Pro-B-Type Natriuretic Peptide [Pending], Total Protein [Pending], Albumin [Pending], Globulin [Pending], Triglycerides Level [Pending], Cholesterol Level [Pending], LDL Cholesterol [Pending], HDL Cholesterol [Pending ], Cholesterol/HDL Ratio [Pending] Height (Feet): 5 Height (Inches): 6.00 Weight (Pounds): 150 General Appearance: no apparent distress Neck: normal alignment Cardiovascular: normal rate Respiratory/Chest: lungs clear Abdomen: normal bowel sounds Objective Current Medications Medications (Trade) Dose Ordered Sig/Venessa Route PRN Reason Start Time Stop Time Status Last Admin Dose Admin Acetaminophen (Tylenol) 650 mg Q4H PRN ORAL fever 02/17/18 16:29 03/18/18 16:28 Albuterol/ Ipratropium (Albuterol/ Ipratropium) 3 ml Q4H PRN HHN Shortness of Breath 02/17/18 16:29 02/21/18 16:28 Allopurinol (Zyloprim) 100 mg DAILY ORAL 02/18/18 09:00 03/20/18 08:59 Dextrose (Dextrose 50%) 25 ml Q30M PRN IV Hypoglycemia 02/17/18 16:29 03/19/18 16:28 Dextrose (Dextrose 50%) 50 ml Q30M PRN IV Hypoglycemia 02/17/18 16:30 03/19/18 06:59 Docusate Sodium (Colace) 100 mg THREE TIMES A DAY ORAL 02/17/18 18:00 03/19/18 17:59 02/17/18 17:49 Finasteride (Proscar) 5 mg DAILY ORAL 02/18/18 09:00 03/19/18 08:59 Heparin Sodium (Porcine) (Heparin 5000 units/ml) 5,000 units EVERY 12 HOURS SUBQ 02/17/18 21:00 03/18/18 20:59 02/17/18 22:46 Insulin Aspart (NovoLOG) BEFORE MEALS AND HS SUBQ 02/17/18 16:30 03/18/18 16:29 02/17/18 22:47 Insulin Aspart (NovoLOG) 5 units NOVOTIAC SUBQ 02/17/18 16:50 03/19/18 07:59 Insulin Detemir (Levemir) 15 units DAILY SUBQ 02/18/18 09:00 03/19/18 08:59 Meropenem 500 mg/ Sodium Chloride 55 ml @ 110 mls/hr EVERY 12 HOURS IVPB 02/17/18 21:00 02/22/18 20:59 02/17/18 22:45 Morphine Sulfate (Morphine Sulfate) 2 mg Q4H PRN IVP Moderate Pain (Pain Scale 4-6) 02/17/18 16:30 02/23/18 16:29 Nitroglycerin (Ntg) 0.4 mg Q5M PRN SL Prn Chest Pain 02/17/18 16:30 03/18/18 14:29 Ondansetron HCl (Zofran) 4 mg Q6H PRN IVP Nausea & Vomiting 02/17/18 16:30 03/18/18 16:29 Polyethylene Glycol (Miralax) 17 gm DAILYPRN PRN ORAL Constipation 02/17/18 16:30 03/19/18 16:29 Sodium Chloride 1,000 ml @ 100 mls/hr Q10H IV 02/17/18 16:28 03/19/18 16:27 02/18/18 02:35 Tamsulosin HCl (Flomax) 0.4 mg BID ORAL 02/18/18 09:00 03/20/18 08:59 Temazepam (Restoril) 15 mg HSPRN PRN ORAL Insomnia 02/17/18 16:31 02/24/18 16:30 Vancomycin HCl (Vanco rx to dose) 1 ea DAILY PRN MISC per rx protocol 02/18/18 09:00 03/18/18 15:44 Item Value Date Time Bedside Blood Glucose 125 mg/dl H 02/17/18 2247 Bedside Blood Glucose 235 mg/dl H 02/17/18 1650 Bedside Blood Glucose 274 mg/dl H 02/17/18 1210 Bedside Blood Glucose 241 mg/dl H 02/17/18 0927 Bedside Blood Glucose 241 mg/dl H 02/17/18 0630 Reji Correa MD Feb 18, 2018 06:29
[2018-02-18 06:36] LABS: BASOPHILS % (AUTO) 0.8 % (0.0-2.0); EOSINOPHILS % (AUTO) 4.6 % (0.0-3.0); HEMATOCRIT 44.4 % (42.0-52.0); HEMOGLOBIN 15.2 G/DL (14.2-18.0); LYMPHOCYTES % (AUTO) 19.9 % (20.0-45.0); MEAN CORPUSCULAR VOLUME 86 FL (80-99); MONOCYTES % (AUTO) 7.2 % (1.0-10.0); NEUTROPHILS % (AUTO) 67.5 % (45.0-75.0); PLATELET COUNT 243 K/UL (150-450); RED BLOOD COUNT 5.16 M/UL (4.70-6.10); RED CELL DISTRIBUTION WIDTH 10.8 % (11.6-14.8); WHITE BLOOD COUNT 8.9 K/UL (4.8-10.8)
[2018-02-18 07:25] LABS: ALANINE AMINOTRANSFERASE 11 U/L (12-78); ALBUMIN 3.4 G/DL (3.4-5.0); ALBUMIN/GLOBULIN RATIO 0.7 (1.0-2.7); ALKALINE PHOSPHATASE 88 U/L (46-116); ANION GAP 12 mmol/L (5-15); ASPARTATE AMINO TRANSFERASE 13 U/L (15-37); BLOOD UREA NITROGEN 73 mg/dL (7-18); CARBON DIOXIDE 25 MMOL/L (21-32); CHLORIDE 101 MMOL/L (98-107); CHOLESTEROL 185 MG/DL (< 200); CREATINE KINASE 42 U/L (26-308); CREATININE 3.8 MG/DL (0.55-1.30); GAMMA GLUTAMYL TRANSPEPTIDASE 87 U/L (5-85); HDL CHOLESTEROL 45 MG/DL (40-60); POTASSIUM 3.7 MMOL/L (3.5-5.1); SODIUM 138 MMOL/L (136-145); TRIGLYCERIDES 114 MG/DL (30-150)
[2018-02-18 07:27] LABS: AMMONIA 20 umol/L (11-32)
[2018-02-18 08:47] VITALS: BP 140/80
[2018-02-18] MEDS ORDERED: Tamsulosin 0.4mg cap ORAL SCH (09:00)
[2018-02-18] MEDS ORDERED: Allopurinol 100mg Tab ORAL SCH ×2 (09:00)
[2018-02-18] MEDS: Allopurinol 100mg Tab ORAL SCH (09:00)
[2018-02-18] MEDS ORDERED: Levemir Flexpen SUBQ SCH (09:00)
[2018-02-18] MEDS: Tamsulosin 0.4mg cap ORAL SCH ×2 (10:20→18:17)
[2018-02-18] MEDS: Docusate 100mg cap ORAL SCH ×3 (10:21→18:17)
[2018-02-18] MEDS: Heparin 5000 units/ml inj SUBQ SCH ×2 (10:24→20:57)
[2018-02-18] MEDS: Meropenem 500 MG in NS 55 ML IVPB SCH ×2 (11:18→22:53)
[2018-02-18 12:16] VITALS: BP 116/67
--- NOTE | 2018-02-18 12:31 | Consultation ---
DATE OF CONSULTATION: 02/17/2018 ENDOCRINOLOGY CONSULTATION CONSULTING PHYSICIAN: Reji Correa M.D. REFERRING PHYSICIAN: Kevon Viera D.O. REASON FOR CONSULTATION: Hyperglycemia. HISTORY OF PRESENT ILLNESS: The patient is an 82-year-old male with past medical history of diabetes, insulin-dependent; hypertension; BPH; and chronic kidney disease, stage 4 with bilateral hearing loss who was brought to the hospital via ambulance by family because of acting weaker than usual. He has not been taking his insulin, glucose of over 400. He was not in DKA. Endocrinology was consulted to assist in management of diabetes. PAST MEDICAL HISTORY: 1. Insulin-dependent diabetes. 2. Hypertension. 3. BPH. 4. Chronic kidney disease. 5. Bilateral hearing loss. MEDICATIONS: Reviewed and reconciled. SOCIAL HISTORY: No smoking, alcohol, or drug use. He lives at home. PAST SURGICAL HISTORY: None. FAMILY HISTORY: Noncontributory. ALLERGIES: Penicillin. REVIEW OF SYSTEMS: Difficult to obtain due to the patient's hearing deficit. PHYSICAL EXAMINATION: GENERAL: He is awake. VITAL SIGNS: Blood pressure is 143/75, pulse 108, temperature 97, and respiratory rate of 20. HEENT: Pupils are equal and reactive to light. Sclerae are anicteric. NECK: No JVD. HEART: Regular. LUNGS: Clear. ABDOMEN: Positive bowel sounds. Soft. EXTREMITIES: No clubbing or cyanosis. Positive for edema. ATTENDING PHYSICIAN: WBC 11, hemoglobin 16.3, hematocrit 46.9, and platelets of 242. Sodium 140, potassium 4.5, chloride 101, bicarb 24, BUN 82, creatinine 4.3, and glucose 248. Uric acid of 14.1. Hemoglobin A1c is still pending. DIAGNOSES: 1. Diabetes, out of control. 2. Noncompliance with insulin. 3. Chronic kidney disease, stage 4. PLAN: 1. Start Levemir 15 units daily. 2. Start NovoLog 5 units before each meal. 3. NovoLog sliding scale before meals and at bedtime. 4. The patient is followed by Nephrology. I will follow the patient during the hospital stay. Thank you, Dr. Viera, for the courtesy of this consultation. Reji Nazemi, M.D. DR: RAINA JOB#: [id number] CC: TATIANA
--- NOTE | 2018-02-18 12:56 | Nephrology Progress Note ---
Assessment/Plan Problem List: (1) Acute on chronic renal failure (2) Hyperglycemia (3) Dehydration (4) UTI (urinary tract infection) Assessment Acute on Chronic Renal failure- Cr lower Hyperglycemia HyperUrecemia UTI Proteinuria and HypoAlbuminemia Plan Flomax Fluid Challenge BS control Monitor renal parameters 2D Echo pending 70% ejFx Kidney HIEN no hydro per orders Subjective ROS Limited/Unobtainable: No Constitutional: Reports: malaise, weakness Objective Objective Last 24 Hour Vital Signs Date Time Temp Pulse Resp B/P (MAP) Pulse Ox O2 Delivery O2 Flow Rate FiO2 02/18/18 12:16 98.2 91 20 116/67 (83) 97 02/18/18 08:47 98.5 94 18 140/80 (100) 98 02/18/18 08:46 Room Air 02/18/18 04:00 99.2 97 19 132/78 (96) 95 02/18/18 00:00 98.5 92 18 133/79 (97) 97 02/17/18 21:00 Room Air 02/17/18 21:00 Room Air 02/17/18 20:00 98.1 89 18 127/69 (88) 100 02/17/18 16:00 98.3 93 20 127/69 (88) 98 Intake and Output 02/17/18 02/18/18 18:59 06:59 Intake Total 390 ml 1515 ml Output Total 900 ml Balance 390 ml 615 ml Intake Oral 290 ml 360 ml IV Total 100 ml 1155 ml Output Urine Total 900 ml # Voids 3 Laboratory Tests 02/17/18 14:36: Urine Color Pale yellow, Urine Appearance Slightly cloudy, Urine pH 5, Urine Specific [place] 1.015, Urine Protein 3+H, Urine Glucose (UA) 3+H, Urine Ketones 1+H, Urine Blood 4+H, Urine Nitrite PositiveH, Urine Bilirubin Negative , Urine Urobilinogen Normal, Urine Leukocyte Esterase 3+H, Urine RBC 5-10H, Urine WBC 15-20H, Urine Squamous Epithelial Cells None, Urine Amorphous Sediment FewH, Urine Bacteria ModerateH, Urine Yeast FewH, Urine Eosinophils None seen, Urine Random Sodium < 20L, Urine Potassium Timed 35 02/18/18 05:33: White Blood Count 8.9, Red Blood Count 5.16, Hemoglobin 15.2, Hematocrit 44.4, Mean Corpuscular Volume 86, Mean Corpuscular Hemoglobin 29.4, Mean Corpuscular Hemoglobin Concent 34.2, Red Cell Distribution Width 10.8L, Platelet Count 243, Mean Platelet Volume 12.5H, Neutrophils (%) (Auto) 67.5, Lymphocytes (%) (Auto) 19.9L, Monocytes (%) (Auto) 7.2, Eosinophils (%) (Auto) 4.6H, Basophils (%) ( Auto) 0.8, Sodium Level 138, Potassium Level 3.7, Chloride Level 101, Carbon Dioxide Level 25, Anion Gap 12, Blood Urea Nitrogen 73H, Creatinine 3.8H, Estimat Glomerular Filtration Rate , Glucose Level 185H, Hemoglobin A1c 10.5H, Uric Acid 11.6H, Calcium Level 9.0, Phosphorus Level 3.0, Magnesium Level 2.3, Total Bilirubin 1.0, Gamma Glutamyl Transpeptidase 87H, Aspartate Amino Transf ( AST/SGOT) 13L, Alanine Aminotransferase (ALT/SGPT) 11L, Alkaline Phosphatase 88 , Ammonia 20, Total Creatine Kinase 42, Pro-B-Type Natriuretic Peptide 737H, Total Protein 8.5H, Albumin 3.4, Globulin 5.1, Albumin/Globulin Ratio 0.7L, Triglycerides Level 114, Cholesterol Level 185, LDL Cholesterol 120H, HDL Cholesterol 45, Cholesterol/HDL Ratio 4.1 Height (Feet): 5 Height (Inches): 6.00 Weight (Pounds): 150 General Appearance: no apparent distress Cardiovascular: tachycardia Respiratory/Chest: decreased breath sounds Abdomen: distended Guilherme Ernandez MD Feb 18, 2018 12:56
--- NOTE | 2018-02-18 13:00 | Pulmonology Progress Note ---
Assessment/Plan Problems: (1) Bacteremia (2) Hyperglycemia (3) Acute encephalopathy (4) Stage 4 chronic kidney disease (5) Diabetes mellitus (6) mild vascular dementia Assessment/Plan continue iv fluids continue IV abx f/u blood culture results BS improving f/u electrolytes all consults reviewed. Subjective ROS Limited/Unobtainable: No Constitutional: Reports: no symptoms HEENT: Repors: no symptoms Respiratory: Reports: no symptoms Allergies: Coded Allergies: PENICILLINS (Verified Allergy, Unknown, 01/10/18) Objective Last 24 Hour Vital Signs Date Time Temp Pulse Resp B/P (MAP) Pulse Ox O2 Delivery O2 Flow Rate FiO2 02/18/18 12:16 98.2 91 20 116/67 (83) 97 02/18/18 08:47 98.5 94 18 140/80 (100) 98 02/18/18 08:46 Room Air 02/18/18 04:00 99.2 97 19 132/78 (96) 95 02/18/18 00:00 98.5 92 18 133/79 (97) 97 02/17/18 21:00 Room Air 02/17/18 21:00 Room Air 02/17/18 20:00 98.1 89 18 127/69 (88) 100 02/17/18 16:00 98.3 93 20 127/69 (88) 98 Intake and Output 02/17/18 02/18/18 18:59 06:59 Intake Total 390 ml 1515 ml Output Total 900 ml Balance 390 ml 615 ml Intake Oral 290 ml 360 ml IV Total 100 ml 1155 ml Output Urine Total 900 ml # Voids 3 General Appearance: WD/WN HEENT: normocephalic Respiratory/Chest: chest wall non-tender, normal breath sounds Cardiovascular: normal peripheral pulses, normal rate Abdomen: normal bowel sounds, soft, non tender Genitourinary: normal external genitalia Extremities: no cyanosis 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, abnormal gait Lymphatic: no neck adenopathy Microbiology Date/Time Source Procedure Growth Status 02/16/18 13:15 Blood Blood Culture - Preliminary NO GROWTH AFTER 24 HOURS Resulted 02/16/18 13:10 Blood Blood Culture - Preliminary Resulted 02/17/18 14:36 Urine,Clean Catch Urine Culture - Preliminary Gram Negative Bacillus 1 Resulted 02/17/18 01:00 Indwelling Cath Urine Culture - Preliminary Gram Negative Bacillus 1 Resulted 02/16/18 13:20 Urine,Clean Catch Urine Culture - Final Escherichia Coli - Esbl Complete Laboratory Tests 02/17/18 14:36: Urine Color Pale yellow, Urine Appearance Slightly cloudy, Urine pH 5, Urine Specific [place] 1.015, Urine Protein 3+H, Urine Glucose (UA) 3+H, Urine Ketones 1+H, Urine Blood 4+H, Urine Nitrite PositiveH, Urine Bilirubin Negative , Urine Urobilinogen Normal, Urine Leukocyte Esterase 3+H, Urine RBC 5-10H, Urine WBC 15-20H, Urine Squamous Epithelial Cells None, Urine Amorphous Sediment FewH, Urine Bacteria ModerateH, Urine Yeast FewH, Urine Eosinophils None seen, Urine Random Sodium < 20L, Urine Potassium Timed 35 02/18/18 05:33: White Blood Count 8.9, Red Blood Count 5.16, Hemoglobin 15.2, Hematocrit 44.4, Mean Corpuscular Volume 86, Mean Corpuscular Hemoglobin 29.4, Mean Corpuscular Hemoglobin Concent 34.2, Red Cell Distribution Width 10.8L, Platelet Count 243, Mean Platelet Volume 12.5H, Neutrophils (%) (Auto) 67.5, Lymphocytes (%) (Auto) 19.9L, Monocytes (%) (Auto) 7.2, Eosinophils (%) (Auto) 4.6H, Basophils (%) ( Auto) 0.8, Sodium Level 138, Potassium Level 3.7, Chloride Level 101, Carbon Dioxide Level 25, Anion Gap 12, Blood Urea Nitrogen 73H, Creatinine 3.8H, Estimat Glomerular Filtration Rate , Glucose Level 185H, Hemoglobin A1c 10.5H, Uric Acid 11.6H, Calcium Level 9.0, Phosphorus Level 3.0, Magnesium Level 2.3, Total Bilirubin 1.0, Gamma Glutamyl Transpeptidase 87H, Aspartate Amino Transf ( AST/SGOT) 13L, Alanine Aminotransferase (ALT/SGPT) 11L, Alkaline Phosphatase 88 , Ammonia 20, Total Creatine Kinase 42, Pro-B-Type Natriuretic Peptide 737H, Total Protein 8.5H, Albumin 3.4, Globulin 5.1, Albumin/Globulin Ratio 0.7L, Triglycerides Level 114, Cholesterol Level 185, LDL Cholesterol 120H, HDL Cholesterol 45, Cholesterol/HDL Ratio 4.1 Current Medications Medications (Trade) Dose Ordered Sig/Venessa Route PRN Reason Start Time Stop Time Status Last Admin Dose Admin Acetaminophen (Tylenol) 650 mg Q4H PRN ORAL fever 02/17/18 16:29 03/18/18 16:28 Albuterol/ Ipratropium (Albuterol/ Ipratropium) 3 ml Q4H PRN HHN Shortness of Breath 02/17/18 16:29 02/21/18 16:28 Allopurinol (Zyloprim) 200 mg DAILY ORAL 02/18/18 09:00 03/20/18 08:59 02/18/18 09:00 Dextrose (Dextrose 50%) 25 ml Q30M PRN IV Hypoglycemia 02/17/18 16:29 03/19/18 16:28 Dextrose (Dextrose 50%) 50 ml Q30M PRN IV Hypoglycemia 02/17/18 16:30 03/19/18 06:59 Docusate Sodium (Colace) 100 mg THREE TIMES A DAY ORAL 02/17/18 18:00 03/19/18 17:59 02/18/18 10:21 Finasteride (Proscar) 5 mg DAILY ORAL 02/18/18 09:00 03/19/18 08:59 02/18/18 10:20 Heparin Sodium (Porcine) (Heparin 5000 units/ml) 5,000 units EVERY 12 HOURS SUBQ 02/17/18 21:00 03/18/18 20:59 02/18/18 10:24 Insulin Aspart (NovoLOG) BEFORE MEALS AND HS SUBQ 02/17/18 16:30 03/18/18 16:29 02/18/18 12:23 Insulin Aspart (NovoLOG) 5 units NOVOTIAC SUBQ 02/17/18 16:50 03/19/18 07:59 02/18/18 12:25 Insulin Detemir (Levemir) 15 units DAILY SUBQ 02/18/18 09:00 03/19/18 08:59 02/18/18 10:30 Meropenem 500 mg/ Sodium Chloride 55 ml @ 110 mls/hr EVERY 12 HOURS IVPB 02/17/18 21:00 02/22/18 20:59 02/18/18 11:18 Morphine Sulfate (Morphine Sulfate) 2 mg Q4H PRN IVP Moderate Pain (Pain Scale 4-6) 02/17/18 16:30 02/23/18 16:29 Nitroglycerin (Ntg) 0.4 mg Q5M PRN SL Prn Chest Pain 02/17/18 16:30 03/18/18 14:29 Ondansetron HCl (Zofran) 4 mg Q6H PRN IVP Nausea & Vomiting 02/17/18 16:30 03/18/18 16:29 Polyethylene Glycol (Miralax) 17 gm DAILYPRN PRN ORAL Constipation 02/17/18 16:30 03/19/18 16:29 Sodium Chloride 1,000 ml @ 75 mls/hr [id number] IV 02/18/18 08:00 03/20/18 07:59 Tamsulosin HCl (Flomax) 0.4 mg BID ORAL 02/18/18 09:00 03/20/18 08:59 02/18/18 10:20 Temazepam (Restoril) 15 mg HSPRN PRN ORAL Insomnia 02/17/18 16:31 02/24/18 16:30 Vancomycin HCl (Vanco rx to dose) 1 ea DAILY PRN MISC per rx protocol 02/18/18 09:00 03/18/18 15:44 Joyce Winters MD Feb 18, 2018 13:00
--- NOTE | 2018-02-18 14:21 | General Progress Note ---
Assessment/Plan Problem List: (1) Diabetes mellitus ICD Codes: E11.9 - Type 2 diabetes mellitus without complications SNOMED: 42843966 (2) Acute on chronic renal failure ICD Codes: N17.9 - Acute kidney failure, unspecified; N18.9 - Chronic kidney disease, unspecified SNOMED: 958349805 (3) UTI (urinary tract infection) ICD Codes: N39.0 - Urinary tract infection, site not specified SNOMED: 43483662 (4) Hyperglycemia ICD Codes: R73.9 - Hyperglycemia, unspecified SNOMED: 10284648 (5) Dehydration ICD Codes: E86.0 - Dehydration SNOMED: 59146413 Status: unchanged Assessment/Plan ot pt diet abx cbc bmp am dc plan snf w hh if clear Subjective Constitutional: Reports: weakness Allergies: Coded Allergies: PENICILLINS (Verified Allergy, Unknown, 01/10/18) All Systems: reviewed and negative except above Subjective sleepy calm Objective Last 24 Hour Vital Signs Date Time Temp Pulse Resp B/P (MAP) Pulse Ox O2 Delivery O2 Flow Rate FiO2 02/18/18 12:16 98.2 91 20 116/67 (83) 97 02/18/18 08:47 98.5 94 18 140/80 (100) 98 02/18/18 08:46 Room Air 02/18/18 04:00 99.2 97 19 132/78 (96) 95 02/18/18 00:00 98.5 92 18 133/79 (97) 97 02/17/18 21:00 Room Air 02/17/18 21:00 Room Air 02/17/18 20:00 98.1 89 18 127/69 (88) 100 02/17/18 16:00 98.3 93 20 127/69 (88) 98 Intake and Output 02/17/18 02/18/18 18:59 06:59 Intake Total 390 ml 1515 ml Output Total 900 ml Balance 390 ml 615 ml Intake Oral 290 ml 360 ml IV Total 100 ml 1155 ml Output Urine Total 900 ml # Voids 3 Laboratory Tests 02/17/18 14:36: Urine Color Pale yellow, Urine Appearance Slightly cloudy, Urine pH 5, Urine Specific [place] 1.015, Urine Protein 3+H, Urine Glucose (UA) 3+H, Urine Ketones 1+H, Urine Blood 4+H, Urine Nitrite PositiveH, Urine Bilirubin Negative , Urine Urobilinogen Normal, Urine Leukocyte Esterase 3+H, Urine RBC 5-10H, Urine WBC 15-20H, Urine Squamous Epithelial Cells None, Urine Amorphous Sediment FewH, Urine Bacteria ModerateH, Urine Yeast FewH, Urine Eosinophils None seen, Urine Random Sodium < 20L, Urine Potassium Timed 35 02/18/18 05:33: White Blood Count 8.9, Red Blood Count 5.16, Hemoglobin 15.2, Hematocrit 44.4, Mean Corpuscular Volume 86, Mean Corpuscular Hemoglobin 29.4, Mean Corpuscular Hemoglobin Concent 34.2, Red Cell Distribution Width 10.8L, Platelet Count 243, Mean Platelet Volume 12.5H, Neutrophils (%) (Auto) 67.5, Lymphocytes (%) (Auto) 19.9L, Monocytes (%) (Auto) 7.2, Eosinophils (%) (Auto) 4.6H, Basophils (%) ( Auto) 0.8, Sodium Level 138, Potassium Level 3.7, Chloride Level 101, Carbon Dioxide Level 25, Anion Gap 12, Blood Urea Nitrogen 73H, Creatinine 3.8H, Estimat Glomerular Filtration Rate , Glucose Level 185H, Hemoglobin A1c 10.5H, Uric Acid 11.6H, Calcium Level 9.0, Phosphorus Level 3.0, Magnesium Level 2.3, Total Bilirubin 1.0, Gamma Glutamyl Transpeptidase 87H, Aspartate Amino Transf ( AST/SGOT) 13L, Alanine Aminotransferase (ALT/SGPT) 11L, Alkaline Phosphatase 88 , Ammonia 20, Total Creatine Kinase 42, Pro-B-Type Natriuretic Peptide 737H, Total Protein 8.5H, Albumin 3.4, Globulin 5.1, Albumin/Globulin Ratio 0.7L, Triglycerides Level 114, Cholesterol Level 185, LDL Cholesterol 120H, HDL Cholesterol 45, Cholesterol/HDL Ratio 4.1 Height (Feet): 5 Height (Inches): 6.00 Weight (Pounds): 150 General Appearance: lethargic EENT: normal ENT inspection Neck: normal alignment Cardiovascular: normal peripheral pulses, normal rate, regular rhythm Respiratory/Chest: chest wall non-tender, lungs clear, normal breath sounds Abdomen: normal bowel sounds, non tender, soft Extremities: normal inspection Edema: no edema noted Arm (L), no edema noted Arm (R), no edema noted Leg (L), no edema noted Leg (R), no edema noted Pedal (L), no edema noted Pedal (R), no edema noted Generalized Neurologic: motor weakness Skin: normal pigmentation, warm/dry Kevon Viera DO Feb 18, 2018 14:21
--- NOTE | 2018-02-18 14:58 | Cardiology Report ---
APPROVED REPORT EXAM: Two-dimensional and M-mode echocardiogram with Doppler and color Doppler. INDICATION Congestive Heart Failure M-Mode DIMENSIONS IVSd1.1 (0.7-1.1cm)Left Atrium (MM)3.3 (1.6-4.0cm) LVDd3.6 (3.5-5.6cm)Aortic Root3.7 (2.0-3.7cm) PWd1.0 (0.7-1.1cm)Aortic Cusp Exc.2.0 (1.5-2.0cm) LVDs1.9 (2.5-4.0cm) PWs1.7 cm Normal left ventricular chamber size, systolic function and wall motion. Left ventricular ejection fraction estimated to be 65-70 %. No evidence of left ventricular hypertrophy. No evidence of pericardial effusion. All other cardiac chamber sizes are within normal limits. Focal aortic valve sclerosis with adequate cusp excursion. Thickened mitral valve leaflets with normal excursion. Mitral annulus and aortic root calcification. Pulmonic valve not well visualized. Normal tricuspid valve structure. IVC at normal size with physiologic collapse. A color flow and spectral Doppler study was performed and revealed: Mild aortic regurgitation. Trace mitral regurgitation. Mitral diastolic velocities suggest reduced left ventricular relaxation c/w mild LV diastolic dysfunction (Grade I ). Mild tricuspid regurgitation. Tricuspid systolic velocities suggests peak right ventricular systolic pressure of 38 mmHg, consistent with mild pulmonary hypertension. Pulmonic regurgitation present.
[2018-02-18 15:50] VITALS: BP 130/78
--- NOTE | 2018-02-18 16:05 | Infectious Diseases Prog Note ---
Assessment/Plan Assessment/Plan ASSESSMENT: The patient is an 82-year-old male with +ve blood cx / : GPC Leukocytosis, SP UTI. UCX ESBL E. coli. Ultrasound of kidney on US kid : no hydroureter doubt prostatitis.: PSA : nl EF: 70% JENNY / CKD. Cr improving Bilateral hearing loss Dementia BPH Hypertension History of hydronephrosis Diabetes CKD Allergic to penicillin? (severity of reaction), the patient tolerated Carbapenem PLAN: Cont pt on on IV meropenem day # 2 / 14 and IV Vanco d# 1 Monitor CBC Monitor BMP. Monitor cultures (blood, urine).Rpt blood cx Nephrology follow up. Subjective Allergies: Coded Allergies: PENICILLINS (Verified Allergy, Unknown, 01/10/18) Subjective Comfortable Objective Vital Signs Last 24 Hour Vital Signs Date Time Temp Pulse Resp B/P (MAP) Pulse Ox O2 Delivery O2 Flow Rate FiO2 02/18/18 15:50 99.3 91 18 130/78 (95) 97 02/18/18 12:16 98.2 91 20 116/67 (83) 97 02/18/18 08:47 98.5 94 18 140/80 (100) 98 02/18/18 08:46 Room Air 02/18/18 04:00 99.2 97 19 132/78 (96) 95 02/18/18 00:00 98.5 92 18 133/79 (97) 97 02/17/18 21:00 Room Air 02/17/18 21:00 Room Air 02/17/18 20:00 98.1 89 18 127/69 (88) 100 Height (Feet): 5 Height (Inches): 6.00 Weight (Pounds): 150 HEENT: atraumatic Respiratory/Chest: normal breath sounds Cardiovascular: regularly irregular Abdomen: no organomegaly Microbiology Date/Time Source Procedure Growth Status 02/16/18 13:15 Blood Blood Culture - Preliminary NO GROWTH AFTER 24 HOURS Resulted 02/16/18 13:10 Blood Blood Culture - Preliminary Resulted 02/17/18 14:36 Urine,Clean Catch Urine Culture - Preliminary Gram Negative Bacillus 1 Resulted 02/17/18 01:00 Indwelling Cath Urine Culture - Preliminary Gram Negative Bacillus 1 Resulted 02/16/18 13:20 Urine,Clean Catch Urine Culture - Final Escherichia Coli - Esbl Complete Laboratory Tests Test 02/18/18 05:33 White Blood Count 8.9 K/UL (4.8-10.8) Red Blood Count 5.16 M/UL (4.70-6.10) Hemoglobin 15.2 G/DL (14.2-18.0) Hematocrit 44.4 % (42.0-52.0) Mean Corpuscular Volume 86 FL (80-99) Mean Corpuscular Hemoglobin 29.4 PG (27.0-31.0) Mean Corpuscular Hemoglobin Concent 34.2 G/DL (32.0-36.0) Red Cell Distribution Width 10.8 % (11.6-14.8) L Platelet Count 243 K/UL (150-450) Mean Platelet Volume 12.5 FL (6.5-10.1) H Neutrophils (%) (Auto) 67.5 % (45.0-75.0) Lymphocytes (%) (Auto) 19.9 % (20.0-45.0) L Monocytes (%) (Auto) 7.2 % (1.0-10.0) Eosinophils (%) (Auto) 4.6 % (0.0-3.0) H Basophils (%) (Auto) 0.8 % (0.0-2.0) Sodium Level 138 MMOL/L (136-145) Potassium Level 3.7 MMOL/L (3.5-5.1) Chloride Level 101 MMOL/L (98-107) Carbon Dioxide Level 25 MMOL/L (21-32) Anion Gap 12 mmol/L (5-15) Blood Urea Nitrogen 73 mg/dL (7-18) H Creatinine 3.8 MG/DL (0.55-1.30) H Estimat Glomerular Filtration Rate mL/min (>60) Glucose Level 185 MG/DL (74-106) H Hemoglobin A1c 10.5 % (4.3-6.0) H Uric Acid 11.6 MG/DL (2.6-7.2) H Calcium Level 9.0 MG/DL (8.5-10.1) Phosphorus Level 3.0 MG/DL (2.5-4.9) Magnesium Level 2.3 MG/DL (1.8-2.4) Total Bilirubin 1.0 MG/DL (0.2-1.0) Gamma Glutamyl Transpeptidase 87 U/L (5-85) H Aspartate Amino Transf (AST/SGOT) 13 U/L (15-37) L Alanine Aminotransferase (ALT/SGPT) 11 U/L (12-78) L Alkaline Phosphatase 88 U/L (46-116) Ammonia 20 umol/L (11-32) Total Creatine Kinase 42 U/L (26-308) Pro-B-Type Natriuretic Peptide 737 pg/mL (0-125) H Total Protein 8.5 G/DL (6.4-8.2) H Albumin 3.4 G/DL (3.4-5.0) Globulin 5.1 g/dL Albumin/Globulin Ratio 0.7 (1.0-2.7) L Triglycerides Level 114 MG/DL (30-150) Cholesterol Level 185 MG/DL (< 200) LDL Cholesterol 120 mg/dL (<100) H HDL Cholesterol 45 MG/DL (40-60) Cholesterol/HDL Ratio 4.1 (3.3-4.4) Current Medications Medications (Trade) Dose Ordered Sig/Venessa Route PRN Reason Start Time Stop Time Status Last Admin Dose Admin Acetaminophen (Tylenol) 650 mg Q4H PRN ORAL fever 02/17/18 16:29 03/18/18 16:28 Albuterol/ Ipratropium (Albuterol/ Ipratropium) 3 ml Q4H PRN HHN Shortness of Breath 02/17/18 16:29 02/21/18 16:28 Allopurinol (Zyloprim) 200 mg DAILY ORAL 02/18/18 09:00 03/20/18 08:59 02/18/18 09:00 Dextrose (Dextrose 50%) 25 ml Q30M PRN IV Hypoglycemia 02/17/18 16:29 03/19/18 16:28 Dextrose (Dextrose 50%) 50 ml Q30M PRN IV Hypoglycemia 02/17/18 16:30 03/19/18 06:59 Docusate Sodium (Colace) 100 mg THREE TIMES A DAY ORAL 02/17/18 18:00 03/19/18 17:59 02/18/18 14:57 Finasteride (Proscar) 5 mg DAILY ORAL 02/18/18 09:00 03/19/18 08:59 02/18/18 10:20 Heparin Sodium (Porcine) (Heparin 5000 units/ml) 5,000 units EVERY 12 HOURS SUBQ 02/17/18 21:00 03/18/18 20:59 02/18/18 10:24 Insulin Aspart (NovoLOG) BEFORE MEALS AND HS SUBQ 02/17/18 16:30 03/18/18 16:29 02/18/18 12:23 Insulin Aspart (NovoLOG) 5 units NOVOTIAC SUBQ 02/17/18 16:50 03/19/18 07:59 02/18/18 12:25 Insulin Detemir (Levemir) 15 units DAILY SUBQ 02/18/18 09:00 03/19/18 08:59 02/18/18 10:30 Meropenem 500 mg/ Sodium Chloride 55 ml @ 110 mls/hr EVERY 12 HOURS IVPB 02/17/18 21:00 02/22/18 20:59 02/18/18 11:18 Morphine Sulfate (Morphine Sulfate) 2 mg Q4H PRN IVP Moderate Pain (Pain Scale 4-6) 02/17/18 16:30 02/23/18 16:29 Nitroglycerin (Ntg) 0.4 mg Q5M PRN SL Prn Chest Pain 02/17/18 16:30 03/18/18 14:29 Ondansetron HCl (Zofran) 4 mg Q6H PRN IVP Nausea & Vomiting 02/17/18 16:30 03/18/18 16:29 Polyethylene Glycol (Miralax) 17 gm DAILYPRN PRN ORAL Constipation 02/17/18 16:30 03/19/18 16:29 Sodium Chloride 1,000 ml @ 75 mls/hr [id number] IV 02/18/18 08:00 03/20/18 07:59 Tamsulosin HCl (Flomax) 0.4 mg BID ORAL 02/18/18 09:00 03/20/18 08:59 02/18/18 10:20 Temazepam (Restoril) 15 mg HSPRN PRN ORAL Insomnia 02/17/18 16:31 02/24/18 16:30 Vancomycin HCl (Vanco rx to dose) 1 ea DAILY PRN MISC per rx protocol 02/18/18 09:00 03/18/18 15:44 Deshaun Cheung MD Feb 18, 2018 16:05
[2018-02-18 20:00] VITALS: BP 138/79
[2018-02-18] MEDS ORDERED: Vancomycin 1250mg/D5W 250ml IVPB ONE (20:00)
[2018-02-19] VITALS: BP 110/64
[2018-02-19 04:00] VITALS: BP 135/85
[2018-02-19] MEDS: NovoLOG Insulin Flexpen SUBQ SCH ×7 (05:56→20:20)
[2018-02-19 06:14] LABS: BASOPHILS % (AUTO) 1.3 % (0.0-2.0); EOSINOPHILS % (AUTO) 8.4 % (0.0-3.0); HEMATOCRIT 43.2 % (42.0-52.0); HEMOGLOBIN 14.6 G/DL (14.2-18.0); LYMPHOCYTES % (AUTO) 32.7 % (20.0-45.0); MEAN CORPUSCULAR VOLUME 86 FL (80-99); MONOCYTES % (AUTO) 13.1 % (1.0-10.0); NEUTROPHILS % (AUTO) 44.6 % (45.0-75.0); PLATELET COUNT 214 K/UL (150-450); RED BLOOD COUNT 5.03 M/UL (4.70-6.10); WHITE BLOOD COUNT 6.4 K/UL (4.8-10.8)
[2018-02-19 06:37] LABS: ALANINE AMINOTRANSFERASE 12 U/L (12-78); ALBUMIN/GLOBULIN RATIO 0.6 (1.0-2.7); ALKALINE PHOSPHATASE 83 U/L (46-116); ANION GAP 13 mmol/L (5-15); ASPARTATE AMINO TRANSFERASE 13 U/L (15-37); BILIRUBIN,TOTAL 0.7 MG/DL (0.2-1.0); BLOOD UREA NITROGEN 64 mg/dL (7-18); CALCIUM 8.7 MG/DL (8.5-10.1); CARBON DIOXIDE 22 MMOL/L (21-32); CHLORIDE 101 MMOL/L (98-107); CREATININE 3.6 MG/DL (0.55-1.30); PHOSPHORUS 3.6 MG/DL (2.5-4.9); POTASSIUM 3.3 MMOL/L (3.5-5.1); SODIUM 136 MMOL/L (136-145)
--- NOTE | 2018-02-19 06:54 | General Progress Note ---
Assessment/Plan Problem List: (1) Stage 4 chronic kidney disease ICD Codes: N18.4 - Chronic kidney disease, stage 4 (severe) SNOMED: 561935188 (2) Diabetes mellitus ICD Codes: E11.9 - Type 2 diabetes mellitus without complications SNOMED: 27264689 (3) Hyperglycemia ICD Codes: R73.9 - Hyperglycemia, unspecified SNOMED: 80792184 Assessment/Plan increase Levemir to 18 units daily continue Novolog 5 units ac tid + NSSI ac / hs Subjective Allergies: Coded Allergies: PENICILLINS (Verified Allergy, Unknown, 01/10/18) All Systems: reviewed and negative except above Subjective events noted Objective Last 24 Hour Vital Signs Date Time Temp Pulse Resp B/P (MAP) Pulse Ox O2 Delivery O2 Flow Rate FiO2 02/19/18 04:00 98.1 94 17 135/85 (102) 97 02/19/18 00:00 98.0 85 18 110/64 (79) 97 02/18/18 21:00 Room Air 02/18/18 20:00 98.2 96 17 138/79 (98) 97 02/18/18 15:50 99.3 91 18 130/78 (95) 97 02/18/18 12:16 98.2 91 20 116/67 (83) 97 02/18/18 08:47 98.5 94 18 140/80 (100) 98 02/18/18 08:46 Room Air Intake and Output 02/18/18 02/19/18 19:00 07:00 Intake Total 240 ml 880 ml Balance 240 ml 880 ml Intake Oral 240 ml IV Total 880 ml # Voids 100 Laboratory Tests 02/18/18 17:40: Random Vancomycin Level 9.0 02/19/18 05:50: White Blood Count 6.4, Red Blood Count 5.03, Hemoglobin 14.6, Hematocrit 43.2, Mean Corpuscular Volume 86, Mean Corpuscular Hemoglobin 28.9, Mean Corpuscular Hemoglobin Concent 33.7, Red Cell Distribution Width 11.0L, Platelet Count 214, Mean Platelet Volume 11.5H, Neutrophils (%) (Auto) 44.6L, Lymphocytes (%) (Auto ) 32.7, Monocytes (%) (Auto) 13.1H, Eosinophils (%) (Auto) 8.4H, Basophils (%) ( Auto) 1.3, Erythrocyte Sedimentation Rate [Pending], Sodium Level 136, Potassium Level 3.3L, Chloride Level 101, Carbon Dioxide Level 22, Anion Gap 13 , Blood Urea Nitrogen 64H, Creatinine 3.6H, Estimat Glomerular Filtration Rate , Glucose Level 229H, Uric Acid 10.3H, Calcium Level 8.7, Phosphorus Level 3.6, Magnesium Level 2.2, Total Bilirubin 0.7, Aspartate Amino Transf (AST/SGOT) 13L , Alanine Aminotransferase (ALT/SGPT) 12, Alkaline Phosphatase 83, C-Reactive Protein, Quantitative 1.7H, Pro-B-Type Natriuretic Peptide 772H, Total Protein 7.7, Albumin 3.0L, Globulin 4.7, Albumin/Globulin Ratio 0.6L Height (Feet): 5 Height (Inches): 6.00 Weight (Pounds): 149 General Appearance: no apparent distress Neck: normal alignment Cardiovascular: normal rate Respiratory/Chest: lungs clear Abdomen: normal bowel sounds Pelvis: normal external exam Objective Current Medications Medications (Trade) Dose Ordered Sig/Venessa Route PRN Reason Start Time Stop Time Status Last Admin Dose Admin Acetaminophen (Tylenol) 650 mg Q4H PRN ORAL fever 02/17/18 16:29 03/18/18 16:28 Albuterol/ Ipratropium (Albuterol/ Ipratropium) 3 ml Q4H PRN HHN Shortness of Breath 02/17/18 16:29 02/21/18 16:28 Allopurinol (Zyloprim) 200 mg DAILY ORAL 02/18/18 09:00 03/20/18 08:59 02/18/18 09:00 Dextrose (Dextrose 50%) 25 ml Q30M PRN IV Hypoglycemia 02/17/18 16:29 03/19/18 16:28 Dextrose (Dextrose 50%) 50 ml Q30M PRN IV Hypoglycemia 02/17/18 16:30 03/19/18 06:59 Docusate Sodium (Colace) 100 mg THREE TIMES A DAY ORAL 02/17/18 18:00 03/19/18 17:59 02/18/18 18:17 Finasteride (Proscar) 5 mg DAILY ORAL 02/18/18 09:00 03/19/18 08:59 02/18/18 10:20 Heparin Sodium (Porcine) (Heparin 5000 units/ml) 5,000 units EVERY 12 HOURS SUBQ 02/17/18 21:00 03/18/18 20:59 02/18/18 20:57 Insulin Aspart (NovoLOG) BEFORE MEALS AND HS SUBQ 02/17/18 16:30 03/18/18 16:29 02/19/18 05:56 Insulin Aspart (NovoLOG) 5 units NOVOTIAC SUBQ 02/17/18 16:50 03/19/18 07:59 02/19/18 05:57 Insulin Detemir (Levemir) 15 units DAILY SUBQ 02/18/18 09:00 03/19/18 08:59 02/18/18 10:30 Meropenem 500 mg/ Sodium Chloride 55 ml @ 110 mls/hr EVERY 12 HOURS IVPB 02/17/18 21:00 02/22/18 20:59 02/18/18 22:53 Morphine Sulfate (Morphine Sulfate) 2 mg Q4H PRN IVP Moderate Pain (Pain Scale 4-6) 02/17/18 16:30 02/23/18 16:29 Nitroglycerin (Ntg) 0.4 mg Q5M PRN SL Prn Chest Pain 02/17/18 16:30 03/18/18 14:29 Ondansetron HCl (Zofran) 4 mg Q6H PRN IVP Nausea & Vomiting 02/17/18 16:30 03/18/18 16:29 Polyethylene Glycol (Miralax) 17 gm DAILYPRN PRN ORAL Constipation 02/17/18 16:30 03/19/18 16:29 Sodium Chloride 1,000 ml @ 75 mls/hr [id number] IV 02/18/18 08:00 03/20/18 07:59 02/18/18 18:18 Tamsulosin HCl (Flomax) 0.4 mg BID ORAL 02/18/18 09:00 03/20/18 08:59 02/18/18 18:17 Temazepam (Restoril) 15 mg HSPRN PRN ORAL Insomnia 02/17/18 16:31 02/24/18 16:30 Vancomycin HCl (Vanco rx to dose) 1 ea DAILY PRN MISC per rx protocol 02/18/18 09:00 03/18/18 15:44 Item Value Date Time Bedside Blood Glucose 220 mg/dl H 02/19/18 0557 Bedside Blood Glucose 261 mg/dl H 02/18/18 2057 Bedside Blood Glucose 146 mg/dl H 02/18/18 1702 Bedside Blood Glucose 217 mg/dl H 02/18/18 1225 Bedside Blood Glucose 174 mg/dl H 02/18/18 1030 Bedside Blood Glucose 174 mg/dl H 02/18/18 0630 Reji Correa MD Feb 19, 2018 06:54
[2018-02-19] MEDS ORDERED: Lidocaine 1% Plain 30 ml INJ PRN (08:45)
[2018-02-19] MEDS ORDERED: Heparin 2000 units/Ns 1000ml INJ PRN (08:45)
[2018-02-19 08:56] VITALS: BP 147/89
[2018-02-19] MEDS ORDERED: Levemir Flexpen SUBQ SCH (09:00)
[2018-02-19] MEDS: Meropenem 500 MG in NS 55 ML IVPB SCH ×2 (09:27→20:11)
[2018-02-19] MEDS: Docusate 100mg cap ORAL SCH ×3 (09:40→17:04)
[2018-02-19] MEDS: Tamsulosin 0.4mg cap ORAL SCH ×2 (09:41→17:04)
[2018-02-19] MEDS: Allopurinol 100mg Tab ORAL SCH (09:43)
[2018-02-19] MEDS: Heparin 5000 units/ml inj SUBQ SCH ×2 (09:44→20:21)
--- NOTE | 2018-02-19 11:37 | Nephrology Progress Note ---
Assessment/Plan Problem List: (1) Acute on chronic renal failure (2) Hyperglycemia (3) Dehydration (4) UTI (urinary tract infection) (5) Urinary retention Assessment: 150 cc post Assessment Acute on Chronic Renal failure- Cr lower Hyperglycemia HyperUrecemia UTI Proteinuria and HypoAlbuminemia Plan Flomax Fluid Challenge BS control Monitor renal parameters 2D Echo pending 70% ejFx Kidney HIEN no hydro , Posterior bladder wall thickening versus debris per orders Subjective ROS Limited/Unobtainable: No Constitutional: Reports: malaise Objective Objective Last 24 Hour Vital Signs Date Time Temp Pulse Resp B/P (MAP) Pulse Ox O2 Delivery O2 Flow Rate FiO2 02/19/18 09:22 Room Air 02/19/18 08:56 98.4 102 22 147/89 (108) 98 02/19/18 04:00 98.1 94 17 135/85 (102) 97 02/19/18 00:00 98.0 85 18 110/64 (79) 97 02/18/18 21:00 Room Air 02/18/18 20:00 98.2 96 17 138/79 (98) 97 02/18/18 15:50 99.3 91 18 130/78 (95) 97 02/18/18 12:16 98.2 91 20 116/67 (83) 97 Intake and Output 02/18/18 02/19/18 19:00 07:00 Intake Total 240 ml 880 ml Balance 240 ml 880 ml Intake Oral 240 ml IV Total 880 ml # Voids 100 Laboratory Tests 02/18/18 17:40: Random Vancomycin Level 9.0 02/19/18 05:50: White Blood Count 6.4, Red Blood Count 5.03, Hemoglobin 14.6, Hematocrit 43.2, Mean Corpuscular Volume 86, Mean Corpuscular Hemoglobin 28.9, Mean Corpuscular Hemoglobin Concent 33.7, Red Cell Distribution Width 11.0L, Platelet Count 214, Mean Platelet Volume 11.5H, Neutrophils (%) (Auto) 44.6L, Lymphocytes (%) (Auto ) 32.7, Monocytes (%) (Auto) 13.1H, Eosinophils (%) (Auto) 8.4H, Basophils (%) ( Auto) 1.3, Erythrocyte Sedimentation Rate 27H, Sodium Level 136, Potassium Level 3.3L, Chloride Level 101, Carbon Dioxide Level 22, Anion Gap 13, Blood Urea Nitrogen 64H, Creatinine 3.6H, Estimat Glomerular Filtration Rate , Glucose Level 229H, Uric Acid 10.3H, Calcium Level 8.7, Phosphorus Level 3.6, Magnesium Level 2.2, Total Bilirubin 0.7, Aspartate Amino Transf (AST/SGOT) 13L , Alanine Aminotransferase (ALT/SGPT) 12, Alkaline Phosphatase 83, C-Reactive Protein, Quantitative 1.7H, Pro-B-Type Natriuretic Peptide 772H, Total Protein 7.7, Albumin 3.0L, Globulin 4.7, Albumin/Globulin Ratio 0.6L Height (Feet): 5 Height (Inches): 6.00 Weight (Pounds): 149 General Appearance: mild distress, other - weak Respiratory/Chest: decreased breath sounds Abdomen: distended Guilherme Ernandez MD Feb 19, 2018 11:37
[2018-02-19 12:30] VITALS: BP 150/122
--- NOTE | 2018-02-19 12:39 | Pulmonology Progress Note ---
Assessment/Plan Problems: (1) Bacteremia (2) Hyperglycemia (3) Acute encephalopathy (4) Stage 4 chronic kidney disease (5) Diabetes mellitus (6) mild vascular dementia Assessment/Plan repeat BC still positive continue iv fluids continue IV abx f/u blood culture results BS improving f/u electrolytes all consults reviewed. Subjective ROS Limited/Unobtainable: Yes Interval Events: somnolent Allergies: Coded Allergies: PENICILLINS (Verified Allergy, Unknown, 01/10/18) Objective Last 24 Hour Vital Signs Date Time Temp Pulse Resp B/P (MAP) Pulse Ox O2 Delivery O2 Flow Rate FiO2 02/19/18 09:22 Room Air 02/19/18 08:56 98.4 102 22 147/89 (108) 98 02/19/18 04:00 98.1 94 17 135/85 (102) 97 02/19/18 00:00 98.0 85 18 110/64 (79) 97 02/18/18 21:00 Room Air 02/18/18 20:00 98.2 96 17 138/79 (98) 97 02/18/18 15:50 99.3 91 18 130/78 (95) 97 Intake and Output 02/18/18 02/19/18 19:00 07:00 Intake Total 240 ml 880 ml Balance 240 ml 880 ml Intake Oral 240 ml IV Total 880 ml # Voids 100 General Appearance: WD/WN HEENT: normocephalic Respiratory/Chest: chest wall non-tender, lungs clear Cardiovascular: normal peripheral pulses, normal rate Abdomen: normal bowel sounds, soft, non tender Genitourinary: normal external genitalia Skin: no rash Neurologic/Psychiatric: evaluation manager II-XII grossly normal, no motor/sensory deficits Microbiology Date/Time Source Procedure Growth Status 02/17/18 05:45 Blood Blood Culture - Preliminary NO GROWTH AFTER 24 HOURS Resulted 02/17/18 05:30 Blood Blood Culture - Preliminary Resulted 02/16/18 13:15 Blood Blood Culture - Preliminary NO GROWTH AFTER 48 HOURS Resulted 02/16/18 13:10 Blood Blood Culture - Preliminary Staphylococcus Sp Coag Neg Resulted 02/17/18 14:36 Urine,Clean Catch Urine Culture - Final Escherichia Coli - Esbl Complete 02/17/18 01:00 Indwelling Cath Urine Culture - Final Escherichia Coli - Esbl Complete 02/16/18 13:20 Urine,Clean Catch Urine Culture - Final Escherichia Coli - Esbl Complete Laboratory Tests 02/18/18 17:40: Random Vancomycin Level 9.0 02/19/18 05:50: White Blood Count 6.4, Red Blood Count 5.03, Hemoglobin 14.6, Hematocrit 43.2, Mean Corpuscular Volume 86, Mean Corpuscular Hemoglobin 28.9, Mean Corpuscular Hemoglobin Concent 33.7, Red Cell Distribution Width 11.0L, Platelet Count 214, Mean Platelet Volume 11.5H, Neutrophils (%) (Auto) 44.6L, Lymphocytes (%) (Auto ) 32.7, Monocytes (%) (Auto) 13.1H, Eosinophils (%) (Auto) 8.4H, Basophils (%) ( Auto) 1.3, Erythrocyte Sedimentation Rate 27H, Sodium Level 136, Potassium Level 3.3L, Chloride Level 101, Carbon Dioxide Level 22, Anion Gap 13, Blood Urea Nitrogen 64H, Creatinine 3.6H, Estimat Glomerular Filtration Rate , Glucose Level 229H, Uric Acid 10.3H, Calcium Level 8.7, Phosphorus Level 3.6, Magnesium Level 2.2, Total Bilirubin 0.7, Aspartate Amino Transf (AST/SGOT) 13L , Alanine Aminotransferase (ALT/SGPT) 12, Alkaline Phosphatase 83, C-Reactive Protein, Quantitative 1.7H, Pro-B-Type Natriuretic Peptide 772H, Total Protein 7.7, Albumin 3.0L, Globulin 4.7, Albumin/Globulin Ratio 0.6L Current Medications Medications (Trade) Dose Ordered Sig/Venessa Route PRN Reason Start Time Stop Time Status Last Admin Dose Admin Acetaminophen (Tylenol) 650 mg Q4H PRN ORAL fever 02/17/18 16:29 03/18/18 16:28 Albuterol/ Ipratropium (Albuterol/ Ipratropium) 3 ml Q4H PRN HHN Shortness of Breath 02/17/18 16:29 02/21/18 16:28 Allopurinol (Zyloprim) 200 mg DAILY ORAL 02/18/18 09:00 03/20/18 08:59 02/19/18 09:43 Chlorhexidine Gluconate (Kelsea-Hex 2%) 1 applic DAILY@1999 TOPIC 02/19/18 20:00 03/21/18 19:59 Dextrose (Dextrose 50%) 25 ml Q30M PRN IV Hypoglycemia 02/17/18 16:29 03/19/18 16:28 Dextrose (Dextrose 50%) 50 ml Q30M PRN IV Hypoglycemia 02/17/18 16:30 03/19/18 06:59 Docusate Sodium (Colace) 100 mg THREE TIMES A DAY ORAL 02/17/18 18:00 03/19/18 17:59 02/19/18 09:40 Finasteride (Proscar) 5 mg DAILY ORAL 02/18/18 09:00 03/19/18 08:59 02/19/18 09:39 Heparin Sodium (Porcine) (Heparin 5000 units/ml) 5,000 units EVERY 12 HOURS SUBQ 02/17/18 21:00 03/18/18 20:59 02/19/18 09:44 Heparin Sodium/ Sodium Chloride (Heparin 2000 units/Ns 1000ml premix) 2,000 unit ONCE PRN INJ PICC LINE 02/19/18 08:45 02/19/18 18:00 Insulin Aspart (NovoLOG) BEFORE MEALS AND HS SUBQ 02/17/18 16:30 03/18/18 16:29 02/19/18 12:18 Insulin Aspart (NovoLOG) 5 units NOVOTIAC SUBQ 02/17/18 16:50 03/19/18 07:59 02/19/18 12:16 Insulin Detemir (Levemir) 18 units DAILY SUBQ 02/19/18 09:00 03/19/18 08:59 02/19/18 10:09 Lidocaine HCl (Xylocaine 1% 30ml) 30 ml ONCE PRN INJ PICC LINE 02/19/18 08:45 02/19/18 18:00 Meropenem 500 mg/ Sodium Chloride 55 ml @ 110 mls/hr EVERY 12 HOURS IVPB 02/17/18 21:00 02/22/18 20:59 02/19/18 09:27 Morphine Sulfate (Morphine Sulfate) 2 mg Q4H PRN IVP Moderate Pain (Pain Scale 4-6) 02/17/18 16:30 02/23/18 16:29 Nitroglycerin (Ntg) 0.4 mg Q5M PRN SL Prn Chest Pain 02/17/18 16:30 03/18/18 14:29 Ondansetron HCl (Zofran) 4 mg Q6H PRN IVP Nausea & Vomiting 02/17/18 16:30 03/18/18 16:29 Polyethylene Glycol (Miralax) 17 gm DAILYPRN PRN ORAL Constipation 02/17/18 16:30 03/19/18 16:29 Sodium Chloride 1,000 ml @ 75 mls/hr [id number] IV 02/18/18 08:00 03/20/18 07:59 02/18/18 18:18 Tamsulosin HCl (Flomax) 0.4 mg BID ORAL 02/18/18 09:00 03/20/18 08:59 02/19/18 09:41 Temazepam (Restoril) 15 mg HSPRN PRN ORAL Insomnia 02/17/18 16:31 02/24/18 16:30 Vancomycin HCl (Vanco rx to dose) 1 ea DAILY PRN MISC per rx protocol 02/18/18 09:00 03/18/18 15:44 Joyce Winters MD Feb 19, 2018 12:39
[2018-02-19] MEDS ORDERED: Morphine Sulfate 4mg/ml Inj (IV/IM USE ONLY) IM SCH (13:01)
--- NOTE | 2018-02-19 13:35 | Infectious Diseases Prog Note ---
Assessment/Plan Assessment/Plan ASSESSMENT: The patient is an 82-year-old male with +ve blood cx ( 02/17) 1/2 : CoNS Contaminant +ve blood Cx ( 02/17) 1/2 GNR Leukocytosis, SP UTI. UCX ESBL E. coli. Ultrasound of kidney on US kid : no hydroureter doubt prostatitis.: PSA : nl EF: 70% JENNY / CKD. Cr improving Bilateral hearing loss Dementia BPH Hypertension History of hydronephrosis Diabetes CKD Allergic to penicillin? (severity of reaction), the patient tolerated Carbapenem PLAN: Cont pt on on IV meropenem day # 3 , upon DC will change to Invnaz to complete the course DC IV Vanco d# 2 Monitor CBC Monitor BMP. Monitor cultures (blood) Nephrology follow up not ready for DC yet, await final blood CX Subjective Allergies: Coded Allergies: PENICILLINS (Verified Allergy, Unknown, 01/10/18) Subjective Afebrile Comfortable Objective Vital Signs Last 24 Hour Vital Signs Date Time Temp Pulse Resp B/P (MAP) Pulse Ox O2 Delivery O2 Flow Rate FiO2 02/19/18 12:30 97.5 90 18 150/122 (131) 97 02/19/18 09:22 Room Air 02/19/18 08:56 98.4 102 22 147/89 (108) 98 02/19/18 04:00 98.1 94 17 135/85 (102) 97 02/19/18 00:00 98.0 85 18 110/64 (79) 97 02/18/18 21:00 Room Air 02/18/18 20:00 98.2 96 17 138/79 (98) 97 02/18/18 15:50 99.3 91 18 130/78 (95) 97 Height (Feet): 5 Height (Inches): 6.00 Weight (Pounds): 149 HEENT: anicteric Respiratory/Chest: no respiratory distress Cardiovascular: regular rhythm Abdomen: normal bowel sounds Microbiology Date/Time Source Procedure Growth Status 02/17/18 05:45 Blood Blood Culture - Preliminary NO GROWTH AFTER 24 HOURS Resulted 02/17/18 05:30 Blood Blood Culture - Preliminary Resulted 02/17/18 14:36 Urine,Clean Catch Urine Culture - Final Escherichia Coli - Esbl Complete 02/17/18 01:00 Indwelling Cath Urine Culture - Final Escherichia Coli - Esbl Complete Laboratory Tests Test 02/18/18 17:40 02/19/18 05:50 Random Vancomycin Level 9.0 ug/mL White Blood Count 6.4 K/UL (4.8-10.8) Red Blood Count 5.03 M/UL (4.70-6.10) Hemoglobin 14.6 G/DL (14.2-18.0) Hematocrit 43.2 % (42.0-52.0) Mean Corpuscular Volume 86 FL (80-99) Mean Corpuscular Hemoglobin 28.9 PG (27.0-31.0) Mean Corpuscular Hemoglobin Concent 33.7 G/DL (32.0-36.0) Red Cell Distribution Width 11.0 % (11.6-14.8) L Platelet Count 214 K/UL (150-450) Mean Platelet Volume 11.5 FL (6.5-10.1) H Neutrophils (%) (Auto) 44.6 % (45.0-75.0) L Lymphocytes (%) (Auto) 32.7 % (20.0-45.0) Monocytes (%) (Auto) 13.1 % (1.0-10.0) H Eosinophils (%) (Auto) 8.4 % (0.0-3.0) H Basophils (%) (Auto) 1.3 % (0.0-2.0) Erythrocyte Sedimentation Rate 27 MM/HR (0-20) H Sodium Level 136 MMOL/L (136-145) Potassium Level 3.3 MMOL/L (3.5-5.1) L Chloride Level 101 MMOL/L (98-107) Carbon Dioxide Level 22 MMOL/L (21-32) Anion Gap 13 mmol/L (5-15) Blood Urea Nitrogen 64 mg/dL (7-18) H Creatinine 3.6 MG/DL (0.55-1.30) H Estimat Glomerular Filtration Rate mL/min (>60) Glucose Level 229 MG/DL (74-106) H Uric Acid 10.3 MG/DL (2.6-7.2) H Calcium Level 8.7 MG/DL (8.5-10.1) Phosphorus Level 3.6 MG/DL (2.5-4.9) Magnesium Level 2.2 MG/DL (1.8-2.4) Total Bilirubin 0.7 MG/DL (0.2-1.0) Aspartate Amino Transf (AST/SGOT) 13 U/L (15-37) L Alanine Aminotransferase (ALT/SGPT) 12 U/L (12-78) Alkaline Phosphatase 83 U/L (46-116) C-Reactive Protein, Quantitative 1.7 mg/dL (0.00-0.90) H Pro-B-Type Natriuretic Peptide 772 pg/mL (0-125) H Total Protein 7.7 G/DL (6.4-8.2) Albumin 3.0 G/DL (3.4-5.0) L Globulin 4.7 g/dL Albumin/Globulin Ratio 0.6 (1.0-2.7) L Current Medications Medications (Trade) Dose Ordered Sig/Venessa Route PRN Reason Start Time Stop Time Status Last Admin Dose Admin Acetaminophen (Tylenol) 650 mg Q4H PRN ORAL fever 02/17/18 16:29 03/18/18 16:28 Albuterol/ Ipratropium (Albuterol/ Ipratropium) 3 ml Q4H PRN HHN Shortness of Breath 02/17/18 16:29 02/21/18 16:28 Allopurinol (Zyloprim) 200 mg DAILY ORAL 02/18/18 09:00 03/20/18 08:59 02/19/18 09:43 Chlorhexidine Gluconate (Kelsea-Hex 2%) 1 applic DAILY@1999 TOPIC 02/19/18 20:00 03/21/18 19:59 Dextrose (Dextrose 50%) 25 ml Q30M PRN IV Hypoglycemia 02/17/18 16:29 03/19/18 16:28 Dextrose (Dextrose 50%) 50 ml Q30M PRN IV Hypoglycemia 02/17/18 16:30 03/19/18 06:59 Docusate Sodium (Colace) 100 mg THREE TIMES A DAY ORAL 02/17/18 18:00 03/19/18 17:59 02/19/18 09:40 Finasteride (Proscar) 5 mg DAILY ORAL 02/18/18 09:00 03/19/18 08:59 02/19/18 09:39 Heparin Sodium (Porcine) (Heparin 5000 units/ml) 5,000 units EVERY 12 HOURS SUBQ 02/17/18 21:00 03/18/18 20:59 02/19/18 09:44 Heparin Sodium/ Sodium Chloride (Heparin 2000 units/Ns 1000ml premix) 2,000 unit ONCE PRN INJ PICC LINE 02/19/18 08:45 02/19/18 18:00 Insulin Aspart (NovoLOG) BEFORE MEALS AND HS SUBQ 02/17/18 16:30 03/18/18 16:29 02/19/18 12:18 Insulin Aspart (NovoLOG) 5 units NOVOTIAC SUBQ 02/17/18 16:50 03/19/18 07:59 02/19/18 12:16 Insulin Detemir (Levemir) 18 units DAILY SUBQ 02/19/18 09:00 03/19/18 08:59 02/19/18 10:09 Lidocaine HCl (Xylocaine 1% 30ml) 30 ml ONCE PRN INJ PICC LINE 02/19/18 08:45 02/19/18 18:00 Meropenem 500 mg/ Sodium Chloride 55 ml @ 110 mls/hr EVERY 12 HOURS IVPB 02/17/18 21:00 02/22/18 20:59 02/19/18 09:27 Morphine Sulfate (Morphine Sulfate) 2 mg ONCE IM 02/19/18 13:01 02/19/18 14:01 Morphine Sulfate (Morphine Sulfate) 2 mg Q4H PRN IVP Moderate Pain (Pain Scale 4-6) 02/17/18 16:30 02/23/18 16:29 Nitroglycerin (Ntg) 0.4 mg Q5M PRN SL Prn Chest Pain 02/17/18 16:30 03/18/18 14:29 Ondansetron HCl (Zofran) 4 mg Q6H PRN IVP Nausea & Vomiting 02/17/18 16:30 03/18/18 16:29 Polyethylene Glycol (Miralax) 17 gm DAILYPRN PRN ORAL Constipation 02/17/18 16:30 03/19/18 16:29 Sodium Chloride 1,000 ml @ 75 mls/hr [id number] IV 02/18/18 08:00 03/20/18 07:59 02/18/18 18:18 Tamsulosin HCl (Flomax) 0.4 mg BID ORAL 02/18/18 09:00 03/20/18 08:59 02/19/18 09:41 Temazepam (Restoril) 15 mg HSPRN PRN ORAL Insomnia 02/17/18 16:31 02/24/18 16:30 Vancomycin HCl (Vanco rx to dose) 1 ea DAILY PRN MISC per rx protocol 02/18/18 09:00 03/18/18 15:44 Deshaun Cheung MD Feb 19, 2018 13:35
--- NOTE | 2018-02-19 14:28 | General Progress Note ---
Assessment/Plan Problem List: (1) Diabetes mellitus ICD Codes: E11.9 - Type 2 diabetes mellitus without complications SNOMED: 73764061 (2) Acute on chronic renal failure ICD Codes: N17.9 - Acute kidney failure, unspecified; N18.9 - Chronic kidney disease, unspecified SNOMED: 864794403 (3) UTI (urinary tract infection) ICD Codes: N39.0 - Urinary tract infection, site not specified SNOMED: 04676538 (4) Hyperglycemia ICD Codes: R73.9 - Hyperglycemia, unspecified SNOMED: 41828882 (5) Dehydration ICD Codes: E86.0 - Dehydration SNOMED: 52998260 Status: stable, progressing Assessment/Plan ot pt diet abx cbc bmp am dc plan snf Subjective Constitutional: Reports: weakness Allergies: Coded Allergies: PENICILLINS (Verified Allergy, Unknown, 01/10/18) All Systems: reviewed and negative except above Subjective sleepy calm Objective Last 24 Hour Vital Signs Date Time Temp Pulse Resp B/P (MAP) Pulse Ox O2 Delivery O2 Flow Rate FiO2 02/19/18 12:30 97.5 90 18 150/122 (131) 97 02/19/18 09:22 Room Air 02/19/18 08:56 98.4 102 22 147/89 (108) 98 02/19/18 04:00 98.1 94 17 135/85 (102) 97 02/19/18 00:00 98.0 85 18 110/64 (79) 97 02/18/18 21:00 Room Air 02/18/18 20:00 98.2 96 17 138/79 (98) 97 02/18/18 15:50 99.3 91 18 130/78 (95) 97 Intake and Output 02/18/18 02/19/18 19:00 07:00 Intake Total 240 ml 880 ml Balance 240 ml 880 ml Intake Oral 240 ml IV Total 880 ml # Voids 100 Laboratory Tests 02/18/18 17:40: Random Vancomycin Level 9.0 02/19/18 05:50: White Blood Count 6.4, Red Blood Count 5.03, Hemoglobin 14.6, Hematocrit 43.2, Mean Corpuscular Volume 86, Mean Corpuscular Hemoglobin 28.9, Mean Corpuscular Hemoglobin Concent 33.7, Red Cell Distribution Width 11.0L, Platelet Count 214, Mean Platelet Volume 11.5H, Neutrophils (%) (Auto) 44.6L, Lymphocytes (%) (Auto ) 32.7, Monocytes (%) (Auto) 13.1H, Eosinophils (%) (Auto) 8.4H, Basophils (%) ( Auto) 1.3, Erythrocyte Sedimentation Rate 27H, Sodium Level 136, Potassium Level 3.3L, Chloride Level 101, Carbon Dioxide Level 22, Anion Gap 13, Blood Urea Nitrogen 64H, Creatinine 3.6H, Estimat Glomerular Filtration Rate , Glucose Level 229H, Uric Acid 10.3H, Calcium Level 8.7, Phosphorus Level 3.6, Magnesium Level 2.2, Total Bilirubin 0.7, Aspartate Amino Transf (AST/SGOT) 13L , Alanine Aminotransferase (ALT/SGPT) 12, Alkaline Phosphatase 83, C-Reactive Protein, Quantitative 1.7H, Pro-B-Type Natriuretic Peptide 772H, Total Protein 7.7, Albumin 3.0L, Globulin 4.7, Albumin/Globulin Ratio 0.6L Height (Feet): 5 Height (Inches): 6.00 Weight (Pounds): 149 General Appearance: lethargic, confused EENT: normal ENT inspection Neck: normal alignment Cardiovascular: normal peripheral pulses, normal rate, regular rhythm Respiratory/Chest: chest wall non-tender, lungs clear, normal breath sounds Abdomen: normal bowel sounds, non tender, soft Extremities: normal inspection Edema: no edema noted Arm (L), no edema noted Arm (R), no edema noted Leg (L), no edema noted Leg (R), no edema noted Pedal (L), no edema noted Pedal (R), no edema noted Generalized Neurologic: motor weakness Skin: normal pigmentation, warm/dry Kevon Viera DO Feb 19, 2018 14:28
[2018-02-19] MEDS ORDERED: 1/2 NS 1000ml IV ONE (16:06)
[2018-02-19] MEDS ORDERED: Tubing IV Secondary IV ONE (16:06)
[2018-02-19 16:30] VITALS: BP 155/85
--- NOTE | 2018-02-19 16:35 | Diagnostic Imaging Report ---
. Indications: Needs long-term IV access Technique: Ultrasound confirms patent compressible right brachial vein. Total sterile technique, including sterile probe cover and sterile gel, hat, mask, sterile gown, large sterile drape, and preparation with 2% chlorhexidine utilized. Local anesthesia with 1% lidocaine. Under real-time ultrasound guidance, puncture brachial vein using 21-gauge needle, documented and archived, passage 0.018 guidewire under direct fluoroscopy, which was used to determine appropriate catheter length, exchange for 5 Turkmen peel-away sheath. 5 Turkmen Bard dual-lumen power PICC cut to 46 cm. It was inserted through the peel-away sheath. Peel-away sheath and guidewire removed. Catheter fixed to the skin. Both catheter ports aspirated and flushed. Patient tolerated procedure well, without immediate complication. Digital radiograph documents satisfactory catheter tip position, at the cavoatrial junction. Total fluoroscopy time 6.2 minutes. Total dose area product 0.7 dGycm2 Total number of images: 1 Impression: Successful placement of right arm PICC under sonographic and fluoroscopic guidance, as described above.
[2018-02-19] MEDS: Morphine Sulfate 2mg/ml Inj IVP PRN (17:05)
[2018-02-19 20:00] VITALS: BP 147/96
[2018-02-19] MEDS: Dyna-Hex 2% Top Sol 2oz TOPIC SCH (20:10)
[2018-02-20] VITALS: BP 151/96
[2018-02-20 04:00] VITALS: BP 156/95
[2018-02-20] MEDS: NovoLOG Insulin Flexpen SUBQ SCH ×7 (06:02→20:35)
[2018-02-20 06:47] LABS: ALANINE AMINOTRANSFERASE 10 U/L (12-78); ALBUMIN 2.8 G/DL (3.4-5.0); ALBUMIN/GLOBULIN RATIO 0.6 (1.0-2.7); ALKALINE PHOSPHATASE 86 U/L (46-116); ANION GAP 10 mmol/L (5-15); ASPARTATE AMINO TRANSFERASE 11 U/L (15-37); BILIRUBIN,TOTAL 0.5 MG/DL (0.2-1.0); BLOOD UREA NITROGEN 55 mg/dL (7-18); CALCIUM 8.9 MG/DL (8.5-10.1); CARBON DIOXIDE 23 MMOL/L (21-32); CHLORIDE 103 MMOL/L (98-107); CREATININE 3.2 MG/DL (0.55-1.30); PHOSPHORUS 3.7 MG/DL (2.5-4.9); POTASSIUM 3.8 MMOL/L (3.5-5.1); SODIUM 136 MMOL/L (136-145)
[2018-02-20 08:14] VITALS: BP 146/86
--- NOTE | 2018-02-20 08:15 | General Progress Note ---
Assessment/Plan Problem List: (1) Stage 4 chronic kidney disease ICD Codes: N18.4 - Chronic kidney disease, stage 4 (severe) SNOMED: 049219201 (2) Diabetes mellitus ICD Codes: E11.9 - Type 2 diabetes mellitus without complications SNOMED: 59231955 (3) Hyperglycemia ICD Codes: R73.9 - Hyperglycemia, unspecified SNOMED: 72398387 Assessment/Plan increase Levemir to 24 units daily increase Novolog to 8 units ac tid + NSSI ac / hs Subjective Allergies: Coded Allergies: PENICILLINS (Verified Allergy, Unknown, 01/10/18) All Systems: reviewed and negative except above Subjective events noted Objective Last 24 Hour Vital Signs Date Time Temp Pulse Resp B/P (MAP) Pulse Ox O2 Delivery O2 Flow Rate FiO2 02/20/18 04:00 98.1 91 17 156/95 (115) 96 02/20/18 00:00 98.1 97 17 151/96 (114) 97 02/19/18 21:00 Room Air 02/19/18 20:00 97.7 100 16 147/96 (113) 96 02/19/18 17:35 97.2 02/19/18 16:30 97.2 98 20 155/85 (108) 97 02/19/18 12:30 97.5 90 18 150/122 (131) 97 02/19/18 09:22 Room Air 02/19/18 08:56 98.4 102 22 147/89 (108) 98 Intake and Output 02/19/18 02/20/18 19:00 07:00 Intake Total 773 ml 120 ml Output Total 350 ml Balance 773 ml -230 ml Intake Oral 698 ml 120 ml IV Total 75 ml Output Urine Total 350 ml # Voids 1 # Bowel Movements 1 Laboratory Tests 02/20/18 05:00: White Blood Count [Pending], Red Blood Count [Pending], Hemoglobin [Pending], Hematocrit [Pending], Mean Corpuscular Volume [Pending], Mean Corpuscular Hemoglobin [Pending], Mean Corpuscular Hemoglobin Concent [Pending], Red Cell Distribution Width [Pending], Platelet Count [Pending], Mean Platelet Volume [ Pending], Neutrophils (%) (Auto) [Pending], Lymphocytes (%) (Auto) [Pending], Monocytes (%) (Auto) [Pending], Eosinophils (%) (Auto) [Pending], Basophils (%) (Auto) [Pending], Erythrocyte Sedimentation Rate [Pending], Sodium Level 136, Potassium Level 3.8, Chloride Level 103, Carbon Dioxide Level 23, Anion Gap 10, Blood Urea Nitrogen 55H, Creatinine 3.2H, Estimat Glomerular Filtration Rate , Glucose Level 261H, Calcium Level 8.9, Phosphorus Level 3.7, Magnesium Level 2.3 , Total Bilirubin 0.5, Aspartate Amino Transf (AST/SGOT) 11L, Alanine Aminotransferase (ALT/SGPT) 10L, Alkaline Phosphatase 86, C-Reactive Protein, Quantitative 1.2H, Total Protein 7.4, Albumin 2.8L, Globulin 4.6, Albumin/ Globulin Ratio 0.6L Height (Feet): 5 Height (Inches): 6.00 Weight (Pounds): 149 General Appearance: no apparent distress Neck: normal alignment Cardiovascular: normal rate Respiratory/Chest: normal breath sounds Abdomen: normal bowel sounds Objective Current Medications Medications (Trade) Dose Ordered Sig/Venessa Route PRN Reason Start Time Stop Time Status Last Admin Dose Admin Acetaminophen (Tylenol) 650 mg Q4H PRN ORAL fever 02/17/18 16:29 03/18/18 16:28 Albuterol/ Ipratropium (Albuterol/ Ipratropium) 3 ml Q4H PRN HHN Shortness of Breath 02/17/18 16:29 02/21/18 16:28 Allopurinol (Zyloprim) 200 mg DAILY ORAL 02/18/18 09:00 03/20/18 08:59 02/19/18 09:43 Chlorhexidine Gluconate (Kelsea-Hex 2%) 1 applic DAILY@1999 TOPIC 02/19/18 20:00 03/21/18 19:59 02/19/18 20:10 Dextrose (Dextrose 50%) 25 ml Q30M PRN IV Hypoglycemia 02/17/18 16:29 03/19/18 16:28 Dextrose (Dextrose 50%) 50 ml Q30M PRN IV Hypoglycemia 02/17/18 16:30 03/19/18 06:59 Docusate Sodium (Colace) 100 mg THREE TIMES A DAY ORAL 02/17/18 18:00 03/19/18 17:59 02/19/18 17:04 Finasteride (Proscar) 5 mg DAILY ORAL 02/18/18 09:00 03/19/18 08:59 02/19/18 09:39 Heparin Sodium (Porcine) (Heparin 5000 units/ml) 5,000 units EVERY 12 HOURS SUBQ 02/17/18 21:00 03/18/18 20:59 02/19/18 20:21 Insulin Aspart (NovoLOG) BEFORE MEALS AND HS SUBQ 02/17/18 16:30 03/18/18 16:29 02/20/18 06:02 Insulin Aspart (NovoLOG) 5 units NOVOTIAC SUBQ 02/17/18 16:50 03/19/18 07:59 02/20/18 06:02 Insulin Detemir (Levemir) 18 units DAILY SUBQ 02/19/18 09:00 03/19/18 08:59 02/19/18 10:09 Meropenem 500 mg/ Sodium Chloride 55 ml @ 110 mls/hr EVERY 12 HOURS IVPB 02/17/18 21:00 02/22/18 20:59 02/19/18 20:11 Morphine Sulfate (Morphine Sulfate) 2 mg Q4H PRN IVP Moderate Pain (Pain Scale 4-6) 02/17/18 16:30 02/23/18 16:29 02/19/18 17:05 Nitroglycerin (Ntg) 0.4 mg Q5M PRN SL Prn Chest Pain 02/17/18 16:30 03/18/18 14:29 Ondansetron HCl (Zofran) 4 mg Q6H PRN IVP Nausea & Vomiting 02/17/18 16:30 03/18/18 16:29 Polyethylene Glycol (Miralax) 17 gm DAILYPRN PRN ORAL Constipation 02/17/18 16:30 03/19/18 16:29 Sodium Chloride 1,000 ml @ 75 mls/hr [id number] IV 02/18/18 08:00 03/20/18 07:59 02/19/18 16:54 Tamsulosin HCl (Flomax) 0.4 mg BID ORAL 02/18/18 09:00 03/20/18 08:59 02/19/18 17:04 Temazepam (Restoril) 15 mg HSPRN PRN ORAL Insomnia 02/17/18 16:31 02/24/18 16:30 Item Value Date Time Bedside Blood Glucose 230 mg/dl H 02/20/18 0630 Bedside Blood Glucose 302 mg/dl H 02/19/18 2100 Bedside Blood Glucose 378 mg/dl H 02/19/18 1658 Bedside Blood Glucose 321 mg/dl H 02/19/18 1218 Bedside Blood Glucose 220 mg/dl H 02/19/18 1009 Bedside Blood Glucose 220 mg/dl H 02/19/18 0557 Reji Correa MD Feb 20, 2018 08:15
[2018-02-20] MEDS: Meropenem 500 MG in NS 55 ML IVPB SCH ×2 (09:39→20:34)
[2018-02-20] MEDS: Docusate 100mg cap ORAL SCH ×3 (09:39→17:06)
[2018-02-20] MEDS: Allopurinol 100mg Tab ORAL SCH (09:40)
[2018-02-20] MEDS: Tamsulosin 0.4mg cap ORAL SCH ×2 (09:40→17:06)
[2018-02-20] MEDS: Heparin 5000 units/ml inj SUBQ SCH ×2 (09:43→20:34)
[2018-02-20] MEDS: Levemir Flexpen SUBQ SCH (09:54)
[2018-02-20 09:59] LABS: BASOPHILS % (AUTO) 0.9 % (0.0-2.0); EOSINOPHILS % (AUTO) 6.6 % (0.0-3.0); HEMATOCRIT 42.7 % (42.0-52.0); HEMOGLOBIN 14.5 G/DL (14.2-18.0); LYMPHOCYTES % (AUTO) 29.8 % (20.0-45.0); MEAN CORPUSCULAR VOLUME 86 FL (80-99); MONOCYTES % (AUTO) 13.2 % (1.0-10.0); NEUTROPHILS % (AUTO) 49.6 % (45.0-75.0); PLATELET COUNT 179 K/UL (150-450); RED BLOOD COUNT 4.97 M/UL (4.70-6.10); RED CELL DISTRIBUTION WIDTH 11.3 % (11.6-14.8); WHITE BLOOD COUNT 9.5 K/UL (4.8-10.8)
[2018-02-20 11:57] VITALS: BP 128/70
--- NOTE | 2018-02-20 12:00 | General Progress Note ---
Assessment/Plan Problem List: (1) Diabetes mellitus ICD Codes: E11.9 - Type 2 diabetes mellitus without complications SNOMED: 90764260 (2) Acute on chronic renal failure ICD Codes: N17.9 - Acute kidney failure, unspecified; N18.9 - Chronic kidney disease, unspecified SNOMED: 255938449 (3) UTI (urinary tract infection) ICD Codes: N39.0 - Urinary tract infection, site not specified SNOMED: 70986469 (4) Hyperglycemia ICD Codes: R73.9 - Hyperglycemia, unspecified SNOMED: 19968855 (5) Dehydration ICD Codes: E86.0 - Dehydration SNOMED: 74326179 Status: stable, progressing Assessment/Plan ot pt diet abx cbc bmp am dc plan snf Subjective Constitutional: Reports: weakness Allergies: Coded Allergies: PENICILLINS (Verified Allergy, Unknown, 01/10/18) All Systems: reviewed and negative except above Subjective sleepy calm Objective Last 24 Hour Vital Signs Date Time Temp Pulse Resp B/P (MAP) Pulse Ox O2 Delivery O2 Flow Rate FiO2 02/20/18 11:57 98.7 86 17 128/70 (89) 96 02/20/18 09:10 Room Air 02/20/18 08:14 98.7 99 17 146/86 (106) 96 02/20/18 04:00 98.1 91 17 156/95 (115) 96 02/20/18 00:00 98.1 97 17 151/96 (114) 97 02/19/18 21:00 Room Air 02/19/18 20:00 97.7 100 16 147/96 (113) 96 02/19/18 17:35 97.2 02/19/18 16:30 97.2 98 20 155/85 (108) 97 02/19/18 12:30 97.5 90 18 150/122 (131) 97 Intake and Output 02/19/18 02/20/18 19:00 07:00 Intake Total 773 ml 120 ml Output Total 350 ml Balance 773 ml -230 ml Intake Oral 698 ml 120 ml IV Total 75 ml Output Urine Total 350 ml # Voids 1 # Bowel Movements 1 Laboratory Tests 02/20/18 05:00: White Blood Count 9.5, Red Blood Count 4.97, Hemoglobin 14.5, Hematocrit 42.7, Mean Corpuscular Volume 86, Mean Corpuscular Hemoglobin 29.1, Mean Corpuscular Hemoglobin Concent 33.9, Red Cell Distribution Width 11.3L, Platelet Count 179, Mean Platelet Volume 10.8H, Neutrophils (%) (Auto) 49.6, Lymphocytes (%) (Auto) 29.8, Monocytes (%) (Auto) 13.2H, Eosinophils (%) (Auto) 6.6H, Basophils (%) ( Auto) 0.9, Erythrocyte Sedimentation Rate 27H, Sodium Level 136, Potassium Level 3.8, Chloride Level 103, Carbon Dioxide Level 23, Anion Gap 10, Blood Urea Nitrogen 55H, Creatinine 3.2H, Estimat Glomerular Filtration Rate , Glucose Level 261H, Calcium Level 8.9, Phosphorus Level 3.7, Magnesium Level 2.3 , Total Bilirubin 0.5, Aspartate Amino Transf (AST/SGOT) 11L, Alanine Aminotransferase (ALT/SGPT) 10L, Alkaline Phosphatase 86, C-Reactive Protein, Quantitative 1.2H, Total Protein 7.4, Albumin 2.8L, Globulin 4.6, Albumin/ Globulin Ratio 0.6L Height (Feet): 5 Height (Inches): 6.00 Weight (Pounds): 149 General Appearance: lethargic EENT: normal ENT inspection Neck: normal alignment Cardiovascular: normal peripheral pulses, normal rate, regular rhythm Respiratory/Chest: chest wall non-tender, lungs clear, normal breath sounds Abdomen: normal bowel sounds, non tender, soft Extremities: normal inspection Edema: no edema noted Arm (L), no edema noted Arm (R), no edema noted Leg (L), no edema noted Leg (R), no edema noted Pedal (L), no edema noted Pedal (R), no edema noted Generalized Neurologic: motor weakness Skin: normal pigmentation, warm/dry Kevon Viera DO Feb 20, 2018 12:00
--- NOTE | 2018-02-20 12:21 | Nephrology Progress Note ---
Assessment/Plan Problem List: (1) Acute on chronic renal failure (2) Hyperglycemia (3) Dehydration (4) UTI (urinary tract infection) (5) Urinary retention Assessment: 150 cc post Assessment Acute on Chronic Renal failure- Cr lower 4.9 to 3.2 Hyperglycemia HyperUrecemia UTI Proteinuria and HypoAlbuminemia Plan Flomax Fluid Challenge BS control Monitor renal parameters 2D Echo pending 70% ejFx Kidney HIEN no hydro , Posterior bladder wall thickening versus debris per orders Subjective ROS Limited/Unobtainable: No Constitutional: Reports: malaise Objective Objective Last 24 Hour Vital Signs Date Time Temp Pulse Resp B/P (MAP) Pulse Ox O2 Delivery O2 Flow Rate FiO2 02/20/18 11:57 98.7 86 17 128/70 (89) 96 02/20/18 09:10 Room Air 02/20/18 08:14 98.7 99 17 146/86 (106) 96 02/20/18 04:00 98.1 91 17 156/95 (115) 96 02/20/18 00:00 98.1 97 17 151/96 (114) 97 02/19/18 21:00 Room Air 02/19/18 20:00 97.7 100 16 147/96 (113) 96 02/19/18 17:35 97.2 02/19/18 16:30 97.2 98 20 155/85 (108) 97 02/19/18 12:30 97.5 90 18 150/122 (131) 97 Current Medications Medications (Trade) Dose Ordered Sig/Venessa Route PRN Reason Start Time Stop Time Status Last Admin Dose Admin Acetaminophen (Tylenol) 650 mg Q4H PRN ORAL fever 02/17/18 16:29 03/18/18 16:28 Albuterol/ Ipratropium (Albuterol/ Ipratropium) 3 ml Q4H PRN HHN Shortness of Breath 02/17/18 16:29 02/21/18 16:28 Allopurinol (Zyloprim) 200 mg DAILY ORAL 02/18/18 09:00 03/20/18 08:59 02/20/18 09:40 Chlorhexidine Gluconate (Kelsea-Hex 2%) 1 applic DAILY@2000 TOPIC 02/19/18 20:00 03/21/18 19:59 02/19/18 20:10 Dextrose (Dextrose 50%) 25 ml Q30M PRN IV Hypoglycemia 02/17/18 16:29 03/19/18 16:28 Dextrose (Dextrose 50%) 50 ml Q30M PRN IV Hypoglycemia 02/17/18 16:30 03/19/18 06:59 Docusate Sodium (Colace) 100 mg THREE TIMES A DAY ORAL 02/17/18 18:00 03/19/18 17:59 02/20/18 12:04 Finasteride (Proscar) 5 mg DAILY ORAL 02/18/18 09:00 03/19/18 08:59 02/20/18 09:39 Heparin Sodium (Porcine) (Heparin 5000 units/ml) 5,000 units EVERY 12 HOURS SUBQ 02/17/18 21:00 03/18/18 20:59 02/20/18 09:43 Insulin Aspart (NovoLOG) BEFORE MEALS AND HS SUBQ 02/17/18 16:30 03/18/18 16:29 02/20/18 11:56 Insulin Aspart (NovoLOG) 8 units NOVOTIAC SUBQ 02/20/18 11:50 03/19/18 07:59 02/20/18 11:55 Insulin Detemir (Levemir) 24 units DAILY SUBQ 02/20/18 09:00 03/19/18 08:59 02/20/18 09:54 Meropenem 500 mg/ Sodium Chloride 55 ml @ 110 mls/hr EVERY 12 HOURS IVPB 02/17/18 21:00 02/22/18 20:59 02/20/18 09:39 Morphine Sulfate (Morphine Sulfate) 2 mg Q4H PRN IVP Moderate Pain (Pain Scale 4-6) 02/17/18 16:30 02/23/18 16:29 02/19/18 17:05 Nitroglycerin (Ntg) 0.4 mg Q5M PRN SL Prn Chest Pain 02/17/18 16:30 03/18/18 14:29 Ondansetron HCl (Zofran) 4 mg Q6H PRN IVP Nausea & Vomiting 02/17/18 16:30 03/18/18 16:29 Polyethylene Glycol (Miralax) 17 gm DAILYPRN PRN ORAL Constipation 02/17/18 16:30 03/19/18 16:29 Sodium Chloride 1,000 ml @ 75 mls/hr [id number] IV 02/18/18 08:00 03/20/18 07:59 02/20/18 09:40 Tamsulosin HCl (Flomax) 0.4 mg BID ORAL 02/18/18 09:00 03/20/18 08:59 02/20/18 09:40 Temazepam (Restoril) 15 mg HSPRN PRN ORAL Insomnia 02/17/18 16:31 02/24/18 16:30 Intake and Output 02/19/18 02/20/18 19:00 07:00 Intake Total 773 ml 120 ml Output Total 350 ml Balance 773 ml -230 ml Intake Oral 698 ml 120 ml IV Total 75 ml Output Urine Total 350 ml # Voids 1 # Bowel Movements 1 Laboratory Tests 02/20/18 05:00: White Blood Count 9.5, Red Blood Count 4.97, Hemoglobin 14.5, Hematocrit 42.7, Mean Corpuscular Volume 86, Mean Corpuscular Hemoglobin 29.1, Mean Corpuscular Hemoglobin Concent 33.9, Red Cell Distribution Width 11.3L, Platelet Count 179, Mean Platelet Volume 10.8H, Neutrophils (%) (Auto) 49.6, Lymphocytes (%) (Auto) 29.8, Monocytes (%) (Auto) 13.2H, Eosinophils (%) (Auto) 6.6H, Basophils (%) ( Auto) 0.9, Erythrocyte Sedimentation Rate 27H, Sodium Level 136, Potassium Level 3.8, Chloride Level 103, Carbon Dioxide Level 23, Anion Gap 10, Blood Urea Nitrogen 55H, Creatinine 3.2H, Estimat Glomerular Filtration Rate , Glucose Level 261H, Calcium Level 8.9, Phosphorus Level 3.7, Magnesium Level 2.3 , Total Bilirubin 0.5, Aspartate Amino Transf (AST/SGOT) 11L, Alanine Aminotransferase (ALT/SGPT) 10L, Alkaline Phosphatase 86, C-Reactive Protein, Quantitative 1.2H, Total Protein 7.4, Albumin 2.8L, Globulin 4.6, Albumin/ Globulin Ratio 0.6L Height (Feet): 5 Height (Inches): 6.00 Weight (Pounds): 149 General Appearance: no apparent distress Cardiovascular: tachycardia Abdomen: distended Objective no change Guilherme Ernandez MD Feb 20, 2018 12:21
--- NOTE | 2018-02-20 12:40 | Pulmonology Progress Note ---
Assessment/Plan Problems: (1) Bacteremia (2) Hyperglycemia (3) Acute encephalopathy (4) Stage 4 chronic kidney disease (5) Diabetes mellitus (6) mild vascular dementia Assessment/Plan doing better continue iv fluids continue IV abx f/u blood culture results BS improving f/u electrolytes all consults reviewed. Subjective ROS Limited/Unobtainable: No Constitutional: Reports: no symptoms HEENT: Repors: no symptoms Allergies: Coded Allergies: PENICILLINS (Verified Allergy, Unknown, 01/10/18) Objective Last 24 Hour Vital Signs Date Time Temp Pulse Resp B/P (MAP) Pulse Ox O2 Delivery O2 Flow Rate FiO2 02/20/18 11:57 98.7 86 17 128/70 (89) 96 02/20/18 09:10 Room Air 02/20/18 08:14 98.7 99 17 146/86 (106) 96 02/20/18 04:00 98.1 91 17 156/95 (115) 96 02/20/18 00:00 98.1 97 17 151/96 (114) 97 02/19/18 21:00 Room Air 02/19/18 20:00 97.7 100 16 147/96 (113) 96 02/19/18 17:35 97.2 02/19/18 16:30 97.2 98 20 155/85 (108) 97 Intake and Output 02/19/18 02/20/18 19:00 07:00 Intake Total 773 ml 120 ml Output Total 350 ml Balance 773 ml -230 ml Intake Oral 698 ml 120 ml IV Total 75 ml Output Urine Total 350 ml # Voids 1 # Bowel Movements 1 Objective General Appearance: WD/WN HEENT: normocephalic Respiratory/Chest: chest wall non-tender, lungs clear Cardiovascular: normal peripheral pulses, normal rate Abdomen: normal bowel sounds, soft, non tender Genitourinary: normal external genitalia Skin: no rash 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, no motor/sensory deficits Microbiology Date/Time Source Procedure Growth Status 02/18/18 17:08 Blood Blood Culture - Preliminary NO GROWTH AFTER 24 HOURS Resulted 02/18/18 17:00 Blood Blood Culture - Preliminary NO GROWTH AFTER 24 HOURS Resulted 02/17/18 14:36 Urine,Clean Catch Urine Culture - Final Escherichia Coli - Esbl Complete Laboratory Tests 02/20/18 05:00: White Blood Count 9.5, Red Blood Count 4.97, Hemoglobin 14.5, Hematocrit 42.7, Mean Corpuscular Volume 86, Mean Corpuscular Hemoglobin 29.1, Mean Corpuscular Hemoglobin Concent 33.9, Red Cell Distribution Width 11.3L, Platelet Count 179, Mean Platelet Volume 10.8H, Neutrophils (%) (Auto) 49.6, Lymphocytes (%) (Auto) 29.8, Monocytes (%) (Auto) 13.2H, Eosinophils (%) (Auto) 6.6H, Basophils (%) ( Auto) 0.9, Erythrocyte Sedimentation Rate 27H, Sodium Level 136, Potassium Level 3.8, Chloride Level 103, Carbon Dioxide Level 23, Anion Gap 10, Blood Urea Nitrogen 55H, Creatinine 3.2H, Estimat Glomerular Filtration Rate , Glucose Level 261H, Calcium Level 8.9, Phosphorus Level 3.7, Magnesium Level 2.3 , Total Bilirubin 0.5, Aspartate Amino Transf (AST/SGOT) 11L, Alanine Aminotransferase (ALT/SGPT) 10L, Alkaline Phosphatase 86, C-Reactive Protein, Quantitative 1.2H, Total Protein 7.4, Albumin 2.8L, Globulin 4.6, Albumin/ Globulin Ratio 0.6L Current Medications Medications (Trade) Dose Ordered Sig/Venessa Route PRN Reason Start Time Stop Time Status Last Admin Dose Admin Acetaminophen (Tylenol) 650 mg Q4H PRN ORAL fever 02/17/18 16:29 03/18/18 16:28 Albuterol/ Ipratropium (Albuterol/ Ipratropium) 3 ml Q4H PRN HHN Shortness of Breath 02/17/18 16:29 02/21/18 16:28 Allopurinol (Zyloprim) 200 mg DAILY ORAL 02/18/18 09:00 03/20/18 08:59 02/20/18 09:40 Chlorhexidine Gluconate (Kelsea-Hex 2%) 1 applic DAILY@1999 TOPIC 02/19/18 20:00 03/21/18 19:59 02/19/18 20:10 Dextrose (Dextrose 50%) 25 ml Q30M PRN IV Hypoglycemia 02/17/18 16:29 03/19/18 16:28 Dextrose (Dextrose 50%) 50 ml Q30M PRN IV Hypoglycemia 02/17/18 16:30 03/19/18 06:59 Docusate Sodium (Colace) 100 mg THREE TIMES A DAY ORAL 02/17/18 18:00 03/19/18 17:59 02/20/18 12:04 Finasteride (Proscar) 5 mg DAILY ORAL 02/18/18 09:00 03/19/18 08:59 02/20/18 09:39 Heparin Sodium (Porcine) (Heparin 5000 units/ml) 5,000 units EVERY 12 HOURS SUBQ 02/17/18 21:00 03/18/18 20:59 02/20/18 09:43 Insulin Aspart (NovoLOG) BEFORE MEALS AND HS SUBQ 02/17/18 16:30 03/18/18 16:29 02/20/18 11:56 Insulin Aspart (NovoLOG) 8 units NOVOTIAC SUBQ 02/20/18 11:50 03/19/18 07:59 02/20/18 11:55 Insulin Detemir (Levemir) 24 units DAILY SUBQ 02/20/18 09:00 03/19/18 08:59 02/20/18 09:54 Meropenem 500 mg/ Sodium Chloride 55 ml @ 110 mls/hr EVERY 12 HOURS IVPB 02/17/18 21:00 02/22/18 20:59 02/20/18 09:39 Morphine Sulfate (Morphine Sulfate) 2 mg Q4H PRN IVP Moderate Pain (Pain Scale 4-6) 02/17/18 16:30 02/23/18 16:29 02/19/18 17:05 Nitroglycerin (Ntg) 0.4 mg Q5M PRN SL Prn Chest Pain 02/17/18 16:30 03/18/18 14:29 Ondansetron HCl (Zofran) 4 mg Q6H PRN IVP Nausea & Vomiting 02/17/18 16:30 03/18/18 16:29 Polyethylene Glycol (Miralax) 17 gm DAILYPRN PRN ORAL Constipation 02/17/18 16:30 03/19/18 16:29 Sodium Chloride 1,000 ml @ 75 mls/hr [id number] IV 02/18/18 08:00 03/20/18 07:59 02/20/18 09:40 Tamsulosin HCl (Flomax) 0.4 mg BID ORAL 02/18/18 09:00 03/20/18 08:59 02/20/18 09:40 Temazepam (Restoril) 15 mg HSPRN PRN ORAL Insomnia 02/17/18 16:31 02/24/18 16:30 Joyce Winters MD Feb 20, 2018 12:40
--- NOTE | 2018-02-20 12:42 | Infectious Diseases Prog Note ---
Assessment/Plan Assessment/Plan ASSESSMENT: The patient is an 82-year-old male with UTI. UCX ESBL E. coli. Ultrasound of kidney on US kid : no hydroureter doubt prostatitis.: PSA : nl +ve blood cx ( 02/17) 04/09 : CoNS Contaminant +ve blood Cx ( 02/17) 04/09 GNR Leukocytosis, SP EF: 70% JENNY / CKD. Cr improving Bilateral hearing loss Dementia BPH Hypertension History of hydronephrosis Diabetes CKD Allergic to penicillin? (severity of reaction), the patient tolerated Carbapenem PLAN: Cont pt on on IV meropenem day # 4 , upon DC will change to Invnaz to complete the course 02/19 Sp IV Vanco d# 2 Monitor CBC Monitor BMP Monitor cultures (blood) Nephrology follow up not ready for DC yet, await final 02/20 sp blood CX Subjective Allergies: Coded Allergies: PENICILLINS (Verified Allergy, Unknown, 01/10/18) Subjective Sp PICC Objective Vital Signs Last 24 Hour Vital Signs Date Time Temp Pulse Resp B/P (MAP) Pulse Ox O2 Delivery O2 Flow Rate FiO2 02/20/18 11:57 98.7 86 17 128/70 (89) 96 02/20/18 09:10 Room Air 02/20/18 08:14 98.7 99 17 146/86 (106) 96 02/20/18 04:00 98.1 91 17 156/95 (115) 96 02/20/18 00:00 98.1 97 17 151/96 (114) 97 02/19/18 21:00 Room Air 02/19/18 20:00 97.7 100 16 147/96 (113) 96 02/19/18 17:35 97.2 02/19/18 16:30 97.2 98 20 155/85 (108) 97 Height (Feet): 5 Height (Inches): 6.00 Weight (Pounds): 149 HEENT: mucous membranes moist Respiratory/Chest: no respiratory distress Cardiovascular: regular rhythm Abdomen: no organomegaly Microbiology Date/Time Source Procedure Growth Status 02/18/18 17:08 Blood Blood Culture - Preliminary NO GROWTH AFTER 24 HOURS Resulted 02/18/18 17:00 Blood Blood Culture - Preliminary NO GROWTH AFTER 24 HOURS Resulted 02/17/18 14:36 Urine,Clean Catch Urine Culture - Final Escherichia Coli - Esbl Complete Laboratory Tests Test 02/20/18 05:00 White Blood Count 9.5 K/UL (4.8-10.8) Red Blood Count 4.97 M/UL (4.70-6.10) Hemoglobin 14.5 G/DL (14.2-18.0) Hematocrit 42.7 % (42.0-52.0) Mean Corpuscular Volume 86 FL (80-99) Mean Corpuscular Hemoglobin 29.1 PG (27.0-31.0) Mean Corpuscular Hemoglobin Concent 33.9 G/DL (32.0-36.0) Red Cell Distribution Width 11.3 % (11.6-14.8) L Platelet Count 179 K/UL (150-450) Mean Platelet Volume 10.8 FL (6.5-10.1) H Neutrophils (%) (Auto) 49.6 % (45.0-75.0) Lymphocytes (%) (Auto) 29.8 % (20.0-45.0) Monocytes (%) (Auto) 13.2 % (1.0-10.0) H Eosinophils (%) (Auto) 6.6 % (0.0-3.0) H Basophils (%) (Auto) 0.9 % (0.0-2.0) Erythrocyte Sedimentation Rate 27 MM/HR (0-20) H Sodium Level 136 MMOL/L (136-145) Potassium Level 3.8 MMOL/L (3.5-5.1) Chloride Level 103 MMOL/L (98-107) Carbon Dioxide Level 23 MMOL/L (21-32) Anion Gap 10 mmol/L (5-15) Blood Urea Nitrogen 55 mg/dL (7-18) H Creatinine 3.2 MG/DL (0.55-1.30) H Estimat Glomerular Filtration Rate mL/min (>60) Glucose Level 261 MG/DL (74-106) H Calcium Level 8.9 MG/DL (8.5-10.1) Phosphorus Level 3.7 MG/DL (2.5-4.9) Magnesium Level 2.3 MG/DL (1.8-2.4) Total Bilirubin 0.5 MG/DL (0.2-1.0) Aspartate Amino Transf (AST/SGOT) 11 U/L (15-37) L Alanine Aminotransferase (ALT/SGPT) 10 U/L (12-78) L Alkaline Phosphatase 86 U/L (46-116) C-Reactive Protein, Quantitative 1.2 mg/dL (0.00-0.90) H Total Protein 7.4 G/DL (6.4-8.2) Albumin 2.8 G/DL (3.4-5.0) L Globulin 4.6 g/dL Albumin/Globulin Ratio 0.6 (1.0-2.7) L Current Medications Medications (Trade) Dose Ordered Sig/Venessa Route PRN Reason Start Time Stop Time Status Last Admin Dose Admin Acetaminophen (Tylenol) 650 mg Q4H PRN ORAL fever 02/17/18 16:29 03/18/18 16:28 Albuterol/ Ipratropium (Albuterol/ Ipratropium) 3 ml Q4H PRN HHN Shortness of Breath 02/17/18 16:29 02/21/18 16:28 Allopurinol (Zyloprim) 200 mg DAILY ORAL 02/18/18 09:00 03/20/18 08:59 02/20/18 09:40 Chlorhexidine Gluconate (Kelsea-Hex 2%) 1 applic DAILY@2000 TOPIC 02/19/18 20:00 03/21/18 19:59 02/19/18 20:10 Dextrose (Dextrose 50%) 25 ml Q30M PRN IV Hypoglycemia 02/17/18 16:29 03/19/18 16:28 Dextrose (Dextrose 50%) 50 ml Q30M PRN IV Hypoglycemia 02/17/18 16:30 03/19/18 06:59 Docusate Sodium (Colace) 100 mg THREE TIMES A DAY ORAL 02/17/18 18:00 03/19/18 17:59 02/20/18 12:04 Finasteride (Proscar) 5 mg DAILY ORAL 02/18/18 09:00 03/19/18 08:59 02/20/18 09:39 Heparin Sodium (Porcine) (Heparin 5000 units/ml) 5,000 units EVERY 12 HOURS SUBQ 02/17/18 21:00 03/18/18 20:59 02/20/18 09:43 Insulin Aspart (NovoLOG) BEFORE MEALS AND HS SUBQ 02/17/18 16:30 03/18/18 16:29 02/20/18 11:56 Insulin Aspart (NovoLOG) 8 units NOVOTIAC SUBQ 02/20/18 11:50 03/19/18 07:59 02/20/18 11:55 Insulin Detemir (Levemir) 24 units DAILY SUBQ 02/20/18 09:00 03/19/18 08:59 02/20/18 09:54 Meropenem 500 mg/ Sodium Chloride 55 ml @ 110 mls/hr EVERY 12 HOURS IVPB 02/17/18 21:00 02/22/18 20:59 02/20/18 09:39 Morphine Sulfate (Morphine Sulfate) 2 mg Q4H PRN IVP Moderate Pain (Pain Scale 4-6) 02/17/18 16:30 02/23/18 16:29 02/19/18 17:05 Nitroglycerin (Ntg) 0.4 mg Q5M PRN SL Prn Chest Pain 02/17/18 16:30 03/18/18 14:29 Ondansetron HCl (Zofran) 4 mg Q6H PRN IVP Nausea & Vomiting 02/17/18 16:30 03/18/18 16:29 Polyethylene Glycol (Miralax) 17 gm DAILYPRN PRN ORAL Constipation 02/17/18 16:30 03/19/18 16:29 Sodium Chloride 1,000 ml @ 75 mls/hr [id number] IV 02/18/18 08:00 03/20/18 07:59 02/20/18 09:40 Tamsulosin HCl (Flomax) 0.4 mg BID ORAL 02/18/18 09:00 03/20/18 08:59 02/20/18 09:40 Temazepam (Restoril) 15 mg HSPRN PRN ORAL Insomnia 02/17/18 16:31 02/24/18 16:30 Deshaun Cheung MD Feb 20, 2018 12:42
[2018-02-20 15:50] VITALS: BP 142/94
[2018-02-20 20:00] VITALS: BP 142/94
[2018-02-20] MEDS: Dyna-Hex 2% Top Sol 2oz TOPIC SCH (20:33)
[2018-02-21] VITALS (7 sets, daily range): BP systolic 121–155; BP diastolic 69–92
[2018-02-21] MEDS: NovoLOG Insulin Flexpen SUBQ SCH ×7 (05:43→20:20)
[2018-02-21 06:33] LABS: BASOPHILS % (AUTO) 1.3 % (0.0-2.0); HEMATOCRIT 37.8 % (42.0-52.0); HEMOGLOBIN 13.4 G/DL (14.2-18.0); LYMPHOCYTES % (AUTO) 40.1 % (20.0-45.0); MEAN CORPUSCULAR VOLUME 86 FL (80-99); MONOCYTES % (AUTO) 12.2 % (1.0-10.0); NEUTROPHILS % (AUTO) 36.4 % (45.0-75.0); PLATELET COUNT 177 K/UL (150-450); RED CELL DISTRIBUTION WIDTH 10.9 % (11.6-14.8); WHITE BLOOD COUNT 7.5 K/UL (4.8-10.8)
[2018-02-21 06:43] LABS: ANION GAP 9 mmol/L (5-15); BLOOD UREA NITROGEN 50 mg/dL (7-18); CALCIUM 8.9 MG/DL (8.5-10.1); CARBON DIOXIDE 25 MMOL/L (21-32); CHLORIDE 104 MMOL/L (98-107); POTASSIUM 3.7 MMOL/L (3.5-5.1); SODIUM 138 MMOL/L (136-145)
--- NOTE | 2018-02-21 06:47 | General Progress Note ---
Assessment/Plan Problem List: (1) Stage 4 chronic kidney disease ICD Codes: N18.4 - Chronic kidney disease, stage 4 (severe) SNOMED: 903791353 (2) Diabetes mellitus ICD Codes: E11.9 - Type 2 diabetes mellitus without complications SNOMED: 85585619 (3) Hyperglycemia ICD Codes: R73.9 - Hyperglycemia, unspecified SNOMED: 88588057 Assessment/Plan continue Levemir 24 units daily continue Novolog 8 units ac tid + NSSI ac / hs Subjective Allergies: Coded Allergies: PENICILLINS (Verified Allergy, Unknown, 01/10/18) All Systems: reviewed and negative except above Subjective events noted Objective Last 24 Hour Vital Signs Date Time Temp Pulse Resp B/P (MAP) Pulse Ox O2 Delivery O2 Flow Rate FiO2 02/21/18 04:03 97.5 76 17 147/87 (107) 97 02/21/18 00:05 97.3 81 16 141/87 (105) 97 02/20/18 21:05 Room Air 02/20/18 20:00 97.5 82 17 142/94 (110) 98 02/20/18 15:50 98.7 92 17 142/94 (110) 96 02/20/18 11:57 98.7 86 17 128/70 (89) 96 02/20/18 09:10 Room Air 02/20/18 08:14 98.7 99 17 146/86 (106) 96 Intake and Output 02/20/18 02/21/18 19:00 07:00 Intake Total 360 ml 1115 ml Output Total 280 ml 900 ml Balance 80 ml 215 ml Intake Oral 360 ml 240 ml IV Total 875 ml Output Urine Total 280 ml 900 ml # Voids 3 3 Laboratory Tests 02/21/18 06:00: White Blood Count [Pending], Red Blood Count [Pending], Hemoglobin [Pending], Hematocrit [Pending], Mean Corpuscular Volume [Pending], Mean Corpuscular Hemoglobin [Pending], Mean Corpuscular Hemoglobin Concent [Pending], Red Cell Distribution Width [Pending], Platelet Count [Pending], Mean Platelet Volume [ Pending], Neutrophils (%) (Auto) [Pending], Lymphocytes (%) (Auto) [Pending], Monocytes (%) (Auto) [Pending], Eosinophils (%) (Auto) [Pending], Basophils (%) (Auto) [Pending], Sodium Level 138, Potassium Level 3.7, Chloride Level 104, Carbon Dioxide Level 25, Anion Gap 9, Blood Urea Nitrogen 50H, Creatinine 3.0H, Estimat Glomerular Filtration Rate , Glucose Level 188H, Calcium Level 8.9 Height (Feet): 5 Height (Inches): 6.00 Weight (Pounds): 149 General Appearance: no apparent distress Neck: normal alignment Cardiovascular: regular rhythm Respiratory/Chest: lungs clear Abdomen: normal bowel sounds Pelvis: normal external exam Objective Item Value Date Time Bedside Blood Glucose 171 mg/dl H 02/21/18 0629 Bedside Blood Glucose 94 mg/dl 02/20/18 2103 Bedside Blood Glucose 321 mg/dl H 02/20/18 1710 Bedside Blood Glucose 387 mg/dl H 02/20/18 1205 Bedside Blood Glucose 230 mg/dl H 02/20/18 0954 Bedside Blood Glucose 230 mg/dl H 02/20/18 0630 Current Medications Medications (Trade) Dose Ordered Sig/Venessa Route PRN Reason Start Time Stop Time Status Last Admin Dose Admin Acetaminophen (Tylenol) 650 mg Q4H PRN ORAL fever 02/17/18 16:29 03/18/18 16:28 Albuterol/ Ipratropium (Albuterol/ Ipratropium) 3 ml Q4H PRN HHN Shortness of Breath 02/17/18 16:29 02/21/18 16:28 Allopurinol (Zyloprim) 200 mg DAILY ORAL 02/18/18 09:00 03/20/18 08:59 02/20/18 09:40 Chlorhexidine Gluconate (Kelsea-Hex 2%) 1 applic DAILY@1999 TOPIC 02/19/18 20:00 03/21/18 19:59 02/20/18 20:33 Dextrose (Dextrose 50%) 25 ml Q30M PRN IV Hypoglycemia 02/17/18 16:29 03/19/18 16:28 Dextrose (Dextrose 50%) 50 ml Q30M PRN IV Hypoglycemia 02/17/18 16:30 03/19/18 06:59 Docusate Sodium (Colace) 100 mg THREE TIMES A DAY ORAL 02/17/18 18:00 03/19/18 17:59 11/15/18 17:06 Finasteride (Proscar) 5 mg DAILY ORAL 02/18/18 09:00 03/19/18 08:59 02/20/18 09:39 Heparin Sodium (Porcine) (Heparin 5000 units/ml) 5,000 units EVERY 12 HOURS SUBQ 02/17/18 21:00 03/18/18 20:59 02/20/18 20:34 Insulin Aspart (NovoLOG) BEFORE MEALS AND HS SUBQ 02/17/18 16:30 03/18/18 16:29 02/21/18 05:44 Insulin Aspart (NovoLOG) 8 units NOVOTIAC SUBQ 02/20/18 11:50 03/19/18 07:59 02/21/18 05:43 Insulin Detemir (Levemir) 24 units DAILY SUBQ 02/20/18 09:00 03/19/18 08:59 02/20/18 09:54 Meropenem 500 mg/ Sodium Chloride 55 ml @ 110 mls/hr EVERY 12 HOURS IVPB 02/17/18 21:00 02/22/18 20:59 02/20/18 20:34 Morphine Sulfate (Morphine Sulfate) 2 mg Q4H PRN IVP Moderate Pain (Pain Scale 4-6) 02/17/18 16:30 02/23/18 16:29 02/19/18 17:05 Nitroglycerin (Ntg) 0.4 mg Q5M PRN SL Prn Chest Pain 02/17/18 16:30 03/18/18 14:29 Ondansetron HCl (Zofran) 4 mg Q6H PRN IVP Nausea & Vomiting 02/17/18 16:30 03/18/18 16:29 Polyethylene Glycol (Miralax) 17 gm DAILYPRN PRN ORAL Constipation 02/17/18 16:30 03/19/18 16:29 Sodium Chloride 1,000 ml @ 75 mls/hr [id number] IV 02/18/18 08:00 03/20/18 07:59 02/21/18 03:32 Tamsulosin HCl (Flomax) 0.4 mg BID ORAL 02/18/18 09:00 03/20/18 08:59 02/20/18 17:06 Temazepam (Restoril) 15 mg HSPRN PRN ORAL Insomnia 02/17/18 16:31 02/24/18 16:30 02/20/18 20:34 Reji Correa MD Feb 21, 2018 06:47
[2018-02-21] MEDS: Tamsulosin 0.4mg cap ORAL SCH ×2 (08:40→18:39)
[2018-02-21] MEDS: Docusate 100mg cap ORAL SCH ×3 (08:40→18:39)
[2018-02-21] MEDS: Allopurinol 100mg Tab ORAL SCH (08:41)
[2018-02-21] MEDS: Levemir Flexpen SUBQ SCH (08:45)
[2018-02-21] MEDS: Heparin 5000 units/ml inj SUBQ SCH ×2 (08:47→20:18)
[2018-02-21] MEDS: Meropenem 500 MG in NS 55 ML IVPB SCH ×2 (08:49→20:17)
--- NOTE | 2018-02-21 09:45 | Nephrology Progress Note ---
Assessment/Plan Problem List: (1) Acute on chronic renal failure (2) Hyperglycemia (3) Dehydration (4) UTI (urinary tract infection) (5) Urinary retention Assessment: 150 cc post Assessment Acute on Chronic Renal failure- Cr lower 4.9 to 3.0 Hyperglycemia HyperUrecemia UTI Proteinuria and HypoAlbuminemia Plan Flomax Fluid Challenge BS control Monitor renal parameters 2D Echo pending 70% ejFx Kidney HIEN no hydro , Posterior bladder wall thickening versus debris per orders Subjective ROS Limited/Unobtainable: No Objective Objective Last 24 Hour Vital Signs Date Time Temp Pulse Resp B/P (MAP) Pulse Ox O2 Delivery O2 Flow Rate FiO2 02/21/18 04:03 97.5 76 17 147/87 (107) 97 02/21/18 00:05 97.3 81 16 141/87 (105) 97 02/20/18 21:05 Room Air 02/20/18 20:00 97.5 82 17 142/94 (110) 98 02/20/18 15:50 98.7 92 17 142/94 (110) 96 02/20/18 11:57 98.7 86 17 128/70 (89) 96 Intake and Output 02/20/18 02/21/18 19:00 07:00 Intake Total 360 ml 1115 ml Output Total 280 ml 900 ml Balance 80 ml 215 ml Intake Oral 360 ml 240 ml IV Total 875 ml Output Urine Total 280 ml 900 ml # Voids 3 3 Laboratory Tests 02/21/18 06:00: White Blood Count 7.5, Red Blood Count 4.40L, Hemoglobin 13.4L, Hematocrit 37.8L , Mean Corpuscular Volume 86, Mean Corpuscular Hemoglobin 30.5, Mean Corpuscular Hemoglobin Concent 35.5, Red Cell Distribution Width 10.9L, Platelet Count 177, Mean Platelet Volume 12.5H, Neutrophils (%) (Auto) 36.4L, Lymphocytes (%) (Auto) 40.1, Monocytes (%) (Auto) 12.2H, Eosinophils (%) (Auto) 10.0H, Basophils (%) (Auto) 1.3, Sodium Level 138, Potassium Level 3.7, Chloride Level 104, Carbon Dioxide Level 25, Anion Gap 9, Blood Urea Nitrogen 50H, Creatinine 3.0H, Estimat Glomerular Filtration Rate , Glucose Level 188H, Calcium Level 8.9 Height (Feet): 5 Height (Inches): 6.00 Weight (Pounds): 149 General Appearance: no apparent distress Objective no change Guilherme Ernandez MD Feb 21, 2018 09:45
--- NOTE | 2018-02-21 12:05 | Infectious Diseases Prog Note ---
Assessment/Plan Assessment/Plan ASSESSMENT: The patient is an 82-year-old male with UTI. UCX ESBL E. coli. Ultrasound of kidney on US kid : no hydroureter doubt prostatitis.: PSA : nl +ve blood cx ( 02/17) 2 : CoNS Contaminant +ve blood Cx ( 02/17) 04/09 GNR ( as per [facility] lab : lactose neg GNR ) Leukocytosis, SP EF: 70% JENNY / CKD. Cr improving Bilateral hearing loss Dementia BPH Hypertension History of hydronephrosis Diabetes CKD Allergic to penicillin? (severity of reaction), the patient tolerated Carbapenem PLAN: Cont pt on on IV meropenem day # , 02/19 Sp IV Vanco d# 2 Monitor CBC Monitor BMP Monitor cultures (blood) Nephrology follow up not ready for DC yet, await final 02/20 sp blood CX Subjective Allergies: Coded Allergies: PENICILLINS (Verified Allergy, Unknown, 01/10/18) Subjective comfortable Objective Vital Signs Last 24 Hour Vital Signs Date Time Temp Pulse Resp B/P (MAP) Pulse Ox O2 Delivery O2 Flow Rate FiO2 02/21/18 04:03 97.5 76 17 147/87 (107) 97 02/21/18 00:05 97.3 81 16 141/87 (105) 97 02/20/18 21:05 Room Air 02/20/18 20:00 97.5 82 17 142/94 (110) 98 02/20/18 15:50 98.7 92 17 142/94 (110) 96 02/20/18 11:57 98.7 86 17 128/70 (89) 96 Height (Feet): 5 Height (Inches): 6.00 Weight (Pounds): 149 HEENT: anicteric Respiratory/Chest: normal breath sounds Cardiovascular: regular rhythm Abdomen: soft, non tender Microbiology Date/Time Source Procedure Growth Status 02/18/18 17:08 Blood Blood Culture - Preliminary NO GROWTH AFTER 48 HOURS Resulted 02/18/18 17:00 Blood Blood Culture - Preliminary NO GROWTH AFTER 48 HOURS Resulted Laboratory Tests Test 02/21/18 06:00 White Blood Count 7.5 K/UL (4.8-10.8) Red Blood Count 4.40 M/UL (4.70-6.10) L Hemoglobin 13.4 G/DL (14.2-18.0) L Hematocrit 37.8 % (42.0-52.0) L Mean Corpuscular Volume 86 FL (80-99) Mean Corpuscular Hemoglobin 30.5 PG (27.0-31.0) Mean Corpuscular Hemoglobin Concent 35.5 G/DL (32.0-36.0) Red Cell Distribution Width 10.9 % (11.6-14.8) L Platelet Count 177 K/UL (150-450) Mean Platelet Volume 12.5 FL (6.5-10.1) H Neutrophils (%) (Auto) 36.4 % (45.0-75.0) L Lymphocytes (%) (Auto) 40.1 % (20.0-45.0) Monocytes (%) (Auto) 12.2 % (1.0-10.0) H Eosinophils (%) (Auto) 10.0 % (0.0-3.0) H Basophils (%) (Auto) 1.3 % (0.0-2.0) Sodium Level 138 MMOL/L (136-145) Potassium Level 3.7 MMOL/L (3.5-5.1) Chloride Level 104 MMOL/L (98-107) Carbon Dioxide Level 25 MMOL/L (21-32) Anion Gap 9 mmol/L (5-15) Blood Urea Nitrogen 50 mg/dL (7-18) H Creatinine 3.0 MG/DL (0.55-1.30) H Estimat Glomerular Filtration Rate mL/min (>60) Glucose Level 188 MG/DL (74-106) H Calcium Level 8.9 MG/DL (8.5-10.1) Current Medications Medications (Trade) Dose Ordered Sig/Venessa Route PRN Reason Start Time Stop Time Status Last Admin Dose Admin Acetaminophen (Tylenol) 650 mg Q4H PRN ORAL fever 02/17/18 16:29 03/18/18 16:28 Albuterol/ Ipratropium (Albuterol/ Ipratropium) 3 ml Q4H PRN HHN Shortness of Breath 02/17/18 16:29 02/21/18 16:28 Allopurinol (Zyloprim) 200 mg DAILY ORAL 02/18/18 09:00 03/20/18 08:59 02/21/18 08:41 Chlorhexidine Gluconate (Kelsea-Hex 2%) 1 applic DAILY@1999 TOPIC 02/19/18 20:00 03/21/18 19:59 02/20/18 20:33 Dextrose (Dextrose 50%) 25 ml Q30M PRN IV Hypoglycemia 02/17/18 16:29 03/19/18 16:28 Dextrose (Dextrose 50%) 50 ml Q30M PRN IV Hypoglycemia 02/17/18 16:30 03/19/18 06:59 Docusate Sodium (Colace) 100 mg THREE TIMES A DAY ORAL 02/17/18 18:00 03/19/18 17:59 02/21/18 08:40 Finasteride (Proscar) 5 mg DAILY ORAL 02/18/18 09:00 03/19/18 08:59 02/21/18 08:40 Heparin Sodium (Porcine) (Heparin 5000 units/ml) 5,000 units EVERY 12 HOURS SUBQ 02/17/18 21:00 03/18/18 20:59 02/21/18 08:47 Insulin Aspart (NovoLOG) BEFORE MEALS AND HS SUBQ 02/17/18 16:30 03/18/18 16:29 02/21/18 05:44 Insulin Aspart (NovoLOG) 8 units NOVOTIAC SUBQ 02/20/18 11:50 03/19/18 07:59 02/21/18 05:43 Insulin Detemir (Levemir) 24 units DAILY SUBQ 02/20/18 09:00 03/19/18 08:59 02/21/18 08:45 Meropenem 500 mg/ Sodium Chloride 55 ml @ 110 mls/hr EVERY 12 HOURS IVPB 02/17/18 21:00 02/26/18 20:59 02/21/18 08:49 Morphine Sulfate (Morphine Sulfate) 2 mg Q4H PRN IVP Moderate Pain (Pain Scale 4-6) 02/17/18 16:30 02/23/18 16:29 02/19/18 17:05 Nitroglycerin (Ntg) 0.4 mg Q5M PRN SL Prn Chest Pain 02/17/18 16:30 03/18/18 14:29 Ondansetron HCl (Zofran) 4 mg Q6H PRN IVP Nausea & Vomiting 02/17/18 16:30 03/18/18 16:29 Polyethylene Glycol (Miralax) 17 gm DAILYPRN PRN ORAL Constipation 02/17/18 16:30 03/19/18 16:29 Sodium Chloride 1,000 ml @ 75 mls/hr [id number] IV 02/18/18 08:00 03/20/18 07:59 02/21/18 03:32 Tamsulosin HCl (Flomax) 0.4 mg BID ORAL 02/18/18 09:00 03/20/18 08:59 02/21/18 08:40 Temazepam (Restoril) 15 mg HSPRN PRN ORAL Insomnia 02/17/18 16:31 02/24/18 16:30 02/20/18 20:34 Deshaun Cheung MD Feb 21, 2018 12:04
--- NOTE | 2018-02-21 12:13 | Pulmonology Progress Note ---
Assessment/Plan Problems: (1) Bacteremia (2) Hyperglycemia (3) Acute encephalopathy (4) Stage 4 chronic kidney disease (5) Diabetes mellitus (6) mild vascular dementia Assessment/Plan doing better awaiting final culture results continue iv fluids continue IV abx f/u blood culture results BS improving f/u electrolytes all consults reviewed dc planning Subjective ROS Limited/Unobtainable: No Constitutional: Reports: no symptoms HEENT: Repors: no symptoms Respiratory: Reports: no symptoms Allergies: Coded Allergies: PENICILLINS (Verified Allergy, Unknown, 01/10/18) Objective Last 24 Hour Vital Signs Date Time Temp Pulse Resp B/P (MAP) Pulse Ox O2 Delivery O2 Flow Rate FiO2 02/21/18 04:03 97.5 76 17 147/87 (107) 97 02/21/18 00:05 97.3 81 16 141/87 (105) 97 02/20/18 21:05 Room Air 02/20/18 20:00 97.5 82 17 142/94 (110) 98 02/20/18 15:50 98.7 92 17 142/94 (110) 96 Intake and Output 02/20/18 02/21/18 19:00 07:00 Intake Total 360 ml 1115 ml Output Total 280 ml 900 ml Balance 80 ml 215 ml Intake Oral 360 ml 240 ml IV Total 875 ml Output Urine Total 280 ml 900 ml # Voids 3 3 Objective General Appearance: WD/WN HEENT: normocephalic Respiratory/Chest: chest wall non-tender, lungs clear Cardiovascular: normal peripheral pulses, normal rate Abdomen: normal bowel sounds, soft, non tender Genitourinary: normal external genitalia Skin: no rash 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, no motor/sensory deficits Microbiology Date/Time Source Procedure Growth Status 02/18/18 17:08 Blood Blood Culture - Preliminary NO GROWTH AFTER 48 HOURS Resulted 02/18/18 17:00 Blood Blood Culture - Preliminary NO GROWTH AFTER 48 HOURS Resulted Laboratory Tests 02/21/18 06:00: White Blood Count 7.5, Red Blood Count 4.40L, Hemoglobin 13.4L, Hematocrit 37.8L , Mean Corpuscular Volume 86, Mean Corpuscular Hemoglobin 30.5, Mean Corpuscular Hemoglobin Concent 35.5, Red Cell Distribution Width 10.9L, Platelet Count 177, Mean Platelet Volume 12.5H, Neutrophils (%) (Auto) 36.4L, Lymphocytes (%) (Auto) 40.1, Monocytes (%) (Auto) 12.2H, Eosinophils (%) (Auto) 10.0H, Basophils (%) (Auto) 1.3, Sodium Level 138, Potassium Level 3.7, Chloride Level 104, Carbon Dioxide Level 25, Anion Gap 9, Blood Urea Nitrogen 50H, Creatinine 3.0H, Estimat Glomerular Filtration Rate , Glucose Level 188H, Calcium Level 8.9 Current Medications Medications (Trade) Dose Ordered Sig/Venessa Route PRN Reason Start Time Stop Time Status Last Admin Dose Admin Acetaminophen (Tylenol) 650 mg Q4H PRN ORAL fever 02/17/18 16:29 03/18/18 16:28 Albuterol/ Ipratropium (Albuterol/ Ipratropium) 3 ml Q4H PRN HHN Shortness of Breath 02/17/18 16:29 02/21/18 16:28 Allopurinol (Zyloprim) 200 mg DAILY ORAL 02/18/18 09:00 03/20/18 08:59 02/21/18 08:41 Chlorhexidine Gluconate (Kelsea-Hex 2%) 1 applic DAILY@2000 TOPIC 02/19/18 20:00 03/21/18 19:59 02/20/18 20:33 Dextrose (Dextrose 50%) 25 ml Q30M PRN IV Hypoglycemia 02/17/18 16:29 03/19/18 16:28 Dextrose (Dextrose 50%) 50 ml Q30M PRN IV Hypoglycemia 02/17/18 16:30 03/19/18 06:59 Docusate Sodium (Colace) 100 mg THREE TIMES A DAY ORAL 02/17/18 18:00 03/19/18 17:59 02/21/18 08:40 Finasteride (Proscar) 5 mg DAILY ORAL 02/18/18 09:00 03/19/18 08:59 02/21/18 08:40 Heparin Sodium (Porcine) (Heparin 5000 units/ml) 5,000 units EVERY 12 HOURS SUBQ 02/17/18 21:00 03/18/18 20:59 02/21/18 08:47 Insulin Aspart (NovoLOG) BEFORE MEALS AND HS SUBQ 02/17/18 16:30 03/18/18 16:29 02/21/18 05:44 Insulin Aspart (NovoLOG) 8 units NOVOTIAC SUBQ 02/20/18 11:50 03/19/18 07:59 02/21/18 05:43 Insulin Detemir (Levemir) 24 units DAILY SUBQ 02/20/18 09:00 03/19/18 08:59 02/21/18 08:45 Meropenem 500 mg/ Sodium Chloride 55 ml @ 110 mls/hr EVERY 12 HOURS IVPB 02/17/18 21:00 02/26/18 20:59 02/21/18 08:49 Morphine Sulfate (Morphine Sulfate) 2 mg Q4H PRN IVP Moderate Pain (Pain Scale 4-6) 02/17/18 16:30 02/23/18 16:29 02/19/18 17:05 Nitroglycerin (Ntg) 0.4 mg Q5M PRN SL Prn Chest Pain 02/17/18 16:30 03/18/18 14:29 Ondansetron HCl (Zofran) 4 mg Q6H PRN IVP Nausea & Vomiting 02/17/18 16:30 03/18/18 16:29 Polyethylene Glycol (Miralax) 17 gm DAILYPRN PRN ORAL Constipation 02/17/18 16:30 03/19/18 16:29 Sodium Chloride 1,000 ml @ 75 mls/hr [id number] IV 02/18/18 08:00 03/20/18 07:59 02/21/18 03:32 Tamsulosin HCl (Flomax) 0.4 mg BID ORAL 02/18/18 09:00 03/20/18 08:59 02/21/18 08:40 Temazepam (Restoril) 15 mg HSPRN PRN ORAL Insomnia 02/17/18 16:31 02/24/18 16:30 02/20/18 20:34 Joyce Winters MD Feb 21, 2018 12:13
--- NOTE | 2018-02-21 12:40 | General Progress Note ---
Assessment/Plan Problem List: (1) Diabetes mellitus ICD Codes: E11.9 - Type 2 diabetes mellitus without complications SNOMED: 22673064 (2) Acute on chronic renal failure ICD Codes: N17.9 - Acute kidney failure, unspecified; N18.9 - Chronic kidney disease, unspecified SNOMED: 194937831 (3) UTI (urinary tract infection) ICD Codes: N39.0 - Urinary tract infection, site not specified SNOMED: 71081874 (4) Hyperglycemia ICD Codes: R73.9 - Hyperglycemia, unspecified SNOMED: 88229579 (5) Dehydration ICD Codes: E86.0 - Dehydration SNOMED: 60547615 Status: stable, progressing Assessment/Plan ot pt diet abx cbc bmp am dc plan snf pending id Subjective Constitutional: Reports: weakness Allergies: Coded Allergies: PENICILLINS (Verified Allergy, Unknown, 01/10/18) All Systems: reviewed and negative except above Subjective sleepy calm Objective Last 24 Hour Vital Signs Date Time Temp Pulse Resp B/P (MAP) Pulse Ox O2 Delivery O2 Flow Rate FiO2 02/21/18 04:03 97.5 76 17 147/87 (107) 97 02/21/18 00:05 97.3 81 16 141/87 (105) 97 02/20/18 21:05 Room Air 02/20/18 20:00 97.5 82 17 142/94 (110) 98 02/20/18 15:50 98.7 92 17 142/94 (110) 96 Intake and Output 02/20/18 02/21/18 19:00 07:00 Intake Total 360 ml 1115 ml Output Total 280 ml 900 ml Balance 80 ml 215 ml Intake Oral 360 ml 240 ml IV Total 875 ml Output Urine Total 280 ml 900 ml # Voids 3 3 Laboratory Tests 02/21/18 06:00: White Blood Count 7.5, Red Blood Count 4.40L, Hemoglobin 13.4L, Hematocrit 37.8L , Mean Corpuscular Volume 86, Mean Corpuscular Hemoglobin 30.5, Mean Corpuscular Hemoglobin Concent 35.5, Red Cell Distribution Width 10.9L, Platelet Count 177, Mean Platelet Volume 12.5H, Neutrophils (%) (Auto) 36.4L, Lymphocytes (%) (Auto) 40.1, Monocytes (%) (Auto) 12.2H, Eosinophils (%) (Auto) 10.0H, Basophils (%) (Auto) 1.3, Sodium Level 138, Potassium Level 3.7, Chloride Level 104, Carbon Dioxide Level 25, Anion Gap 9, Blood Urea Nitrogen 50H, Creatinine 3.0H, Estimat Glomerular Filtration Rate , Glucose Level 188H, Calcium Level 8.9 Height (Feet): 5 Height (Inches): 6.00 Weight (Pounds): 149 General Appearance: lethargic EENT: normal ENT inspection Neck: normal alignment Cardiovascular: normal peripheral pulses, normal rate, regular rhythm Respiratory/Chest: chest wall non-tender, lungs clear, normal breath sounds Abdomen: normal bowel sounds, non tender, soft Extremities: normal inspection Edema: no edema noted Arm (L), no edema noted Arm (R), no edema noted Leg (L), no edema noted Leg (R), no edema noted Pedal (L), no edema noted Pedal (R), no edema noted Generalized Neurologic: motor weakness Skin: normal pigmentation, warm/dry Kevon Viera DO Feb 21, 2018 12:40
[2018-02-21] MEDS: Dyna-Hex 2% Top Sol 2oz TOPIC SCH (20:17)
[2018-02-22 04:00] VITALS: BP 116/77
[2018-02-22] MEDS: NovoLOG Insulin Flexpen SUBQ SCH ×7 (05:47→21:05)
[2018-02-22 06:22] LABS: BASOPHILS % (AUTO) 1.4 % (0.0-2.0); EOSINOPHILS % (AUTO) 9.6 % (0.0-3.0); HEMATOCRIT 36.4 % (42.0-52.0); HEMOGLOBIN 12.5 G/DL (14.2-18.0); LYMPHOCYTES % (AUTO) 40.3 % (20.0-45.0); MEAN CORPUSCULAR VOLUME 87 FL (80-99); MONOCYTES % (AUTO) 10.7 % (1.0-10.0); PLATELET COUNT 175 K/UL (150-450); RED CELL DISTRIBUTION WIDTH 11.1 % (11.6-14.8); WHITE BLOOD COUNT 7.1 K/UL (4.8-10.8)
[2018-02-22 06:31] LABS: ANION GAP 8 mmol/L (5-15); BLOOD UREA NITROGEN 47 mg/dL (7-18); CALCIUM 8.6 MG/DL (8.5-10.1); CARBON DIOXIDE 24 MMOL/L (21-32); CHLORIDE 105 MMOL/L (98-107); CREATININE 2.8 MG/DL (0.55-1.30); POTASSIUM 3.9 MMOL/L (3.5-5.1); SODIUM 137 MMOL/L (136-145)
[2018-02-22 08:00] VITALS: BP 138/66
[2018-02-22] MEDS: Tamsulosin 0.4mg cap ORAL SCH ×2 (08:01→17:09)
[2018-02-22] MEDS: Docusate 100mg cap ORAL SCH ×3 (08:01→17:09)
[2018-02-22] MEDS: Allopurinol 100mg Tab ORAL SCH (08:02)
--- NOTE | 2018-02-22 08:06 | General Progress Note ---
Assessment/Plan Problem List: (1) Diabetes mellitus ICD Codes: E11.9 - Type 2 diabetes mellitus without complications SNOMED: 64484505 (2) Acute on chronic renal failure ICD Codes: N17.9 - Acute kidney failure, unspecified; N18.9 - Chronic kidney disease, unspecified SNOMED: 165097158 (3) UTI (urinary tract infection) ICD Codes: N39.0 - Urinary tract infection, site not specified SNOMED: 93086493 (4) Hyperglycemia ICD Codes: R73.9 - Hyperglycemia, unspecified SNOMED: 32366531 (5) Dehydration ICD Codes: E86.0 - Dehydration SNOMED: 81879936 Status: stable, progressing Assessment/Plan ot pt diet abx dc to snf if clear Subjective Constitutional: Reports: weakness Allergies: Coded Allergies: PENICILLINS (Verified Allergy, Unknown, 01/10/18) All Systems: reviewed and negative except above Subjective sleepy calm Objective Last 24 Hour Vital Signs Date Time Temp Pulse Resp B/P (MAP) Pulse Ox O2 Delivery O2 Flow Rate FiO2 02/22/18 04:00 97.0 72 20 116/77 (90) 96 02/21/18 23:46 98.2 81 18 144/83 (103) 95 02/21/18 21:21 Room Air 02/21/18 20:00 98.0 84 18 155/92 (113) 98 02/21/18 16:00 97.9 80 18 121/72 (88) 98 02/21/18 12:00 98.4 74 19 127/69 (88) 98 02/21/18 09:00 Room Air Intake and Output 02/21/18 02/22/18 19:00 07:00 Intake Total 1540 ml 1030 ml Balance 1540 ml 1030 ml Intake Oral 660 ml 150 ml IV Total 880 ml 880 ml # Voids 5 3 # Bowel Movements 2 Laboratory Tests 02/22/18 05:00: White Blood Count 7.1, Red Blood Count 4.20L, Hemoglobin 12.5L, Hematocrit 36.4L , Mean Corpuscular Volume 87, Mean Corpuscular Hemoglobin 29.7, Mean Corpuscular Hemoglobin Concent 34.2, Red Cell Distribution Width 11.1L, Platelet Count 175, Mean Platelet Volume 10.9H, Neutrophils (%) (Auto) 38.0L, Lymphocytes (%) (Auto) 40.3, Monocytes (%) (Auto) 10.7H, Eosinophils (%) (Auto) 9.6H, Basophils (%) (Auto) 1.4, Sodium Level 137, Potassium Level 3.9, Chloride Level 105, Carbon Dioxide Level 24, Anion Gap 8, Blood Urea Nitrogen 47H, Creatinine 2.8H, Estimat Glomerular Filtration Rate , Glucose Level 176H, Calcium Level 8.6 Height (Feet): 5 Height (Inches): 6.00 Weight (Pounds): 149 General Appearance: lethargic EENT: normal ENT inspection Neck: normal alignment Cardiovascular: normal peripheral pulses, normal rate, regular rhythm Respiratory/Chest: chest wall non-tender, lungs clear, normal breath sounds Abdomen: normal bowel sounds, non tender, soft Extremities: normal inspection Edema: no edema noted Arm (L), no edema noted Arm (R), no edema noted Leg (L), no edema noted Leg (R), no edema noted Pedal (L), no edema noted Pedal (R), no edema noted Generalized Neurologic: motor weakness Skin: normal pigmentation, warm/dry Kevon Viera DO Feb 22, 2018 08:06
[2018-02-22] MEDS: Levemir Flexpen SUBQ SCH (08:08)
[2018-02-22] MEDS: Heparin 5000 units/ml inj SUBQ SCH ×2 (08:09→21:05)
[2018-02-22] MEDS: Meropenem 500 MG in NS 55 ML IVPB SCH ×2 (09:00→20:54)
[2018-02-22] MEDS ORDERED: INVANZ1 GM IVPB ×2 (09:40→09:57)
[2018-02-22] MEDS ORDERED: COLACE100 MG ORAL (09:41)
[2018-02-22] MEDS ORDERED: NOVOLOG100 UNIT/3 SUBQ (09:42)
[2018-02-22] MEDS ORDERED: LEVEMIR FL100 UNIT/1 SUBQ (09:42)
[2018-02-22] MEDS ORDERED: TAMSULOSIN HCL0.4 MG ORAL (09:42)
[2018-02-22] MEDS ORDERED: ALLOPURINOL100 M1 ORAL (09:42)
--- NOTE | 2018-02-22 09:47 | Infectious Diseases Prog Note ---
Assessment/Plan Assessment/Plan ASSESSMENT: The patient is an 82-year-old male with UTI. UCX ESBL E. coli. Ultrasound of kidney on US kid : no hydroureter doubt prostatitis.: PSA : nl +ve blood cx ( 02/17) 04/09 : CoNS Contaminant +ve blood Cx ( 02/17) 04/09 ESBL EColi Leukocytosis, SP EF: 70% JENNY / CKD. Cr improving Bilateral hearing loss Dementia BPH Hypertension History of hydronephrosis Diabetes CKD Allergic to penicillin? (severity of reaction), the patient tolerated Carbapenem PLAN: Cont pt on on IV meropenem day # , , ok to DC on Invanz 1 gm daily to complete the course 02/19 Sp IV Vanco d# 2 Monitor CBC Monitor BMP Monitor cultures (blood) Nephrology follow up Subjective Allergies: Coded Allergies: PENICILLINS (Verified Allergy, Unknown, 01/10/18) Subjective probable DC today Objective Vital Signs Last 24 Hour Vital Signs Date Time Temp Pulse Resp B/P (MAP) Pulse Ox O2 Delivery O2 Flow Rate FiO2 02/22/18 09:00 Room Air 02/22/18 08:00 98.1 86 16 138/66 (90) 96 02/22/18 04:00 97.0 72 20 116/77 (90) 96 02/21/18 23:46 98.2 81 18 144/83 (103) 95 02/21/18 21:21 Room Air 02/21/18 20:00 98.0 84 18 155/92 (113) 98 02/21/18 16:00 97.9 80 18 121/72 (88) 98 02/21/18 12:00 98.4 74 19 127/69 (88) 98 Height (Feet): 5 Height (Inches): 6.00 Weight (Pounds): 149 HEENT: anicteric Respiratory/Chest: lungs clear Cardiovascular: regular rhythm Abdomen: no organomegaly Laboratory Tests Test 02/22/18 05:00 White Blood Count 7.1 K/UL (4.8-10.8) Red Blood Count 4.20 M/UL (4.70-6.10) L Hemoglobin 12.5 G/DL (14.2-18.0) L Hematocrit 36.4 % (42.0-52.0) L Mean Corpuscular Volume 87 FL (80-99) Mean Corpuscular Hemoglobin 29.7 PG (27.0-31.0) Mean Corpuscular Hemoglobin Concent 34.2 G/DL (32.0-36.0) Red Cell Distribution Width 11.1 % (11.6-14.8) L Platelet Count 175 K/UL (150-450) Mean Platelet Volume 10.9 FL (6.5-10.1) H Neutrophils (%) (Auto) 38.0 % (45.0-75.0) L Lymphocytes (%) (Auto) 40.3 % (20.0-45.0) Monocytes (%) (Auto) 10.7 % (1.0-10.0) H Eosinophils (%) (Auto) 9.6 % (0.0-3.0) H Basophils (%) (Auto) 1.4 % (0.0-2.0) Sodium Level 137 MMOL/L (136-145) Potassium Level 3.9 MMOL/L (3.5-5.1) Chloride Level 105 MMOL/L (98-107) Carbon Dioxide Level 24 MMOL/L (21-32) Anion Gap 8 mmol/L (5-15) Blood Urea Nitrogen 47 mg/dL (7-18) H Creatinine 2.8 MG/DL (0.55-1.30) H Estimat Glomerular Filtration Rate mL/min (>60) Glucose Level 176 MG/DL (74-106) H Calcium Level 8.6 MG/DL (8.5-10.1) Current Medications Medications (Trade) Dose Ordered Sig/Venessa Route PRN Reason Start Time Stop Time Status Last Admin Dose Admin Acetaminophen (Tylenol) 650 mg Q4H PRN ORAL fever 02/17/18 16:29 03/18/18 16:28 Allopurinol (Zyloprim) 200 mg DAILY ORAL 02/18/18 09:00 03/20/18 08:59 02/22/18 08:02 Chlorhexidine Gluconate (Kelsea-Hex 2%) 1 applic DAILY@1999 TOPIC 02/19/18 20:00 03/21/18 19:59 02/21/18 20:17 Dextrose (Dextrose 50%) 25 ml Q30M PRN IV Hypoglycemia 02/17/18 16:29 03/19/18 16:28 Dextrose (Dextrose 50%) 50 ml Q30M PRN IV Hypoglycemia 02/17/18 16:30 03/19/18 06:59 Docusate Sodium (Colace) 100 mg THREE TIMES A DAY ORAL 02/17/18 18:00 03/19/18 17:59 02/22/18 08:01 Finasteride (Proscar) 5 mg DAILY ORAL 02/18/18 09:00 03/19/18 08:59 02/22/18 08:02 Heparin Sodium (Porcine) (Heparin 5000 units/ml) 5,000 units EVERY 12 HOURS SUBQ 02/17/18 21:00 03/18/18 20:59 02/22/18 08:09 Insulin Aspart (NovoLOG) BEFORE MEALS AND HS SUBQ 02/17/18 16:30 03/18/18 16:29 02/22/18 05:47 Insulin Aspart (NovoLOG) 8 units NOVOTIAC SUBQ 02/20/18 11:50 03/19/18 07:59 02/22/18 05:47 Insulin Detemir (Levemir) 24 units DAILY SUBQ 02/20/18 09:00 03/19/18 08:59 02/22/18 08:08 Meropenem 500 mg/ Sodium Chloride 55 ml @ 110 mls/hr EVERY 12 HOURS IVPB 02/17/18 21:00 02/26/18 20:59 02/22/18 09:00 Morphine Sulfate (Morphine Sulfate) 2 mg Q4H PRN IVP Moderate Pain (Pain Scale 4-6) 02/17/18 16:30 02/23/18 16:29 02/19/18 17:05 Nitroglycerin (Ntg) 0.4 mg Q5M PRN SL Prn Chest Pain 02/17/18 16:30 03/18/18 14:29 Ondansetron HCl (Zofran) 4 mg Q6H PRN IVP Nausea & Vomiting 02/17/18 16:30 03/18/18 16:29 Polyethylene Glycol (Miralax) 17 gm DAILYPRN PRN ORAL Constipation 02/17/18 16:30 03/19/18 16:29 Sodium Chloride 1,000 ml @ 75 mls/hr [id number] IV 02/18/18 08:00 03/20/18 07:59 02/22/18 08:02 Tamsulosin HCl (Flomax) 0.4 mg BID ORAL 02/18/18 09:00 03/20/18 08:59 02/22/18 08:01 Temazepam (Restoril) 15 mg HSPRN PRN ORAL Insomnia 02/17/18 16:31 02/24/18 16:30 02/21/18 20:17 Deshaun Cheung MD Feb 22, 2018 09:47
--- NOTE | 2018-02-22 10:20 | Nephrology Progress Note ---
Assessment/Plan Problem List: (1) Acute on chronic renal failure (2) Hyperglycemia (3) Dehydration (4) UTI (urinary tract infection) (5) Urinary retention Assessment: 150 cc post Assessment Acute on Chronic Renal failure- Cr lower 4.9 to 2.8 Hyperglycemia HyperUrecemia UTI Proteinuria and HypoAlbuminemia Plan DC Planning Meanwhile: Flomax BS control Monitor renal parameters 2D Echo pending 70% ejFx Kidney HIEN no hydro , Posterior bladder wall thickening versus debris per orders Subjective ROS Limited/Unobtainable: No Constitutional: Reports: malaise Objective Objective Last 24 Hour Vital Signs Date Time Temp Pulse Resp B/P (MAP) Pulse Ox O2 Delivery O2 Flow Rate FiO2 02/22/18 09:00 Room Air 02/22/18 08:00 98.1 86 16 138/66 (90) 96 02/22/18 04:00 97.0 72 20 116/77 (90) 96 02/21/18 23:46 98.2 81 18 144/83 (103) 95 02/21/18 21:21 Room Air 02/21/18 20:00 98.0 84 18 155/92 (113) 98 02/21/18 16:00 97.9 80 18 121/72 (88) 98 02/21/18 12:00 98.4 74 19 127/69 (88) 98 Intake and Output 02/21/18 02/22/18 19:00 07:00 Intake Total 1540 ml 1030 ml Balance 1540 ml 1030 ml Intake Oral 660 ml 150 ml IV Total 880 ml 880 ml # Voids 5 3 # Bowel Movements 2 Laboratory Tests 02/22/18 05:00: White Blood Count 7.1, Red Blood Count 4.20L, Hemoglobin 12.5L, Hematocrit 36.4L , Mean Corpuscular Volume 87, Mean Corpuscular Hemoglobin 29.7, Mean Corpuscular Hemoglobin Concent 34.2, Red Cell Distribution Width 11.1L, Platelet Count 175, Mean Platelet Volume 10.9H, Neutrophils (%) (Auto) 38.0L, Lymphocytes (%) (Auto) 40.3, Monocytes (%) (Auto) 10.7H, Eosinophils (%) (Auto) 9.6H, Basophils (%) (Auto) 1.4, Sodium Level 137, Potassium Level 3.9, Chloride Level 105, Carbon Dioxide Level 24, Anion Gap 8, Blood Urea Nitrogen 47H, Creatinine 2.8H, Estimat Glomerular Filtration Rate , Glucose Level 176H, Calcium Level 8.6 Height (Feet): 5 Height (Inches): 6.00 Weight (Pounds): 149 General Appearance: no apparent distress Cardiovascular: normal rate Abdomen: soft Objective no change Guilherme Ernandez MD Feb 22, 2018 10:20
[2018-02-22 12:00] VITALS: BP 145/90
[2018-02-22] MEDS ORDERED: 1/2 NS 1000ml IV ONE (14:37)
--- NOTE | 2018-02-22 15:02 | General Progress Note ---
Assessment/Plan Problem List: (1) Stage 4 chronic kidney disease ICD Codes: N18.4 - Chronic kidney disease, stage 4 (severe) SNOMED: 257304803 (2) Diabetes mellitus ICD Codes: E11.9 - Type 2 diabetes mellitus without complications SNOMED: 08737908 (3) Hyperglycemia ICD Codes: R73.9 - Hyperglycemia, unspecified SNOMED: 15462402 Assessment/Plan continue Levemir 24 units daily continue Novolog 8 units ac tid + NSSI ac / hs Subjective Allergies: Coded Allergies: PENICILLINS (Verified Allergy, Unknown, 01/10/18) All Systems: reviewed and negative except above Subjective events noted Objective Last 24 Hour Vital Signs Date Time Temp Pulse Resp B/P (MAP) Pulse Ox O2 Delivery O2 Flow Rate FiO2 02/22/18 12:00 98.1 73 16 145/90 (108) 97 02/22/18 09:00 Room Air 02/22/18 08:00 98.1 86 16 138/66 (90) 96 02/22/18 04:00 97.0 72 20 116/77 (90) 96 02/21/18 23:46 98.2 81 18 144/83 (103) 95 02/21/18 21:21 Room Air 02/21/18 20:00 98.0 84 18 155/92 (113) 98 02/21/18 16:00 97.9 80 18 121/72 (88) 98 Intake and Output 02/21/18 02/22/18 19:00 07:00 Intake Total 1540 ml 1030 ml Balance 1540 ml 1030 ml Intake Oral 660 ml 150 ml IV Total 880 ml 880 ml # Voids 5 3 # Bowel Movements 2 Laboratory Tests 02/22/18 05:00: White Blood Count 7.1, Red Blood Count 4.20L, Hemoglobin 12.5L, Hematocrit 36.4L , Mean Corpuscular Volume 87, Mean Corpuscular Hemoglobin 29.7, Mean Corpuscular Hemoglobin Concent 34.2, Red Cell Distribution Width 11.1L, Platelet Count 175, Mean Platelet Volume 10.9H, Neutrophils (%) (Auto) 38.0L, Lymphocytes (%) (Auto) 40.3, Monocytes (%) (Auto) 10.7H, Eosinophils (%) (Auto) 9.6H, Basophils (%) (Auto) 1.4, Sodium Level 137, Potassium Level 3.9, Chloride Level 105, Carbon Dioxide Level 24, Anion Gap 8, Blood Urea Nitrogen 47H, Creatinine 2.8H, Estimat Glomerular Filtration Rate , Glucose Level 176H, Calcium Level 8.6 Height (Feet): 5 Height (Inches): 6.00 Weight (Pounds): 149 General Appearance: no apparent distress Neck: normal alignment Cardiovascular: normal peripheral pulses Respiratory/Chest: lungs clear Abdomen: normal bowel sounds Edema: no edema noted Arm (L), no edema noted Arm (R), no edema noted Leg (L), no edema noted Leg (R), no edema noted Pedal (L), no edema noted Pedal (R), no edema noted Generalized Objective Current Medications Medications (Trade) Dose Ordered Sig/Venessa Route PRN Reason Start Time Stop Time Status Last Admin Dose Admin Acetaminophen (Tylenol) 650 mg Q4H PRN ORAL fever 02/17/18 16:29 03/18/18 16:28 Allopurinol (Zyloprim) 200 mg DAILY ORAL 02/18/18 09:00 03/20/18 08:59 02/22/18 08:02 Chlorhexidine Gluconate (Kelsea-Hex 2%) 1 applic DAILY@2000 TOPIC 02/19/18 20:00 03/21/18 19:59 02/21/18 20:17 Dextrose (Dextrose 50%) 25 ml Q30M PRN IV Hypoglycemia 02/17/18 16:29 03/19/18 16:28 Dextrose (Dextrose 50%) 50 ml Q30M PRN IV Hypoglycemia 02/17/18 16:30 03/19/18 06:59 Docusate Sodium (Colace) 100 mg THREE TIMES A DAY ORAL 02/17/18 18:00 03/19/18 17:59 02/22/18 13:07 Finasteride (Proscar) 5 mg DAILY ORAL 02/18/18 09:00 03/19/18 08:59 02/22/18 08:02 Heparin Sodium (Porcine) (Heparin 5000 units/ml) 5,000 units EVERY 12 HOURS SUBQ 02/17/18 21:00 03/18/18 20:59 02/22/18 08:09 Insulin Aspart (NovoLOG) BEFORE MEALS AND HS SUBQ 02/17/18 16:30 03/18/18 16:29 02/22/18 11:52 Insulin Aspart (NovoLOG) 8 units NOVOTIAC SUBQ 02/20/18 11:50 03/19/18 07:59 02/22/18 11:51 Insulin Detemir (Levemir) 24 units DAILY SUBQ 02/20/18 09:00 03/19/18 08:59 02/22/18 08:08 Meropenem 500 mg/ Sodium Chloride 55 ml @ 110 mls/hr EVERY 12 HOURS IVPB 02/17/18 21:00 02/26/18 20:59 02/22/18 09:00 Morphine Sulfate (Morphine Sulfate) 2 mg Q4H PRN IVP Moderate Pain (Pain Scale 4-6) 02/17/18 16:30 02/23/18 16:29 02/19/18 17:05 Nitroglycerin (Ntg) 0.4 mg Q5M PRN SL Prn Chest Pain 02/17/18 16:30 03/18/18 14:29 Ondansetron HCl (Zofran) 4 mg Q6H PRN IVP Nausea & Vomiting 02/17/18 16:30 03/18/18 16:29 Polyethylene Glycol (Miralax) 17 gm DAILYPRN PRN ORAL Constipation 02/17/18 16:30 03/19/18 16:29 Sodium Chloride 1,000 ml @ 75 mls/hr [id number] IV 02/18/18 08:00 03/20/18 07:59 02/22/18 08:02 Tamsulosin HCl (Flomax) 0.4 mg BID ORAL 02/18/18 09:00 03/20/18 08:59 02/22/18 08:01 Temazepam (Restoril) 15 mg HSPRN PRN ORAL Insomnia 02/17/18 16:31 02/24/18 16:30 02/21/18 20:17 Item Value Date Time Bedside Blood Glucose 261 mg/dl H 02/22/18 1152 Bedside Blood Glucose 171 mg/dl H 02/22/18 0808 Bedside Blood Glucose 171 mg/dl H 02/22/18 0609 Bedside Blood Glucose 181 mg/dl H 02/21/18 2040 Bedside Blood Glucose 187 mg/dl H 02/21/18 1841 Bedside Blood Glucose 300 mg/dl H 02/21/18 1230 Bedside Blood Glucose 171 mg/dl H 02/21/18 0845 Reji Correa MD Feb 22, 2018 15:02
[2018-02-22 16:00] VITALS: BP 110/62
[2018-02-22 20:00] VITALS: BP 137/72
[2018-02-22] MEDS: Dyna-Hex 2% Top Sol 2oz TOPIC SCH (20:54)
[2018-02-23] VITALS: BP 131/72
[2018-02-23 04:00] VITALS: BP 136/66
[2018-02-23] MEDS: NovoLOG Insulin Flexpen SUBQ SCH ×7 (05:59→20:17)
[2018-02-23 08:00] VITALS: BP 156/85
[2018-02-23] MEDS: Docusate 100mg cap ORAL SCH ×3 (08:07→17:40)
[2018-02-23] MEDS: Tamsulosin 0.4mg cap ORAL SCH ×2 (08:08→17:40)
[2018-02-23] MEDS: Meropenem 500 MG in NS 55 ML IVPB SCH ×2 (08:08→20:08)
[2018-02-23] MEDS: Allopurinol 100mg Tab ORAL SCH (08:08)
--- NOTE | 2018-02-23 08:14 | General Progress Note ---
Assessment/Plan Problem List: (1) Diabetes mellitus ICD Codes: E11.9 - Type 2 diabetes mellitus without complications SNOMED: 72062183 (2) Acute on chronic renal failure ICD Codes: N17.9 - Acute kidney failure, unspecified; N18.9 - Chronic kidney disease, unspecified SNOMED: 684106216 (3) UTI (urinary tract infection) ICD Codes: N39.0 - Urinary tract infection, site not specified SNOMED: 96921463 (4) Hyperglycemia ICD Codes: R73.9 - Hyperglycemia, unspecified SNOMED: 50667442 (5) Dehydration ICD Codes: E86.0 - Dehydration SNOMED: 48786374 Status: stable, progressing Assessment/Plan ot pt diet abx cbc bmp am dc to snf if clear Subjective Constitutional: Reports: weakness Allergies: Coded Allergies: PENICILLINS (Verified Allergy, Unknown, 01/10/18) All Systems: reviewed and negative except above Subjective sleepy calm Objective Last 24 Hour Vital Signs Date Time Temp Pulse Resp B/P (MAP) Pulse Ox O2 Delivery O2 Flow Rate FiO2 02/23/18 04:00 98.0 70 16 136/66 (89) 95 02/23/18 00:00 98.4 69 19 131/72 (91) 98 02/22/18 21:00 Room Air 02/22/18 20:00 98.2 70 19 137/72 (93) 96 02/22/18 16:00 99.1 84 16 110/62 (78) 97 02/22/18 12:00 98.1 73 16 145/90 (108) 97 02/22/18 09:00 Room Air Intake and Output 02/22/18 02/23/18 19:00 07:00 Intake Total 725 ml 55 ml Output Total 900 ml Balance 725 ml -845 ml Intake Oral 220 ml IV Total 505 ml 55 ml Output Urine Total 900 ml # Voids 3 Height (Feet): 5 Height (Inches): 6.00 Weight (Pounds): 149 General Appearance: lethargic, confused EENT: normal ENT inspection Neck: normal alignment Cardiovascular: normal peripheral pulses, normal rate, regular rhythm Respiratory/Chest: chest wall non-tender, lungs clear Abdomen: normal bowel sounds, non tender, soft Extremities: normal inspection Edema: no edema noted Arm (L), no edema noted Arm (R), no edema noted Leg (L), no edema noted Leg (R), no edema noted Pedal (L), no edema noted Pedal (R), no edema noted Generalized Neurologic: motor weakness Skin: normal pigmentation, warm/dry Kevon Viera DO Feb 23, 2018 08:14
[2018-02-23] MEDS ORDERED: Tubing IV Secondary IV ONE (08:17)
[2018-02-23] MEDS ORDERED: NS 275ml ONE (08:17)
[2018-02-23] MEDS: Levemir Flexpen SUBQ SCH (08:21)
[2018-02-23] MEDS: Heparin 5000 units/ml inj SUBQ SCH ×2 (08:22→20:17)
--- NOTE | 2018-02-23 08:31 | General Progress Note ---
Assessment/Plan Problem List: (1) Stage 4 chronic kidney disease ICD Codes: N18.4 - Chronic kidney disease, stage 4 (severe) SNOMED: 950388420 (2) Diabetes mellitus ICD Codes: E11.9 - Type 2 diabetes mellitus without complications SNOMED: 90238819 (3) Hyperglycemia ICD Codes: R73.9 - Hyperglycemia, unspecified SNOMED: 49439840 Assessment/Plan continue Levemir 24 units daily continue Novolog 8 units ac tid + NSSI ac / hs Subjective Allergies: Coded Allergies: PENICILLINS (Verified Allergy, Unknown, 01/10/18) All Systems: reviewed and negative except above Subjective events noted Objective Last 24 Hour Vital Signs Date Time Temp Pulse Resp B/P (MAP) Pulse Ox O2 Delivery O2 Flow Rate FiO2 02/23/18 04:00 98.0 70 16 136/66 (89) 95 02/23/18 00:00 98.4 69 19 131/72 (91) 98 02/22/18 21:00 Room Air 02/22/18 20:00 98.2 70 19 137/72 (93) 96 02/22/18 16:00 99.1 84 16 110/62 (78) 97 02/22/18 12:00 98.1 73 16 145/90 (108) 97 02/22/18 09:00 Room Air Intake and Output 02/22/18 02/23/18 19:00 07:00 Intake Total 725 ml 55 ml Output Total 900 ml Balance 725 ml -845 ml Intake Oral 220 ml IV Total 505 ml 55 ml Output Urine Total 900 ml # Voids 3 Height (Feet): 5 Height (Inches): 6.00 Weight (Pounds): 149 General Appearance: no apparent distress Neck: normal alignment Cardiovascular: normal rate Respiratory/Chest: lungs clear Abdomen: normal bowel sounds Pelvis: normal external exam Edema: no edema noted Arm (L), no edema noted Arm (R), no edema noted Leg (L), no edema noted Leg (R), no edema noted Pedal (L), no edema noted Pedal (R), no edema noted Generalized Objective Current Medications Medications (Trade) Dose Ordered Sig/Venessa Route PRN Reason Start Time Stop Time Status Last Admin Dose Admin Acetaminophen (Tylenol) 650 mg Q4H PRN ORAL fever 02/17/18 16:29 03/18/18 16:28 Allopurinol (Zyloprim) 200 mg DAILY ORAL 02/18/18 09:00 03/20/18 08:59 02/23/18 08:08 Chlorhexidine Gluconate (Kelsea-Hex 2%) 1 applic DAILY@2000 TOPIC 02/19/18 20:00 03/21/18 19:59 02/22/18 20:54 Dextrose (Dextrose 50%) 25 ml Q30M PRN IV Hypoglycemia 02/17/18 16:29 03/19/18 16:28 Dextrose (Dextrose 50%) 50 ml Q30M PRN IV Hypoglycemia 02/17/18 16:30 03/19/18 06:59 Docusate Sodium (Colace) 100 mg THREE TIMES A DAY ORAL 02/17/18 18:00 03/19/18 17:59 02/23/18 08:07 Finasteride (Proscar) 5 mg DAILY ORAL 02/18/18 09:00 03/19/18 08:59 02/23/18 08:07 Heparin Sodium (Porcine) (Heparin 5000 units/ml) 5,000 units EVERY 12 HOURS SUBQ 02/17/18 21:00 03/18/18 20:59 02/23/18 08:22 Insulin Aspart (NovoLOG) BEFORE MEALS AND HS SUBQ 02/17/18 16:30 03/18/18 16:29 02/23/18 05:59 Insulin Aspart (NovoLOG) 8 units NOVOTIAC SUBQ 02/20/18 11:50 03/19/18 07:59 02/23/18 05:59 Insulin Detemir (Levemir) 24 units DAILY SUBQ 02/20/18 09:00 03/19/18 08:59 02/23/18 08:21 Meropenem 500 mg/ Sodium Chloride 55 ml @ 110 mls/hr EVERY 12 HOURS IVPB 02/17/18 21:00 02/26/18 20:59 02/23/18 08:08 Morphine Sulfate (Morphine Sulfate) 2 mg Q4H PRN IVP Moderate Pain (Pain Scale 4-6) 02/17/18 16:30 02/23/18 16:29 02/19/18 17:05 Nitroglycerin (Ntg) 0.4 mg Q5M PRN SL Prn Chest Pain 02/17/18 16:30 03/18/18 14:29 Ondansetron HCl (Zofran) 4 mg Q6H PRN IVP Nausea & Vomiting 02/17/18 16:30 03/18/18 16:29 Polyethylene Glycol (Miralax) 17 gm DAILYPRN PRN ORAL Constipation 02/17/18 16:30 03/19/18 16:29 Tamsulosin HCl (Flomax) 0.4 mg BID ORAL 02/18/18 09:00 03/20/18 08:59 02/23/18 08:08 Temazepam (Restoril) 15 mg HSPRN PRN ORAL Insomnia 02/17/18 16:31 02/24/18 16:30 02/22/18 20:53 Item Value Date Time Bedside Blood Glucose 130 mg/dl H 02/23/18 0821 Bedside Blood Glucose 130 mg/dl H 02/23/18 0603 Bedside Blood Glucose 203 mg/dl H 02/22/18 2111 Bedside Blood Glucose 92 mg/dl 02/22/18 1639 Bedside Blood Glucose 261 mg/dl H 02/22/18 1152 Bedside Blood Glucose 171 mg/dl H 02/22/18 0808 Bedside Blood Glucose 171 mg/dl H 02/22/18 0609 Reji Correa MD Feb 23, 2018 08:31
[2018-02-23 12:01] VITALS: BP 140/95
--- NOTE | 2018-02-23 13:39 | Nephrology Progress Note ---
Assessment/Plan Problem List: (1) Acute on chronic renal failure (2) Hyperglycemia (3) Dehydration (4) UTI (urinary tract infection) (5) Urinary retention Assessment: 150 cc post Assessment Acute on Chronic Renal failure- Cr lower 4.9 to 2.8 Hyperglycemia HyperUrecemia UTI Proteinuria and HypoAlbuminemia Plan DC Planning Meanwhile: Flomax BS control Monitor renal parameters 2D Echo pending 70% ejFx Kidney HIEN no hydro , Posterior bladder wall thickening versus debris per orders Subjective ROS Limited/Unobtainable: No Constitutional: Reports: malaise Objective Objective Last 24 Hour Vital Signs Date Time Temp Pulse Resp B/P (MAP) Pulse Ox O2 Delivery O2 Flow Rate FiO2 02/23/18 12:01 99.5 76 20 140/95 (110) 98 02/23/18 09:00 Room Air 02/23/18 08:00 97.7 87 20 156/85 (108) 95 02/23/18 04:00 98.0 70 16 136/66 (89) 95 02/23/18 00:00 98.4 69 19 131/72 (91) 98 02/22/18 21:00 Room Air 02/22/18 20:00 98.2 70 19 137/72 (93) 96 02/22/18 16:00 99.1 84 16 110/62 (78) 97 Intake and Output 02/22/18 02/23/18 19:00 07:00 Intake Total 725 ml 55 ml Output Total 900 ml Balance 725 ml -845 ml Intake Oral 220 ml IV Total 505 ml 55 ml Output Urine Total 900 ml # Voids 3 Height (Feet): 5 Height (Inches): 6.00 Weight (Pounds): 149 General Appearance: no apparent distress Cardiovascular: tachycardia Respiratory/Chest: decreased breath sounds Abdomen: distended Objective no change Guilherme Ernandez MD Feb 23, 2018 13:39
[2018-02-23] MEDS: Morphine Sulfate 2mg/ml Inj IVP PRN (15:52)
[2018-02-23 16:00] VITALS: BP 139/77
[2018-02-23 20:00] VITALS: BP 150/74
[2018-02-23] MEDS: Dyna-Hex 2% Top Sol 2oz TOPIC SCH (20:08)
[2018-02-24] VITALS: BP 160/90
[2018-02-24 04:00] VITALS: BP 150/80
[2018-02-24] MEDS: NovoLOG Insulin Flexpen SUBQ SCH ×7 (06:03→21:26)
[2018-02-24 06:22] LABS: BASOPHILS % (AUTO) 1.3 % (0.0-2.0); EOSINOPHILS % (AUTO) 7.8 % (0.0-3.0); HEMATOCRIT 37.9 % (42.0-52.0); LYMPHOCYTES % (AUTO) 44.4 % (20.0-45.0); MEAN CORPUSCULAR VOLUME 87 FL (80-99); MONOCYTES % (AUTO) 11.8 % (1.0-10.0); NEUTROPHILS % (AUTO) 34.7 % (45.0-75.0); PLATELET COUNT 190 K/UL (150-450); RED BLOOD COUNT 4.37 M/UL (4.70-6.10); RED CELL DISTRIBUTION WIDTH 11.4 % (11.6-14.8); WHITE BLOOD COUNT 7.8 K/UL (4.8-10.8)
[2018-02-24 06:38] LABS: ALANINE AMINOTRANSFERASE 23 U/L (12-78); ALBUMIN 2.8 G/DL (3.4-5.0); ALBUMIN/GLOBULIN RATIO 0.6 (1.0-2.7); ALKALINE PHOSPHATASE 113 U/L (46-116); ANION GAP 9 mmol/L (5-15); ASPARTATE AMINO TRANSFERASE 26 U/L (15-37); BILIRUBIN,TOTAL 0.5 MG/DL (0.2-1.0); BLOOD UREA NITROGEN 39 mg/dL (7-18); CARBON DIOXIDE 26 MMOL/L (21-32); CHLORIDE 105 MMOL/L (98-107); PHOSPHORUS 4.1 MG/DL (2.5-4.9); POTASSIUM 4.1 MMOL/L (3.5-5.1); SODIUM 140 MMOL/L (136-145)
--- NOTE | 2018-02-24 07:28 | General Progress Note ---
Assessment/Plan Problem List: (1) Stage 4 chronic kidney disease ICD Codes: N18.4 - Chronic kidney disease, stage 4 (severe) SNOMED: 819768060 (2) Diabetes mellitus ICD Codes: E11.9 - Type 2 diabetes mellitus without complications SNOMED: 88568343 (3) Hyperglycemia ICD Codes: R73.9 - Hyperglycemia, unspecified SNOMED: 50176460 Assessment/Plan continue Levemir 24 units daily continue Novolog 8 units ac tid + NSSI ac / hs Subjective Allergies: Coded Allergies: PENICILLINS (Verified Allergy, Unknown, 01/10/18) All Systems: reviewed and negative except above Subjective events noted Objective Last 24 Hour Vital Signs Date Time Temp Pulse Resp B/P (MAP) Pulse Ox O2 Delivery O2 Flow Rate FiO2 02/24/18 04:00 98.1 69 18 150/80 (103) 97 02/24/18 00:00 98.2 76 19 160/90 (113) 97 02/23/18 21:00 Room Air 02/23/18 20:00 98.1 71 17 150/74 (99) 96 02/23/18 16:00 98.5 94 20 139/77 (97) 96 02/23/18 12:01 99.5 76 20 140/95 (110) 98 02/23/18 09:00 Room Air 02/23/18 08:00 97.7 87 20 156/85 (108) 95 Intake and Output 02/23/18 02/24/18 18:59 06:59 Intake Total 940 ml 535 ml Output Total 600 ml Balance 940 ml -65 ml Intake Oral 940 ml 480 ml IV Total 55 ml Output Urine Total 600 ml # Voids 5 2 Laboratory Tests 02/24/18 05:45: White Blood Count 7.8, Red Blood Count 4.37L, Hemoglobin 13.0L, Hematocrit 37.9L , Mean Corpuscular Volume 87, Mean Corpuscular Hemoglobin 29.8, Mean Corpuscular Hemoglobin Concent 34.3, Red Cell Distribution Width 11.4L, Platelet Count 190, Mean Platelet Volume 10.0, Neutrophils (%) (Auto) 34.7L, Lymphocytes (%) (Auto) 44.4, Monocytes (%) (Auto) 11.8H, Eosinophils (%) (Auto) 7.8H, Basophils (%) (Auto) 1.3, Sodium Level 140, Potassium Level 4.1, Chloride Level 105, Carbon Dioxide Level 26, Anion Gap 9, Blood Urea Nitrogen 39H, Creatinine 3.0H, Estimat Glomerular Filtration Rate , Glucose Level 129H, Uric Acid 5.6, Calcium Level 9.0, Phosphorus Level 4.1, Magnesium Level 2.2, Total Bilirubin 0.5, Aspartate Amino Transf (AST/SGOT) 26, Alanine Aminotransferase ( ALT/SGPT) 23, Alkaline Phosphatase 113, Total Protein 7.3, Albumin 2.8L, Globulin 4.5, Albumin/Globulin Ratio 0.6L Height (Feet): 5 Height (Inches): 6.00 Weight (Pounds): 149 General Appearance: no apparent distress Neck: normal alignment Cardiovascular: normal rate Respiratory/Chest: chest wall non-tender Abdomen: normal bowel sounds Objective Current Medications Medications (Trade) Dose Ordered Sig/Vensesa Route PRN Reason Start Time Stop Time Status Last Admin Dose Admin Acetaminophen (Tylenol) 650 mg Q4H PRN ORAL fever 02/17/18 16:29 03/18/18 16:28 Allopurinol (Zyloprim) 200 mg DAILY ORAL 02/18/18 09:00 03/20/18 08:59 02/23/18 08:08 Chlorhexidine Gluconate (Kelsea-Hex 2%) 1 applic DAILY@1999 TOPIC 02/19/18 20:00 03/21/18 19:59 02/23/18 20:08 Dextrose (Dextrose 50%) 25 ml Q30M PRN IV Hypoglycemia 02/17/18 16:29 03/19/18 16:28 Dextrose (Dextrose 50%) 50 ml Q30M PRN IV Hypoglycemia 02/17/18 16:30 03/19/18 06:59 Docusate Sodium (Colace) 100 mg THREE TIMES A DAY ORAL 02/17/18 18:00 03/19/18 17:59 02/23/18 17:40 Finasteride (Proscar) 5 mg DAILY ORAL 02/18/18 09:00 03/19/18 08:59 02/23/18 08:07 Heparin Sodium (Porcine) (Heparin 5000 units/ml) 5,000 units EVERY 12 HOURS SUBQ 02/17/18 21:00 03/18/18 20:59 02/23/18 20:17 Insulin Aspart (NovoLOG) BEFORE MEALS AND HS SUBQ 02/17/18 16:30 03/18/18 16:29 02/24/18 06:04 Insulin Aspart (NovoLOG) 8 units NOVOTIAC SUBQ 02/20/18 11:50 03/19/18 07:59 02/24/18 06:03 Insulin Detemir (Levemir) 24 units DAILY SUBQ 02/20/18 09:00 03/19/18 08:59 02/23/18 08:21 Meropenem 500 mg/ Sodium Chloride 55 ml @ 110 mls/hr EVERY 12 HOURS IVPB 02/17/18 21:00 02/26/18 20:59 02/23/18 20:08 Nitroglycerin (Ntg) 0.4 mg Q5M PRN SL Prn Chest Pain 02/17/18 16:30 03/18/18 14:29 Ondansetron HCl (Zofran) 4 mg Q6H PRN IVP Nausea & Vomiting 02/17/18 16:30 03/18/18 16:29 Polyethylene Glycol (Miralax) 17 gm DAILYPRN PRN ORAL Constipation 02/17/18 16:30 03/19/18 16:29 Tamsulosin HCl (Flomax) 0.4 mg BID ORAL 02/18/18 09:00 03/20/18 08:59 02/23/18 17:40 Temazepam (Restoril) 15 mg HSPRN PRN ORAL Insomnia 02/17/18 16:31 02/24/18 16:30 02/23/18 20:08 Item Value Date Time Bedside Blood Glucose 120 mg/dl 02/24/18 06 Bedside Blood Glucose 113 mg/dl 02/23/182016 Bedside Blood Glucose 78 mg/dl 02/23/18 174 Bedside Blood Glucose 141 mg/dl H 02/23/18 1223 Bedside Blood Glucose 130 mg/dl H 02/23/18 0821 Bedside Blood Glucose 130 mg/dl H 02/23/18 0603 Reji Correa MD Feb 24, 2018 07:28
[2018-02-24 08:00] VITALS: BP 157/110
[2018-02-24] MEDS: Meropenem 500 MG in NS 55 ML IVPB SCH ×2 (09:16→21:25)
[2018-02-24] MEDS: Docusate 100mg cap ORAL SCH ×3 (09:17→18:59)
[2018-02-24] MEDS: Tamsulosin 0.4mg cap ORAL SCH ×2 (09:18→18:59)
[2018-02-24] MEDS: Allopurinol 100mg Tab ORAL SCH (09:18)
[2018-02-24] MEDS: Levemir Flexpen SUBQ SCH (09:19)
[2018-02-24] MEDS: Heparin 5000 units/ml inj SUBQ SCH ×2 (09:20→21:27)
--- NOTE | 2018-02-24 10:34 | Pulmonology Progress Note ---
Assessment/Plan Problems: (1) Bacteremia (2) Hyperglycemia (3) Acute encephalopathy (4) Stage 4 chronic kidney disease (5) Diabetes mellitus (6) mild vascular dementia Assessment/Plan doing better awaiting final culture results continue iv fluids continue IV abx f/u blood culture results BS improving f/u electrolytes all consults reviewed dc planning Subjective ROS Limited/Unobtainable: No Interval Events: no new complains Allergies: Coded Allergies: PENICILLINS (Verified Allergy, Unknown, 01/10/18) Objective Last 24 Hour Vital Signs Date Time Temp Pulse Resp B/P (MAP) Pulse Ox O2 Delivery O2 Flow Rate FiO2 02/24/18 08:00 97.8 99 18 157/110 (126) 97 02/24/18 04:00 98.1 69 18 150/80 (103) 97 02/24/18 00:00 98.2 76 19 160/90 (113) 97 02/23/18 21:00 Room Air 02/23/18 20:00 98.1 71 17 150/74 (99) 96 02/23/18 16:00 98.5 94 20 139/77 (97) 96 02/23/18 12:01 99.5 76 20 140/95 (110) 98 Intake and Output 02/23/18 02/24/18 19:00 07:00 Intake Total 940 ml 535 ml Output Total 600 ml Balance 940 ml -65 ml Intake Oral 940 ml 480 ml IV Total 55 ml Output Urine Total 600 ml # Voids 5 2 Objective General Appearance: WD/WN HEENT: normocephalic Respiratory/Chest: chest wall non-tender, lungs clear Cardiovascular: normal peripheral pulses, normal rate Abdomen: normal bowel sounds, soft, non tender Genitourinary: normal external genitalia Skin: no rash 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, no motor/sensory deficits Laboratory Tests 02/24/18 05:45: White Blood Count 7.8, Red Blood Count 4.37L, Hemoglobin 13.0L, Hematocrit 37.9L , Mean Corpuscular Volume 87, Mean Corpuscular Hemoglobin 29.8, Mean Corpuscular Hemoglobin Concent 34.3, Red Cell Distribution Width 11.4L, Platelet Count 190, Mean Platelet Volume 10.0, Neutrophils (%) (Auto) 34.7L, Lymphocytes (%) (Auto) 44.4, Monocytes (%) (Auto) 11.8H, Eosinophils (%) (Auto) 7.8H, Basophils (%) (Auto) 1.3, Sodium Level 140, Potassium Level 4.1, Chloride Level 105, Carbon Dioxide Level 26, Anion Gap 9, Blood Urea Nitrogen 39H, Creatinine 3.0H, Estimat Glomerular Filtration Rate , Glucose Level 129H, Uric Acid 5.6, Calcium Level 9.0, Phosphorus Level 4.1, Magnesium Level 2.2, Total Bilirubin 0.5, Aspartate Amino Transf (AST/SGOT) 26, Alanine Aminotransferase ( ALT/SGPT) 23, Alkaline Phosphatase 113, Total Protein 7.3, Albumin 2.8L, Globulin 4.5, Albumin/Globulin Ratio 0.6L Current Medications Medications (Trade) Dose Ordered Sig/Venessa Route PRN Reason Start Time Stop Time Status Last Admin Dose Admin Acetaminophen (Tylenol) 650 mg Q4H PRN ORAL fever 02/17/18 16:29 03/18/18 16:28 Allopurinol (Zyloprim) 200 mg DAILY ORAL 02/18/18 09:00 03/20/18 08:59 02/24/18 09:18 Chlorhexidine Gluconate (Kelsea-Hex 2%) 1 applic DAILY@1999 TOPIC 02/19/18 20:00 03/21/18 19:59 02/23/18 20:08 Dextrose (Dextrose 50%) 25 ml Q30M PRN IV Hypoglycemia 02/17/18 16:29 03/19/18 16:28 Dextrose (Dextrose 50%) 50 ml Q30M PRN IV Hypoglycemia 02/17/18 16:30 03/19/18 06:59 Docusate Sodium (Colace) 100 mg THREE TIMES A DAY ORAL 02/17/18 18:00 03/19/18 17:59 02/24/18 09:17 Finasteride (Proscar) 5 mg DAILY ORAL 02/18/18 09:00 03/19/18 08:59 02/24/18 09:18 Heparin Sodium (Porcine) (Heparin 5000 units/ml) 5,000 units EVERY 12 HOURS SUBQ 02/17/18 21:00 03/18/18 20:59 02/24/18 09:20 Insulin Aspart (NovoLOG) BEFORE MEALS AND HS SUBQ 02/17/18 16:30 03/18/18 16:29 02/24/18 06:04 Insulin Aspart (NovoLOG) 8 units NOVOTIAC SUBQ 02/20/18 11:50 03/19/18 07:59 02/24/18 06:03 Insulin Detemir (Levemir) 24 units DAILY SUBQ 02/20/18 09:00 03/19/18 08:59 02/24/18 09:19 Meropenem 500 mg/ Sodium Chloride 55 ml @ 110 mls/hr EVERY 12 HOURS IVPB 02/17/18 21:00 02/26/18 20:59 02/24/18 09:16 Nitroglycerin (Ntg) 0.4 mg Q5M PRN SL Prn Chest Pain 02/17/18 16:30 03/18/18 14:29 Ondansetron HCl (Zofran) 4 mg Q6H PRN IVP Nausea & Vomiting 02/17/18 16:30 03/18/18 16:29 Polyethylene Glycol (Miralax) 17 gm DAILYPRN PRN ORAL Constipation 02/17/18 16:30 03/19/18 16:29 Tamsulosin HCl (Flomax) 0.4 mg BID ORAL 02/18/18 09:00 03/20/18 08:59 02/24/18 09:18 Temazepam (Restoril) 15 mg HSPRN PRN ORAL Insomnia 02/17/18 16:31 02/24/18 16:30 02/23/18 20:08 Joyce Winters MD Feb 24, 2018 10:34
--- NOTE | 2018-02-24 11:03 | Nephrology Progress Note ---
Assessment/Plan Problem List: (1) Acute on chronic renal failure (2) Hyperglycemia (3) Dehydration (4) UTI (urinary tract infection) (5) Urinary retention Assessment: 150 cc post Assessment Acute on Chronic Renal failure- Cr lower 4.9 to 3 Hyperglycemia HyperUrecemia UTI Proteinuria and HypoAlbuminemia Plan DC Planning Meanwhile: Flomax BS control Monitor renal parameters 2D Echo pending 70% ejFx Kidney HIEN no hydro , Posterior bladder wall thickening versus debris per orders Subjective ROS Limited/Unobtainable: No Objective Objective Last 24 Hour Vital Signs Date Time Temp Pulse Resp B/P (MAP) Pulse Ox O2 Delivery O2 Flow Rate FiO2 02/24/18 08:00 97.8 99 18 157/110 (126) 97 02/24/18 04:00 98.1 69 18 150/80 (103) 97 02/24/18 00:00 98.2 76 19 160/90 (113) 97 02/23/18 21:00 Room Air 02/23/18 20:00 98.1 71 17 150/74 (99) 96 02/23/18 16:00 98.5 94 20 139/77 (97) 96 02/23/18 12:01 99.5 76 20 140/95 (110) 98 Intake and Output 02/23/18 02/24/18 19:00 07:00 Intake Total 940 ml 535 ml Output Total 600 ml Balance 940 ml -65 ml Intake Oral 940 ml 480 ml IV Total 55 ml Output Urine Total 600 ml # Voids 5 2 Laboratory Tests 02/24/18 05:45: White Blood Count 7.8, Red Blood Count 4.37L, Hemoglobin 13.0L, Hematocrit 37.9L , Mean Corpuscular Volume 87, Mean Corpuscular Hemoglobin 29.8, Mean Corpuscular Hemoglobin Concent 34.3, Red Cell Distribution Width 11.4L, Platelet Count 190, Mean Platelet Volume 10.0, Neutrophils (%) (Auto) 34.7L, Lymphocytes (%) (Auto) 44.4, Monocytes (%) (Auto) 11.8H, Eosinophils (%) (Auto) 7.8H, Basophils (%) (Auto) 1.3, Sodium Level 140, Potassium Level 4.1, Chloride Level 105, Carbon Dioxide Level 26, Anion Gap 9, Blood Urea Nitrogen 39H, Creatinine 3.0H, Estimat Glomerular Filtration Rate , Glucose Level 129H, Uric Acid 5.6, Calcium Level 9.0, Phosphorus Level 4.1, Magnesium Level 2.2, Total Bilirubin 0.5, Aspartate Amino Transf (AST/SGOT) 26, Alanine Aminotransferase ( ALT/SGPT) 23, Alkaline Phosphatase 113, Total Protein 7.3, Albumin 2.8L, Globulin 4.5, Albumin/Globulin Ratio 0.6L Height (Feet): 5 Height (Inches): 6.00 Weight (Pounds): 149 General Appearance: no apparent distress Cardiovascular: normal rate Respiratory/Chest: decreased breath sounds Abdomen: soft Objective no change Guilherme Ernandez MD Feb 24, 2018 11:03
--- NOTE | 2018-02-24 11:12 | Infectious Diseases Prog Note ---
Assessment/Plan Assessment/Plan ASSESSMENT: The patient is an 82-year-old male with UTI. UCX ESBL E. coli. Ultrasound of kidney on US kid : no hydroureter doubt prostatitis.: PSA : nl +ve blood cx ( 02/17) 04/09 : CoNS Contaminant +ve blood Cx ( 02/17) 04/09 ESBL EColi Leukocytosis, SP EF: 70% JENNY / CKD. Cr improving Bilateral hearing loss Dementia BPH Hypertension History of hydronephrosis Diabetes CKD Allergic to penicillin? (severity of reaction), the patient tolerated Carbapenem PLAN: Cont pt on on IV meropenem day # , , ok to DC on Invanz 1 gm daily to complete the course 02/19 Sp IV Vanco d# 2 Monitor CBC Monitor BMP Nephrology follow up Subjective Allergies: Coded Allergies: PENICILLINS (Verified Allergy, Unknown, 01/10/18) Subjective sleeping comfortably Objective Vital Signs Last 24 Hour Vital Signs Date Time Temp Pulse Resp B/P (MAP) Pulse Ox O2 Delivery O2 Flow Rate FiO2 02/24/18 08:00 97.8 99 18 157/110 (126) 97 02/24/18 04:00 98.1 69 18 150/80 (103) 97 02/24/18 00:00 98.2 76 19 160/90 (113) 97 02/23/18 21:00 Room Air 02/23/18 20:00 98.1 71 17 150/74 (99) 96 02/23/18 16:00 98.5 94 20 139/77 (97) 96 02/23/18 12:01 99.5 76 20 140/95 (110) 98 Height (Feet): 5 Height (Inches): 6.00 Weight (Pounds): 149 HEENT: anicteric Respiratory/Chest: no respiratory distress Cardiovascular: regular rhythm Abdomen: no organomegaly Laboratory Tests Test 02/24/18 05:45 White Blood Count 7.8 K/UL (4.8-10.8) Red Blood Count 4.37 M/UL (4.70-6.10) L Hemoglobin 13.0 G/DL (14.2-18.0) L Hematocrit 37.9 % (42.0-52.0) L Mean Corpuscular Volume 87 FL (80-99) Mean Corpuscular Hemoglobin 29.8 PG (27.0-31.0) Mean Corpuscular Hemoglobin Concent 34.3 G/DL (32.0-36.0) Red Cell Distribution Width 11.4 % (11.6-14.8) L Platelet Count 190 K/UL (150-450) Mean Platelet Volume 10.0 FL (6.5-10.1) Neutrophils (%) (Auto) 34.7 % (45.0-75.0) L Lymphocytes (%) (Auto) 44.4 % (20.0-45.0) Monocytes (%) (Auto) 11.8 % (1.0-10.0) H Eosinophils (%) (Auto) 7.8 % (0.0-3.0) H Basophils (%) (Auto) 1.3 % (0.0-2.0) Sodium Level 140 MMOL/L (136-145) Potassium Level 4.1 MMOL/L (3.5-5.1) Chloride Level 105 MMOL/L (98-107) Carbon Dioxide Level 26 MMOL/L (21-32) Anion Gap 9 mmol/L (5-15) Blood Urea Nitrogen 39 mg/dL (7-18) H Creatinine 3.0 MG/DL (0.55-1.30) H Estimat Glomerular Filtration Rate mL/min (>60) Glucose Level 129 MG/DL (74-106) H Uric Acid 5.6 MG/DL (2.6-7.2) Calcium Level 9.0 MG/DL (8.5-10.1) Phosphorus Level 4.1 MG/DL (2.5-4.9) Magnesium Level 2.2 MG/DL (1.8-2.4) Total Bilirubin 0.5 MG/DL (0.2-1.0) Aspartate Amino Transf (AST/SGOT) 26 U/L (15-37) Alanine Aminotransferase (ALT/SGPT) 23 U/L (12-78) Alkaline Phosphatase 113 U/L (46-116) Total Protein 7.3 G/DL (6.4-8.2) Albumin 2.8 G/DL (3.4-5.0) L Globulin 4.5 g/dL Albumin/Globulin Ratio 0.6 (1.0-2.7) L Current Medications Medications (Trade) Dose Ordered Sig/Venessa Route PRN Reason Start Time Stop Time Status Last Admin Dose Admin Acetaminophen (Tylenol) 650 mg Q4H PRN ORAL fever 02/17/18 16:29 03/18/18 16:28 Allopurinol (Zyloprim) 200 mg DAILY ORAL 02/18/18 09:00 03/20/18 08:59 02/24/18 09:18 Chlorhexidine Gluconate (Kelsea-Hex 2%) 1 applic DAILY@2000 TOPIC 02/19/18 20:00 03/21/18 19:59 02/23/18 20:08 Dextrose (Dextrose 50%) 25 ml Q30M PRN IV Hypoglycemia 02/17/18 16:29 03/19/18 16:28 Dextrose (Dextrose 50%) 50 ml Q30M PRN IV Hypoglycemia 02/17/18 16:30 03/19/18 06:59 Docusate Sodium (Colace) 100 mg THREE TIMES A DAY ORAL 02/17/18 18:00 03/19/18 17:59 02/24/18 09:17 Finasteride (Proscar) 5 mg DAILY ORAL 02/18/18 09:00 03/19/18 08:59 02/24/18 09:18 Heparin Sodium (Porcine) (Heparin 5000 units/ml) 5,000 units EVERY 12 HOURS SUBQ 02/17/18 21:00 03/18/18 20:59 02/24/18 09:20 Insulin Aspart (NovoLOG) BEFORE MEALS AND HS SUBQ 02/17/18 16:30 03/18/18 16:29 02/24/18 06:04 Insulin Aspart (NovoLOG) 8 units NOVOTIAC SUBQ 02/20/18 11:50 03/19/18 07:59 02/24/18 06:03 Insulin Detemir (Levemir) 24 units DAILY SUBQ 02/20/18 09:00 03/19/18 08:59 02/24/18 09:19 Meropenem 500 mg/ Sodium Chloride 55 ml @ 110 mls/hr EVERY 12 HOURS IVPB 02/17/18 21:00 02/26/18 20:59 02/24/18 09:16 Nitroglycerin (Ntg) 0.4 mg Q5M PRN SL Prn Chest Pain 02/17/18 16:30 03/18/18 14:29 Ondansetron HCl (Zofran) 4 mg Q6H PRN IVP Nausea & Vomiting 02/17/18 16:30 03/18/18 16:29 Polyethylene Glycol (Miralax) 17 gm DAILYPRN PRN ORAL Constipation 02/17/18 16:30 03/19/18 16:29 Tamsulosin HCl (Flomax) 0.4 mg BID ORAL 02/18/18 09:00 03/20/18 08:59 02/24/18 09:18 Temazepam (Restoril) 15 mg HSPRN PRN ORAL Insomnia 02/17/18 16:31 02/24/18 16:30 02/23/18 20:08 Deshaun Cheung MD Feb 24, 2018 11:12
[2018-02-24 12:00] VITALS: BP 138/75
--- NOTE | 2018-02-24 12:22 | General Progress Note ---
Assessment/Plan Problem List: (1) Diabetes mellitus ICD Codes: E11.9 - Type 2 diabetes mellitus without complications SNOMED: 59920587 (2) Acute on chronic renal failure ICD Codes: N17.9 - Acute kidney failure, unspecified; N18.9 - Chronic kidney disease, unspecified SNOMED: 348714647 (3) UTI (urinary tract infection) ICD Codes: N39.0 - Urinary tract infection, site not specified SNOMED: 33009444 (4) Hyperglycemia ICD Codes: R73.9 - Hyperglycemia, unspecified SNOMED: 85212923 (5) Dehydration ICD Codes: E86.0 - Dehydration SNOMED: 42915475 Status: stable, progressing Assessment/Plan ot pt diet abx cbc bmp am dc to snf if clear Subjective Constitutional: Reports: weakness Allergies: Coded Allergies: PENICILLINS (Verified Allergy, Unknown, 01/10/18) All Systems: reviewed and negative except above Subjective sleepy calm Objective Last 24 Hour Vital Signs Date Time Temp Pulse Resp B/P (MAP) Pulse Ox O2 Delivery O2 Flow Rate FiO2 02/24/18 08:00 97.8 99 18 157/110 (126) 97 02/24/18 04:00 98.1 69 18 150/80 (103) 97 02/24/18 00:00 98.2 76 19 160/90 (113) 97 02/23/18 21:00 Room Air 02/23/18 20:00 98.1 71 17 150/74 (99) 96 02/23/18 16:00 98.5 94 20 139/77 (97) 96 Intake and Output 02/23/18 02/24/18 19:00 07:00 Intake Total 940 ml 535 ml Output Total 600 ml Balance 940 ml -65 ml Intake Oral 940 ml 480 ml IV Total 55 ml Output Urine Total 600 ml # Voids 5 2 Laboratory Tests 02/24/18 05:45: White Blood Count 7.8, Red Blood Count 4.37L, Hemoglobin 13.0L, Hematocrit 37.9L , Mean Corpuscular Volume 87, Mean Corpuscular Hemoglobin 29.8, Mean Corpuscular Hemoglobin Concent 34.3, Red Cell Distribution Width 11.4L, Platelet Count 190, Mean Platelet Volume 10.0, Neutrophils (%) (Auto) 34.7L, Lymphocytes (%) (Auto) 44.4, Monocytes (%) (Auto) 11.8H, Eosinophils (%) (Auto) 7.8H, Basophils (%) (Auto) 1.3, Sodium Level 140, Potassium Level 4.1, Chloride Level 105, Carbon Dioxide Level 26, Anion Gap 9, Blood Urea Nitrogen 39H, Creatinine 3.0H, Estimat Glomerular Filtration Rate , Glucose Level 129H, Uric Acid 5.6, Calcium Level 9.0, Phosphorus Level 4.1, Magnesium Level 2.2, Total Bilirubin 0.5, Aspartate Amino Transf (AST/SGOT) 26, Alanine Aminotransferase ( ALT/SGPT) 23, Alkaline Phosphatase 113, Total Protein 7.3, Albumin 2.8L, Globulin 4.5, Albumin/Globulin Ratio 0.6L Height (Feet): 5 Height (Inches): 6.00 Weight (Pounds): 149 General Appearance: lethargic EENT: normal ENT inspection Neck: normal alignment Cardiovascular: normal peripheral pulses, normal rate, regular rhythm Respiratory/Chest: chest wall non-tender, lungs clear, normal breath sounds Abdomen: normal bowel sounds, non tender, soft Extremities: normal inspection Edema: no edema noted Arm (L), no edema noted Arm (R), no edema noted Leg (L), no edema noted Leg (R), no edema noted Pedal (L), no edema noted Pedal (R), no edema noted Generalized Neurologic: motor weakness Skin: normal pigmentation, warm/dry Kevon Viera DO Feb 24, 2018 12:22
[2018-02-24 16:00] VITALS: BP 112/57
[2018-02-24 20:00] VITALS: BP 148/82
[2018-02-24] MEDS: Dyna-Hex 2% Top Sol 2oz TOPIC SCH (21:27)
[2018-02-25] VITALS: BP 134/60
[2018-02-25 04:00] VITALS: BP 142/82
[2018-02-25] MEDS: NovoLOG Insulin Flexpen SUBQ SCH ×6 (06:23→17:22)
--- NOTE | 2018-02-25 07:11 | General Progress Note ---
Assessment/Plan Problem List: (1) Stage 4 chronic kidney disease ICD Codes: N18.4 - Chronic kidney disease, stage 4 (severe) SNOMED: 679943070 (2) Diabetes mellitus ICD Codes: E11.9 - Type 2 diabetes mellitus without complications SNOMED: 21468954 (3) Hyperglycemia ICD Codes: R73.9 - Hyperglycemia, unspecified SNOMED: 13948095 Assessment/Plan continue Levemir 24 units daily continue Novolog 8 units ac tid + NSSI ac / hs Subjective Allergies: Coded Allergies: PENICILLINS (Verified Allergy, Unknown, 01/10/18) All Systems: reviewed and negative except above Subjective events noted Objective Last 24 Hour Vital Signs Date Time Temp Pulse Resp B/P (MAP) Pulse Ox O2 Delivery O2 Flow Rate FiO2 02/25/18 04:00 97.8 75 18 142/82 (102) 97 02/25/18 00:00 97.8 64 21 134/60 (84) 97 02/24/18 21:00 Room Air 02/24/18 20:00 97.7 71 16 148/82 (104) 98 02/24/18 16:00 98.1 86 18 112/57 (75) 96 02/24/18 12:00 97.7 71 17 138/75 (96) 98 02/24/18 09:00 Room Air 02/24/18 08:00 97.8 99 18 157/110 (126) 97 Intake and Output 02/24/18 02/25/18 18:59 06:59 Intake Total 55 ml Output Total 800 ml 400 ml Balance -745 ml -400 ml IV Total 55 ml Output Urine Total 800 ml 400 ml # Voids 2 # Bowel Movements 1 Height (Feet): 5 Height (Inches): 6.00 Weight (Pounds): 149 General Appearance: no apparent distress Neck: normal alignment Cardiovascular: normal rate Respiratory/Chest: lungs clear Abdomen: normal bowel sounds Objective Item Value Date Time Bedside Blood Glucose 114 mg/dl 02/25/18 06 Bedside Blood Glucose 119 mg/dl 02/24/18 2126 Bedside Blood Glucose 71 mg/dl 02/24/18 1650 Bedside Blood Glucose 167 mg/dl H 02/24/18 1303 Bedside Blood Glucose 120 mg/dl 02/24/18 0919 Bedside Blood Glucose 120 mg/dl 02/24/18 0619 Current Medications Medications (Trade) Dose Ordered Sig/Venessa Route PRN Reason Start Time Stop Time Status Last Admin Dose Admin Acetaminophen (Tylenol) 650 mg Q4H PRN ORAL fever 02/17/18 16:29 03/18/18 16:28 Allopurinol (Zyloprim) 200 mg DAILY ORAL 02/18/18 09:00 03/20/18 08:59 02/24/18 09:18 Chlorhexidine Gluconate (Kelsea-Hex 2%) 1 applic DAILY@2000 TOPIC 02/19/18 20:00 03/21/18 19:59 02/24/18 21:27 Dextrose (Dextrose 50%) 25 ml Q30M PRN IV Hypoglycemia 02/17/18 16:29 03/19/18 16:28 Dextrose (Dextrose 50%) 50 ml Q30M PRN IV Hypoglycemia 02/17/18 16:30 03/19/18 06:59 Docusate Sodium (Colace) 100 mg THREE TIMES A DAY ORAL 02/17/18 18:00 03/19/18 17:59 02/24/18 18:59 Finasteride (Proscar) 5 mg DAILY ORAL 02/18/18 09:00 03/19/18 08:59 02/24/18 09:18 Heparin Sodium (Porcine) (Heparin 5000 units/ml) 5,000 units EVERY 12 HOURS SUBQ 02/17/18 21:00 03/18/18 20:59 02/24/18 21:27 Insulin Aspart (NovoLOG) BEFORE MEALS AND HS SUBQ 02/17/18 16:30 03/18/18 16:29 02/25/18 06:23 Insulin Aspart (NovoLOG) 8 units NOVOTIAC SUBQ 02/20/18 11:50 03/19/18 07:59 02/25/18 06:23 Insulin Detemir (Levemir) 24 units DAILY SUBQ 02/20/18 09:00 03/19/18 08:59 02/24/18 09:19 Meropenem 500 mg/ Sodium Chloride 55 ml @ 110 mls/hr EVERY 12 HOURS IVPB 02/17/18 21:00 02/26/18 20:59 02/24/18 21:25 Nitroglycerin (Ntg) 0.4 mg Q5M PRN SL Prn Chest Pain 02/17/18 16:30 03/18/18 14:29 Ondansetron HCl (Zofran) 4 mg Q6H PRN IVP Nausea & Vomiting 02/17/18 16:30 03/18/18 16:29 Polyethylene Glycol (Miralax) 17 gm DAILYPRN PRN ORAL Constipation 02/17/18 16:30 03/19/18 16:29 Tamsulosin HCl (Flomax) 0.4 mg BID ORAL 02/18/18 09:00 03/20/18 08:59 02/24/18 18:59 Reji Correa MD Feb 25, 2018 07:11
[2018-02-25 07:34] VITALS: BP 163/83
[2018-02-25 07:48] LABS: BASOPHILS % (AUTO) 1.5 % (0.0-2.0); EOSINOPHILS % (AUTO) 7.2 % (0.0-3.0); HEMOGLOBIN 12.8 G/DL (14.2-18.0); LYMPHOCYTES % (AUTO) 45.9 % (20.0-45.0); MEAN CORPUSCULAR VOLUME 88 FL (80-99); MONOCYTES % (AUTO) 9.2 % (1.0-10.0); NEUTROPHILS % (AUTO) 36.2 % (45.0-75.0); PLATELET COUNT 197 K/UL (150-450); RED BLOOD COUNT 4.23 M/UL (4.70-6.10); RED CELL DISTRIBUTION WIDTH 11.8 % (11.6-14.8); WHITE BLOOD COUNT 7.4 K/UL (4.8-10.8)
[2018-02-25 08:00] LABS: ALANINE AMINOTRANSFERASE 18 U/L (12-78); ALBUMIN 2.7 G/DL (3.4-5.0); ALBUMIN/GLOBULIN RATIO 0.6 (1.0-2.7); ALKALINE PHOSPHATASE 100 U/L (46-116); ANION GAP 9 mmol/L (5-15); ASPARTATE AMINO TRANSFERASE 22 U/L (15-37); BILIRUBIN,TOTAL 0.5 MG/DL (0.2-1.0); BLOOD UREA NITROGEN 41 mg/dL (7-18); CALCIUM 8.8 MG/DL (8.5-10.1); CARBON DIOXIDE 25 MMOL/L (21-32); CHLORIDE 105 MMOL/L (98-107); PHOSPHORUS 4.1 MG/DL (2.5-4.9); POTASSIUM 4.1 MMOL/L (3.5-5.1); SODIUM 139 MMOL/L (136-145)
[2018-02-25] MEDS: Tamsulosin 0.4mg cap ORAL SCH ×2 (08:32→17:18)
[2018-02-25] MEDS: Docusate 100mg cap ORAL SCH ×3 (08:32→17:18)
[2018-02-25] MEDS: Allopurinol 100mg Tab ORAL SCH (08:34)
[2018-02-25] MEDS: Heparin 5000 units/ml inj SUBQ SCH (08:35)
[2018-02-25] MEDS: Meropenem 500 MG in NS 55 ML IVPB SCH (08:36)
[2018-02-25] MEDS: Levemir Flexpen SUBQ SCH (08:40)
--- NOTE | 2018-02-25 09:32 | Nephrology Progress Note ---
Assessment/Plan Problem List: (1) Acute on chronic renal failure (2) Hyperglycemia (3) Dehydration (4) UTI (urinary tract infection) (5) Urinary retention Assessment: 150 cc post Assessment Acute on Chronic Renal failure- Cr lower 4.9 to 3 Hyperglycemia HyperUrecemia UTI Proteinuria and HypoAlbuminemia Plan DC Planning Meanwhile: Flomax BS control Monitor renal parameters 2D Echo pending 70% ejFx Kidney HIEN no hydro , Posterior bladder wall thickening versus debris per orders Subjective ROS Limited/Unobtainable: No Objective Objective Last 24 Hour Vital Signs Date Time Temp Pulse Resp B/P (MAP) Pulse Ox O2 Delivery O2 Flow Rate FiO2 02/25/18 07:34 97.5 84 16 163/83 (109) 97 02/25/18 04:00 97.8 75 18 142/82 (102) 97 02/25/18 00:00 97.8 64 21 134/60 (84) 97 02/24/18 21:00 Room Air 02/24/18 20:00 97.7 71 16 148/82 (104) 98 02/24/18 16:00 98.1 86 18 112/57 (75) 96 02/24/18 12:00 97.7 71 17 138/75 (96) 98 Intake and Output 02/24/18 02/25/18 18:59 06:59 Intake Total 55 ml Output Total 800 ml 400 ml Balance -745 ml -400 ml IV Total 55 ml Output Urine Total 800 ml 400 ml # Voids 2 # Bowel Movements 1 Laboratory Tests 02/25/18 06:05: White Blood Count 7.4, Red Blood Count 4.23L, Hemoglobin 12.8L, Hematocrit 37.0L , Mean Corpuscular Volume 88, Mean Corpuscular Hemoglobin 30.3, Mean Corpuscular Hemoglobin Concent 34.6, Red Cell Distribution Width 11.8, Platelet Count 197, Mean Platelet Volume 9.0, Neutrophils (%) (Auto) 36.2L, Lymphocytes ( %) (Auto) 45.9H, Monocytes (%) (Auto) 9.2, Eosinophils (%) (Auto) 7.2H, Basophils (%) (Auto) 1.5, Sodium Level 139, Potassium Level 4.1, Chloride Level 105, Carbon Dioxide Level 25, Anion Gap 9, Blood Urea Nitrogen 41H, Creatinine 3.0H, Estimat Glomerular Filtration Rate , Glucose Level 136H, Calcium Level 8.8 , Phosphorus Level 4.1, Magnesium Level 2.2, Total Bilirubin 0.5, Aspartate Amino Transf (AST/SGOT) 22, Alanine Aminotransferase (ALT/SGPT) 18, Alkaline Phosphatase 100, Total Protein 7.2, Albumin 2.7L, Globulin 4.5, Albumin/ Globulin Ratio 0.6L Height (Feet): 5 Height (Inches): 6.00 Weight (Pounds): 149 General Appearance: no apparent distress Objective no change Guilherme Ernandez MD Feb 25, 2018 09:32
--- NOTE | 2018-02-25 11:55 | Pulmonology Progress Note ---
Assessment/Plan Problems: (1) Bacteremia (2) Hyperglycemia (3) Acute encephalopathy (4) Stage 4 chronic kidney disease (5) Diabetes mellitus (6) mild vascular dementia Assessment/Plan doing better awaiting final culture results continue iv fluids continue IV abx f/u blood culture results BS improving f/u electrolytes all consults reviewed dc planning Subjective ROS Limited/Unobtainable: No Constitutional: Reports: no symptoms HEENT: Repors: no symptoms Respiratory: Reports: no symptoms Allergies: Coded Allergies: PENICILLINS (Verified Allergy, Unknown, 01/10/18) Objective Last 24 Hour Vital Signs Date Time Temp Pulse Resp B/P (MAP) Pulse Ox O2 Delivery O2 Flow Rate FiO2 02/25/18 09:34 Room Air 02/25/18 09:00 Room Air 02/25/18 07:34 97.5 84 16 163/83 (109) 97 02/25/18 04:00 97.8 75 18 142/82 (102) 97 02/25/18 00:00 97.8 64 21 134/60 (84) 97 02/24/18 21:00 Room Air 02/24/18 20:00 97.7 71 16 148/82 (104) 98 02/24/18 16:00 98.1 86 18 112/57 (75) 96 02/24/18 12:00 97.7 71 17 138/75 (96) 98 Intake and Output 02/24/18 02/25/18 18:59 06:59 Intake Total 55 ml Output Total 800 ml 400 ml Balance -745 ml -400 ml IV Total 55 ml Output Urine Total 800 ml 400 ml # Voids 2 # Bowel Movements 1 Objective General Appearance: WD/WN HEENT: normocephalic Respiratory/Chest: chest wall non-tender, lungs clear Cardiovascular: normal peripheral pulses, normal rate Abdomen: normal bowel sounds, soft, non tender Genitourinary: normal external genitalia Skin: no rash Neurologic/Psychiatric: 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 normal, no motor/sensory deficits Laboratory Tests 02/25/18 06:05: White Blood Count 7.4, Red Blood Count 4.23L, Hemoglobin 12.8L, Hematocrit 37.0L , Mean Corpuscular Volume 88, Mean Corpuscular Hemoglobin 30.3, Mean Corpuscular Hemoglobin Concent 34.6, Red Cell Distribution Width 11.8, Platelet Count 197, Mean Platelet Volume 9.0, Neutrophils (%) (Auto) 36.2L, Lymphocytes ( %) (Auto) 45.9H, Monocytes (%) (Auto) 9.2, Eosinophils (%) (Auto) 7.2H, Basophils (%) (Auto) 1.5, Sodium Level 139, Potassium Level 4.1, Chloride Level 105, Carbon Dioxide Level 25, Anion Gap 9, Blood Urea Nitrogen 41H, Creatinine 3.0H, Estimat Glomerular Filtration Rate , Glucose Level 136H, Calcium Level 8.8 , Phosphorus Level 4.1, Magnesium Level 2.2, Total Bilirubin 0.5, Aspartate Amino Transf (AST/SGOT) 22, Alanine Aminotransferase (ALT/SGPT) 18, Alkaline Phosphatase 100, Total Protein 7.2, Albumin 2.7L, Globulin 4.5, Albumin/ Globulin Ratio 0.6L Current Medications Medications (Trade) Dose Ordered Sig/Venessa Route PRN Reason Start Time Stop Time Status Last Admin Dose Admin Acetaminophen (Tylenol) 650 mg Q4H PRN ORAL fever 02/17/18 16:29 03/18/18 16:28 Allopurinol (Zyloprim) 200 mg DAILY ORAL 02/18/18 09:00 03/20/18 08:59 02/25/18 08:34 Chlorhexidine Gluconate (Kelsea-Hex 2%) 1 applic DAILY@1999 TOPIC 02/19/18 20:00 03/21/18 19:59 02/24/18 21:27 Dextrose (Dextrose 50%) 25 ml Q30M PRN IV Hypoglycemia 02/17/18 16:29 03/19/18 16:28 Dextrose (Dextrose 50%) 50 ml Q30M PRN IV Hypoglycemia 02/17/18 16:30 03/19/18 06:59 Docusate Sodium (Colace) 100 mg THREE TIMES A DAY ORAL 02/17/18 18:00 03/19/18 17:59 02/25/18 08:32 Finasteride (Proscar) 5 mg DAILY ORAL 02/18/18 09:00 03/19/18 08:59 02/25/18 08:33 Heparin Sodium (Porcine) (Heparin 5000 units/ml) 5,000 units EVERY 12 HOURS SUBQ 02/17/18 21:00 03/18/18 20:59 02/25/18 08:35 Insulin Aspart (NovoLOG) BEFORE MEALS AND HS SUBQ 02/17/18 16:30 03/18/18 16:29 02/25/18 06:23 Insulin Aspart (NovoLOG) 8 units NOVOTIAC SUBQ 02/20/18 11:50 03/19/18 07:59 02/25/18 06:23 Insulin Detemir (Levemir) 24 units DAILY SUBQ 02/20/18 09:00 03/19/18 08:59 02/25/18 08:40 Meropenem 500 mg/ Sodium Chloride 55 ml @ 110 mls/hr EVERY 12 HOURS IVPB 02/17/18 21:00 03/02/18 22:00 02/25/18 08:36 Nitroglycerin (Ntg) 0.4 mg Q5M PRN SL Prn Chest Pain 02/17/18 16:30 03/18/18 14:29 Ondansetron HCl (Zofran) 4 mg Q6H PRN IVP Nausea & Vomiting 02/17/18 16:30 03/18/18 16:29 Polyethylene Glycol (Miralax) 17 gm DAILYPRN PRN ORAL Constipation 02/17/18 16:30 03/19/18 16:29 Tamsulosin HCl (Flomax) 0.4 mg BID ORAL 02/18/18 09:00 03/20/18 08:59 02/25/18 08:32 Joyce Winters MD Feb 25, 2018 11:55
[2018-02-25 12:00] VITALS: BP 159/80
--- NOTE | 2018-02-25 12:02 | General Progress Note ---
Assessment/Plan Problem List: (1) Diabetes mellitus ICD Codes: E11.9 - Type 2 diabetes mellitus without complications SNOMED: 79975753 (2) Acute on chronic renal failure ICD Codes: N17.9 - Acute kidney failure, unspecified; N18.9 - Chronic kidney disease, unspecified SNOMED: 935642568 (3) UTI (urinary tract infection) ICD Codes: N39.0 - Urinary tract infection, site not specified SNOMED: 58249010 (4) Hyperglycemia ICD Codes: R73.9 - Hyperglycemia, unspecified SNOMED: 18282538 (5) Dehydration ICD Codes: E86.0 - Dehydration SNOMED: 73415283 Status: stable, progressing Assessment/Plan ot pt diet abx dc to snf if clear Subjective Constitutional: Reports: weakness Allergies: Coded Allergies: PENICILLINS (Verified Allergy, Unknown, 01/10/18) All Systems: reviewed and negative except above Subjective sleepy calm Objective Last 24 Hour Vital Signs Date Time Temp Pulse Resp B/P (MAP) Pulse Ox O2 Delivery O2 Flow Rate FiO2 02/25/18 09:34 Room Air 02/25/18 09:00 Room Air 02/25/18 07:34 97.5 84 16 163/83 (109) 97 02/25/18 04:00 97.8 75 18 142/82 (102) 97 02/25/18 00:00 97.8 64 21 134/60 (84) 97 02/24/18 21:00 Room Air 02/24/18 20:00 97.7 71 16 148/82 (104) 98 02/24/18 16:00 98.1 86 18 112/57 (75) 96 Intake and Output 02/24/18 02/25/18 18:59 06:59 Intake Total 55 ml Output Total 800 ml 400 ml Balance -745 ml -400 ml IV Total 55 ml Output Urine Total 800 ml 400 ml # Voids 2 # Bowel Movements 1 Laboratory Tests 02/25/18 06:05: White Blood Count 7.4, Red Blood Count 4.23L, Hemoglobin 12.8L, Hematocrit 37.0L , Mean Corpuscular Volume 88, Mean Corpuscular Hemoglobin 30.3, Mean Corpuscular Hemoglobin Concent 34.6, Red Cell Distribution Width 11.8, Platelet Count 197, Mean Platelet Volume 9.0, Neutrophils (%) (Auto) 36.2L, Lymphocytes ( %) (Auto) 45.9H, Monocytes (%) (Auto) 9.2, Eosinophils (%) (Auto) 7.2H, Basophils (%) (Auto) 1.5, Sodium Level 139, Potassium Level 4.1, Chloride Level 105, Carbon Dioxide Level 25, Anion Gap 9, Blood Urea Nitrogen 41H, Creatinine 3.0H, Estimat Glomerular Filtration Rate , Glucose Level 136H, Calcium Level 8.8 , Phosphorus Level 4.1, Magnesium Level 2.2, Total Bilirubin 0.5, Aspartate Amino Transf (AST/SGOT) 22, Alanine Aminotransferase (ALT/SGPT) 18, Alkaline Phosphatase 100, Total Protein 7.2, Albumin 2.7L, Globulin 4.5, Albumin/ Globulin Ratio 0.6L Height (Feet): 5 Height (Inches): 6.00 Weight (Pounds): 149 General Appearance: lethargic, confused EENT: normal ENT inspection Neck: normal alignment Cardiovascular: normal peripheral pulses, normal rate, regular rhythm Respiratory/Chest: chest wall non-tender, lungs clear, normal breath sounds Abdomen: normal bowel sounds, non tender, soft Extremities: normal inspection Edema: no edema noted Arm (L), no edema noted Arm (R), no edema noted Leg (L), no edema noted Leg (R), no edema noted Pedal (L), no edema noted Pedal (R), no edema noted Generalized Neurologic: motor weakness Skin: normal pigmentation, warm/dry Kevon Viera DO Feb 25, 2018 12:02
[2018-02-25] MEDS ORDERED: NS 500ML ONE (15:13)
[2018-02-25] MEDS ORDERED: Tubing IV Secondary IV ONE (15:13)
[2018-02-25 16:00] VITALS: BP 156/92
--- NOTE | 2018-02-25 17:55 | Infectious Diseases Prog Note ---
Assessment/Plan Assessment/Plan ASSESSMENT: The patient is an 82-year-old male with UTI. UCX ESBL E. coli. US kid : no hydroureter doubt prostatitis.: PSA : nl +ve blood cx ( 02/17) 2 : CoNS Contaminant +ve blood Cx ( 02/17) 1 ESBL EColi Leukocytosis, SP EF: 70% JENNY / CKD. Cr improving Bilateral hearing loss Dementia BPH Hypertension History of hydronephrosis Diabetes CKD Allergic to penicillin? (severity of reaction), the patient tolerated Carbapenem PLAN: Cont pt on on IV meropenem day # , , ok to DC on Invanz 1 gm daily to complete the course 02/19 Sp IV Vanco d# 2 Monitor CBC Monitor BMP Nephrology follow up Subjective Allergies: Coded Allergies: PENICILLINS (Verified Allergy, Unknown, 01/10/18) Subjective sleeping comfortably Objective Vital Signs Last 24 Hour Vital Signs Date Time Temp Pulse Resp B/P (MAP) Pulse Ox O2 Delivery O2 Flow Rate FiO2 02/25/18 16:00 97.9 91 20 156/92 (113) 97 02/25/18 12:00 97.5 67 22 159/80 (106) 97 02/25/18 09:34 Room Air 02/25/18 09:00 Room Air 02/25/18 07:34 97.5 84 16 163/83 (109) 97 02/25/18 04:00 97.8 75 18 142/82 (102) 97 02/25/18 00:00 97.8 64 21 134/60 (84) 97 02/24/18 21:00 Room Air 02/24/18 20:00 97.7 71 16 148/82 (104) 98 Height (Feet): 5 Height (Inches): 6.00 Weight (Pounds): 149 HEENT: atraumatic Respiratory/Chest: respiratory distress Cardiovascular: regularly irregular Abdomen: no organomegaly Laboratory Tests Test 02/25/18 06:05 White Blood Count 7.4 K/UL (4.8-10.8) Red Blood Count 4.23 M/UL (4.70-6.10) L Hemoglobin 12.8 G/DL (14.2-18.0) L Hematocrit 37.0 % (42.0-52.0) L Mean Corpuscular Volume 88 FL (80-99) Mean Corpuscular Hemoglobin 30.3 PG (27.0-31.0) Mean Corpuscular Hemoglobin Concent 34.6 G/DL (32.0-36.0) Red Cell Distribution Width 11.8 % (11.6-14.8) Platelet Count 197 K/UL (150-450) Mean Platelet Volume 9.0 FL (6.5-10.1) Neutrophils (%) (Auto) 36.2 % (45.0-75.0) L Lymphocytes (%) (Auto) 45.9 % (20.0-45.0) H Monocytes (%) (Auto) 9.2 % (1.0-10.0) Eosinophils (%) (Auto) 7.2 % (0.0-3.0) H Basophils (%) (Auto) 1.5 % (0.0-2.0) Sodium Level 139 MMOL/L (136-145) Potassium Level 4.1 MMOL/L (3.5-5.1) Chloride Level 105 MMOL/L (98-107) Carbon Dioxide Level 25 MMOL/L (21-32) Anion Gap 9 mmol/L (5-15) Blood Urea Nitrogen 41 mg/dL (7-18) H Creatinine 3.0 MG/DL (0.55-1.30) H Estimat Glomerular Filtration Rate mL/min (>60) Glucose Level 136 MG/DL (74-106) H Calcium Level 8.8 MG/DL (8.5-10.1) Phosphorus Level 4.1 MG/DL (2.5-4.9) Magnesium Level 2.2 MG/DL (1.8-2.4) Total Bilirubin 0.5 MG/DL (0.2-1.0) Aspartate Amino Transf (AST/SGOT) 22 U/L (15-37) Alanine Aminotransferase (ALT/SGPT) 18 U/L (12-78) Alkaline Phosphatase 100 U/L (46-116) Total Protein 7.2 G/DL (6.4-8.2) Albumin 2.7 G/DL (3.4-5.0) L Globulin 4.5 g/dL Albumin/Globulin Ratio 0.6 (1.0-2.7) L Current Medications Medications (Trade) Dose Ordered Sig/Venessa Route PRN Reason Start Time Stop Time Status Last Admin Dose Admin Acetaminophen (Tylenol) 650 mg Q4H PRN ORAL fever 02/17/18 16:29 03/18/18 16:28 Allopurinol (Zyloprim) 200 mg DAILY ORAL 02/18/18 09:00 03/20/18 08:59 02/25/18 08:34 Chlorhexidine Gluconate (Kelsea-Hex 2%) 1 applic DAILY@2000 TOPIC 02/19/18 20:00 03/21/18 19:59 02/24/18 21:27 Dextrose (Dextrose 50%) 25 ml Q30M PRN IV Hypoglycemia 02/17/18 16:29 03/19/18 16:28 Dextrose (Dextrose 50%) 50 ml Q30M PRN IV Hypoglycemia 02/17/18 16:30 03/19/18 06:59 Docusate Sodium (Colace) 100 mg THREE TIMES A DAY ORAL 02/17/18 18:00 03/19/18 17:59 02/25/18 17:18 Finasteride (Proscar) 5 mg DAILY ORAL 02/18/18 09:00 03/19/18 08:59 02/25/18 08:33 Heparin Sodium (Porcine) (Heparin 5000 units/ml) 5,000 units EVERY 12 HOURS SUBQ 02/17/18 21:00 03/18/18 20:59 02/25/18 08:35 Insulin Aspart (NovoLOG) BEFORE MEALS AND HS SUBQ 02/17/18 16:30 03/18/18 16:29 02/25/18 17:21 Insulin Aspart (NovoLOG) 8 units NOVOTIAC SUBQ 02/20/18 11:50 03/19/18 07:59 02/25/18 17:22 Insulin Detemir (Levemir) 24 units DAILY SUBQ 02/20/18 09:00 03/19/18 08:59 02/25/18 08:40 Meropenem 500 mg/ Sodium Chloride 55 ml @ 110 mls/hr EVERY 12 HOURS IVPB 02/17/18 21:00 03/02/18 22:00 02/25/18 08:36 Nitroglycerin (Ntg) 0.4 mg Q5M PRN SL Prn Chest Pain 02/17/18 16:30 03/18/18 14:29 Ondansetron HCl (Zofran) 4 mg Q6H PRN IVP Nausea & Vomiting 02/17/18 16:30 03/18/18 16:29 Polyethylene Glycol (Miralax) 17 gm DAILYPRN PRN ORAL Constipation 02/17/18 16:30 03/19/18 16:29 Tamsulosin HCl (Flomax) 0.4 mg BID ORAL 02/18/18 09:00 03/20/18 08:59 02/25/18 17:18 Deshaun Cheung MD Feb 25, 2018 17:55
--- NOTE | 2018-02-26 12:26 | Discharge Summary ---
Discharge Summary Discharge Summary _ DATE OF ADMISSION: 02/16/2018 DATE OF DISCHARGE: 02/25/2018 REASON FOR ADMISSION: 82 years old male with past medical history of hypertension, chronic kidney disease stage IV, insulin-dependent diabetes mellitus, BPH, bilateral hearing loss, dementia, presented from home . History was obtained essentially from the patient's son. Over the past several days patient was acting weaker than usually , and became more lethargic. No reports of fever. No chest pain or shortness of breath. According to son, patient had no history of diabetes and did not take any diabetic medication. Upon evaluation vital signs reveal elevated blood pressure 162/90. Laboratory workup revealed no leukocytosis. Sodium 131. BUN 93 creatinine 4.9, glucose 989. Troponin negative. Pro BNP 841. Urinalysis with pyuria , positive for nitrate and moderate bacteria. EKG revealed sinus rhythm, no acute ischemic changes. Chest x-ray revealed no acute cardiopulmonary pathology. Patient admitted with diagnoses of acute encephalopathy, acute on chronic renal failure ,dehydration, hyperglycemia associated with diabetes mellitus out of control, noncompliance with insulin, urinary tract infection. CONSULTANTS: pulmonary Dr. Winters ID specialist Dr. Cheung butcher Dr. Ernandez taker out Dr. Correa [facility] COURSE: Patient admitted and started on the IV fluids and empiric antibiotics. Endocrinology consult was requested. Patient started on long-acting Levemir and pre-meal short acting NovoLog . Sliding scale of insulin was on board as needed before meals and at bedtime. Anti-glycemic regimen uptitrated while patient was in the hospital, and to be continued at the [facility] facility. Hemoglobin A1c -10.5, clearly not at goal. Infectious disease specialist followed. Initial blood culture revealed 1 out of 2 Staphylococcus hominis. Urine culture grew Escherichia coli ESBL. Subsequent blood culture revealed Escherichia coli ESBL, likely due to UTI. Last blood culture on documented as negative. Echocardiogram was done to rule out vegetation and revealed no evidence of vegetation. Preserved ejection fraction of 65-70%. No evidence of left ventricular hypertrophy. No evidence of pericardial effusion. No wall motion abnormality. Right ventricular systolic pressure of 38 consistent with mild pulmonary hypertension. Patient was on meropenem while in the hospital. ID specialist cleared for discharge on Invanz 1 g daily to complete the course. General Farmworker closely followed. Patient had chronic kidney disease stage IV with superimposed acute renal failure due to dehydration. Patient was on the IV fluids. Renal parameters and electrolytes were closely monitored. Electrolytes corrected as needed. Nephrotoxins were avoided. Renal ultrasound revealed moderate kidney echogenicity consistent with medical renal disease. No definite hydronephrosis. Enlarged prostate. Prior to discharge BUN 41 creatinine 3.0. Blood pressure was managed with calcium channel whit[place]. Supplemental oxygen provided as needed to keep pulse oximetry above 92%. Supportive care provided. Bowel regimen instituted. Patient was working with physical and occupational therapists. Patient stabilized and was ready for transfer to [facility] facility for continuation of care . FINAL DIAGNOSES: Bacteremia with Escherichia coli ESBL, likely due to UTI UTI with Escherichia coli ESBL Urinary retention Acute encephalopathy Diabetes mellitus out of control with hyperglycemia Noncompliance with insulin BPH Acute on chronic renal failure, due to dehydration- resolved BPH Dementia Hypertension DISCHARGE MEDICATIONS: See Medication Reconciliation list. DISCHARGE INSTRUCTIONS: Patient was discharged to the [facility] facility. Follow up with medical doctor at the facility. I have been assigned to dictate discharge summary for this account. I was not involved in the patient's management. Nancy Bazan NP Feb 26, 2018 12:26
== END 2018-02-25 18:15 | DRG 420 ==
LOC: EMR 13:21 → 2E 13:28 → EDBEDREQ 14:31 → 4E 02-17 16:27
PROC: 02HV33Z Insertion of Infusion Device into Superior Vena Cava, Percutaneous Approach (ICD-10-PCS; principal; 2018-02-19)
PROC: B548ZZA Ultrasonography of Superior Vena Cava, Guidance (ICD-10-PCS; 2018-02-19)
DX: E11.65 Type 2 diabetes mellitus with hyperglycemia (principal); G93.40 Encephalopathy, unspecified; N18.4 Chronic kidney disease, stage 4 (severe); R78.81 Bacteremia; N39.0 Urinary tract infection, site not specified; E11.22 Type 2 diabetes mellitus with diabetic chronic kidney disease; I12.9 Hypertensive chronic kidney disease with stage 1 through stage 4 chronic kidney disease, or unspecified chronic kidney disease; F01.50 Vascular dementia, unspecified severity, without behavioral disturbance, psychotic disturbance, mood disturbance, and anxiety; R73.9 Hyperglycemia, unspecified; H91.93 Unspecified hearing loss, bilateral; Z91.14 Patient's other noncompliance with medication regimen; E86.0 Dehydration; N40.1 Benign prostatic hyperplasia with lower urinary tract symptoms; R33.8 Other retention of urine; E88.09 Other disorders of plasma-protein metabolism, not elsewhere classified; Z79.4 Long term (current) use of insulin; Z88.0 Allergy status to penicillin
CPT/HCPCS: 36415; 36569; 71045; 76770; 76937; 80048; 80053; 80061; 80202; 81001; 81003; 82140; 82550; 82553; 82947; 82962; 82977; 83036; 83605; 83690; 83735; 83880; 84100; 84133; 84153; 84300; 84484; 84550; 85025; 85651; 86140; 87040; 87086; 87181; 89050; 93005; 93306; 96361; 96365; 96375; 97803; 99285; J1815; J8499; S0077; S5561